=== PATIENT | male | born 1940 | race Caucasian/White ===

== ENCOUNTER 2024-05-11 10:24 | Inpatient (IN) | payer MEDICARE, OTHER ==
[2024-05-11] VITALS (8 sets, daily range): BP systolic 94–139; BP diastolic 46–72; PULSE 57–80; RESP 18–20; TEMP 98.4; O2SAT 94–100
[~2024-05-11] VITALS: Ht 175.3 cm; Wt 74.2 kg
[2024-05-11 11:28] LABS: Basophils # (auto) 0 10 ^3/uL (0-0.2); Basophils % (auto) 0.4 % (0.0-2.0); Eosinophils # (auto) 0 10 ^3/uL (0-0.8); Hemoglobin 18.4 g/dL (13.5-17.5); Lymphocytes # (auto) 2.5 10 ^3/uL (0.4-5.4); Lymphocytes % (auto) 19.1 % (10.0-50.0); Mean Corpuscular Hemoglobin 34.1 pg (28.0-32.0); Mean Corpuscular Hgb Conc. 33.5 g/dL (32.0-36.0); Mean Corpuscular Volume 101.8 fL (80.0-100.0); Monocytes # (auto) 1.5 10 ^3/uL (0-1.3); Monocytes % (auto) 11.5 % (0.0-12.0); Neutrophils # (auto) 8.9 10 ^3/uL (1.6-8.6); Nucleated Red Blood Cells % 0.2 %; Platelet Count (auto) 227 10^3/uL (140-450); Red Blood Cells 5.41 10^6/uL (4.5-5.90); Red Cell Distribution Width 16.1 % (11.8-14.3); White Blood Cell 12.9 10^3/uL (4.4-10.8)
[2024-05-11] MEDS: ETOMIDATE (2MG/ML) 20ML VIAL IV ONE ×2 (11:29→19:03)
[2024-05-11] MEDS: SUCCINYLCHOLINE CHLORIDE 20 MG/ML 10ML VIAL IV ONE ×2 (11:30→19:03)
[2024-05-11] MEDS: NALOXONE HCL 1MG/ML 2ML SYRINGE IV ONE (11:30)
[2024-05-11 11:41] LABS: Chloride 112 mmol/L (98-107); Potassium 4.6 mmol/L (3.5-5.1); Sodium 146 mmol/L (136-145)
[2024-05-11 11:42] LABS: Anion Gap 6 (5-15); Calcium 9.1 mg/dL (8.7-10.4); Carbon Dioxide 28 mmol/L (20-31)
[2024-05-11 11:47] LABS: Blood Urea Nitrogen 20 mg/dL (9-23); Glucose 158 mg/dL (74-106)
[2024-05-11] MEDS: MIDAZOLAM DRIP 50 mg/50mL 50 ML IV SCH (11:53)
[2024-05-11] MEDS: NOREPINEPHRINE 8 MG/250ML KIT 250 ML IV SCH (12:09)
[2024-05-11 12:35] LABS: Urine Bacteria None Seen /hpf (None Seen)
[2024-05-11 13:05] LABS: Urine Blood Negative /uL (Negative); Urine Clarity Clear (Clear); Urine Color Dark-Yellow (Yellow); Urine Hyaline Cast MOD /lpf (0 - 2); Urine Mucus FEW (None Seen); Urine Protein, UAD 2+ (Negative); Urine Specific Gravity 1.043 (1.001-1.035); Urine Urobilinogen 6 mg/dL (Negative); Urine WBC 2 /hpf (0 - 3); Urine pH 5.5 (5.0-9.0)
[2024-05-11 13:11] LABS: Base Excess -4.9 mmol/L (-2.0-3.0)
[2024-05-11 14:19] LABS: Amphetamine Screen, Urine Neg (NEGATIVE); Barbiturate Scree,Urine Neg (NEGATIVE); Benzodiazephine Screen, Urine Neg (NEGATIVE); Cocaine Screen, Urine Neg (NEGATIVE); Opiate Scree,Urine Neg (NEGATIVE)
[2024-05-11 14:20] LABS: Cannabinoid Screen, Urine Neg (NEGATIVE); Phencyclidine Screen, Urine Neg (NEGATIVE)
[2024-05-11 14:34] LABS: INR 1.09 (0.9-1.15); Partial Thromboplastin Time 25.2 SEC (24.5-34.5); Prothrombin Time 11.5 sec (9.3-11.8)
[2024-05-11] MEDS: HEPARIN DRIP/D5W 100UNITS/ML 250 ML IV SCH (14:43)
[2024-05-11] MEDS: HEPARIN SODIUM (PORCINE) 5000 UNITS/ML 1ML VIAL IV ONE (14:56)
[2024-05-11 15:14] LABS: Basophils # (auto) 0.1 10 ^3/uL (0-0.2); Basophils % (auto) 0.3 % (0.0-2.0); Eosinophils # (auto) 0 10 ^3/uL (0-0.8); Eosinophils % (auto) 0.1 % (0.0-7.0); Hematocrit 49.9 % (41.0-53.0); Hemoglobin 17.1 g/dL (13.5-17.5); Lymphocytes # (auto) 2.3 10 ^3/uL (0.4-5.4); Lymphocytes % (auto) 14.5 % (10.0-50.0); Mean Corpuscular Hemoglobin 33.8 pg (28.0-32.0); Mean Corpuscular Hgb Conc. 34.3 g/dL (32.0-36.0); Mean Corpuscular Volume 98.6 fL (80.0-100.0); Monocytes # (auto) 1.6 10 ^3/uL (0-1.3); Neutrophils % (auto) 75.1 % (37.0-80.0); Nucleated Red Blood Cells % 0.3 %; Platelet Count (auto) 265 10^3/uL (140-450); Red Blood Cells 5.07 10^6/uL (4.5-5.90)
[2024-05-11 15:28] LABS: Magnesium 2.3 mg/dL (1.6-2.6)
[2024-05-11] MEDS ORDERED: ASPirin 325 MG TAB PO ONE (17:15)
[2024-05-11] MEDS ORDERED: MORPHINE SULFATE INJ 2 MG/ml SYRG IV PRN ×2 (17:15→23:15)
[2024-05-11] MEDS ORDERED: NITROGLYCERIN 0.4 MG SL TAB SL PRN ×2 (17:15→23:15)
[2024-05-11] MEDS: ASPirin 81 mg TAB PO ONE (17:57)
[2024-05-11] MEDS: CLOPIDOGREL BISULFATE 75 MG TAB PO ONE (17:58)
[2024-05-11] MEDS: DOBUTamine 1000MCG/ML 250 ML IV SCH (17:59)
[2024-05-11] MEDS: FUROSEMIDE 20 MG/2 ML VIAL IV ONE (17:59)
[2024-05-11] MEDS: NALOXONE HCL 1MG/ML 2ML SYRINGE ONE (19:02)
[2024-05-11] MEDS: NOREPINEPHRINE 8 MG/250ML KIT 250 ML IV ONE (19:03)
[2024-05-11 20:45] LABS: INR 1.16 (0.9-1.15); Prothrombin Time 12.2 sec (9.3-11.8)
[2024-05-11] MEDS: ATORVASTATIN 20 MG TAB PO SCH (23:33)
[2024-05-12] VITALS (14 sets, daily range): BP systolic 105–144; BP diastolic 46–74; PULSE 69–88; RESP 18; O2SAT 93–96
[2024-05-12] MEDS: cefTRIAXone 1GM/50ML D5W 50 ML IV ONE (02:00)
[2024-05-12 03:46] LABS: Basophils # (auto) 0.1 10 ^3/uL (0-0.2); Basophils % (auto) 0.4 % (0.0-2.0); Eosinophils # (auto) 0.1 10 ^3/uL (0-0.8); Eosinophils % (auto) 0.6 % (0.0-7.0); Hematocrit 47.7 % (41.0-53.0); Hemoglobin 16.5 g/dL (13.5-17.5); Lymphocytes # (auto) 1.7 10 ^3/uL (0.4-5.4); Lymphocytes % (auto) 13.3 % (10.0-50.0); Mean Corpuscular Hemoglobin 33.9 pg (28.0-32.0); Mean Corpuscular Hgb Conc. 34.6 g/dL (32.0-36.0); Monocytes # (auto) 1.2 10 ^3/uL (0-1.3); Monocytes % (auto) 9.2 % (0.0-12.0); Neutrophils # (auto) 9.7 10 ^3/uL (1.6-8.6); Neutrophils % (auto) 76.5 % (37.0-80.0); Nucleated Red Blood Cells % 0.1 %; Platelet Count (auto) 172 10^3/uL (140-450); Red Blood Cells 4.87 10^6/uL (4.5-5.90); Red Cell Distribution Width 15.5 % (11.8-14.3); White Blood Cell 12.6 10^3/uL (4.4-10.8)
[2024-05-12 03:58] LABS: Alanine Aminotransferase 18 U/L (7-40); Albumin 3.6 g/dL (3.2-4.8); Alkaline Phosphatase 77 U/L (46-116); Anion Gap 7 (5-15); Aspartate Aminotransferase 27 U/L (13-40); BUN/Creatinine Ratio 13.9 (10.0-20.0); Blood Urea Nitrogen 25 mg/dL (9-23); Calcium 9.2 mg/dL (8.7-10.4); Carbon Dioxide 29 mmol/L (20-31); Chloride 110 mmol/L (98-107); Glucose 134 mg/dL (74-106); Potassium 3.4 mmol/L (3.5-5.1); Sodium 146 mmol/L (136-145); Total Protein 5.9 g/dL (5.7-8.2)
[2024-05-12 04:13] LABS: Bilirubin, Total 0.8 mg/dL (0.2-1.0)
[2024-05-12] MEDS: HEPARIN DRIP/D5W 100UNITS/ML 250 ML IV SCH ×2 (05:20→16:46)
[2024-05-12] MEDS: SODIUM CHLOR 0.9% PF (SALINE LOCK) 10ML VIAL/SYR IV SCH (06:01)
[2024-05-12 07:29] LABS: Base Excess 1.3 mmol/L (-2.0-3.0)
[2024-05-12 09:52] LABS: INR 1.15 (0.9-1.15); Partial Thromboplastin Time 64.7 SEC (24.5-34.5); Prothrombin Time 12.1 sec (9.3-11.8)
[2024-05-12] MEDS ORDERED: FUROSEMIDE 20 MG/2 ML VIAL IV SCH (10:00)
[2024-05-12] MEDS: FUROSEMIDE 20 MG/2 ML VIAL IV SCH (10:11)
[2024-05-12] MEDS: FAMOTIDINE (10MG/ML) 2ML VL IV SCH (10:11)
[2024-05-12] MEDS: POTASSIUM CHL 20MEQ/100ML 100 ML IV ONE (10:14)
[2024-05-12] MEDS: ASPirin 81 mg TAB PO SCH (10:30)
[2024-05-12] MEDS: CLOPIDOGREL BISULFATE 75 MG TAB PO SCH (10:30)
[2024-05-12 14:09] LABS: Urine Bacteria MANY /hpf (None Seen); Urine Blood 3+ /uL (Negative); Urine Clarity Turbid (Clear); Urine Color Yellow (Yellow); Urine Hyaline Cast FEW /lpf (0 - 2); Urine Mucus MODERATE (None Seen); Urine Protein, UAD 1+ (Negative); Urine Specific Gravity 1.027 (1.001-1.035); Urine Urobilinogen Normal (Negative); Urine WBC 22 /hpf (0 - 3); Urine pH 5.5 (5.0-9.0)
[2024-05-12 14:12] LABS: Protein, Urine 41.9 mg/dL (1-14)
[2024-05-12 14:23] LABS: Creatinine, Urine 273.38 mg/dL (30.0-125.0)
[2024-05-12 15:56] LABS: INR 1.14 (0.9-1.15); Partial Thromboplastin Time 47.9 SEC (24.5-34.5)
[2024-05-12] MEDS: cefTRIAXone 1GM/50ML D5W 50 ML IV SCH (21:19)
[2024-05-12 22:42] LABS: INR 1.26 (0.9-1.15); Partial Thromboplastin Time 50.6 SEC (24.5-34.5); Prothrombin Time 13.1 sec (9.3-11.8)
[2024-05-13] VITALS (14 sets, daily range): BP systolic 92–118; BP diastolic 45–82; PULSE 74–84; RESP 18–19; O2SAT 92–100
[2024-05-13] MEDS ORDERED: IBUPROFEN 100MG/5ML ORAL SUSP 100 MG/5 ML UD GT PRN (03:45)
[2024-05-13 06:00] LABS: Basophils # (auto) 0 10 ^3/uL (0-0.2); Basophils % (auto) 0.2 % (0.0-2.0); Eosinophils # (auto) 0.1 10 ^3/uL (0-0.8); Eosinophils % (auto) 0.8 % (0.0-7.0); Hematocrit 50.6 % (41.0-53.0); Hemoglobin 17.1 g/dL (13.5-17.5); Lymphocytes # (auto) 1.2 10 ^3/uL (0.4-5.4); Lymphocytes % (auto) 7.1 % (10.0-50.0); Mean Corpuscular Hemoglobin 33.8 pg (28.0-32.0); Mean Corpuscular Hgb Conc. 33.7 g/dL (32.0-36.0); Mean Corpuscular Volume 100.4 fL (80.0-100.0); Monocytes # (auto) 1.4 10 ^3/uL (0-1.3); Monocytes % (auto) 8.4 % (0.0-12.0); Neutrophils # (auto) 14.2 10 ^3/uL (1.6-8.6); Neutrophils % (auto) 83.5 % (37.0-80.0); Nucleated Red Blood Cells % 0.2 %; Platelet Count (auto) 184 10^3/uL (140-450); Red Blood Cells 5.04 10^6/uL (4.5-5.90); Red Cell Distribution Width 16.3 % (11.8-14.3)
[2024-05-13 06:16] LABS: Alanine Aminotransferase 15 U/L (7-40); Albumin 3.7 g/dL (3.2-4.8); Alkaline Phosphatase 88 U/L (46-116); Anion Gap 9 (5-15); Aspartate Aminotransferase 28 U/L (13-40); Bilirubin, Total 1.4 mg/dL (0.2-1.0); Blood Urea Nitrogen 31 mg/dL (9-23); Calcium 9.2 mg/dL (8.7-10.4); Carbon Dioxide 27 mmol/L (20-31); Chloride 109 mmol/L (98-107); Glucose 98 mg/dL (74-106); Potassium 3.6 mmol/L (3.5-5.1); Sodium 145 mmol/L (136-145); Uric Acid 5.8 mg/dL (3.7-9.2)
[2024-05-13 06:39] LABS: INR 1.16 (0.9-1.15); Partial Thromboplastin Time 60.9 SEC (24.5-34.5); Prothrombin Time 12.2 sec (9.3-11.8)
[2024-05-13 07:30] LABS: Base Excess 3.4 mmol/L (-2.0-3.0)
[2024-05-13 12:29] LABS: Prothrombin Time 13.5 sec (9.3-11.8)
[2024-05-13 12:32] LABS: Partial Thromboplastin Time > 139.0 SEC (24.5-34.5)
[2024-05-13] MEDS: HEPARIN DRIP/D5W 100UNITS/ML 250 ML IV SCH (13:32)
[2024-05-13] MEDS: PIPERACILLIN-TAZOB 3.375GM 100 ML IV SCH (13:38)
[2024-05-13] MEDS: ACETAMINOPHEN 650 MG RECT SUPP PR PRN (19:02)
[2024-05-13 19:58] LABS: INR 1.19 (0.9-1.15); Partial Thromboplastin Time 32.1 SEC (24.5-34.5); Prothrombin Time 12.5 sec (9.3-11.8)
[2024-05-14] VITALS (105 sets, daily range): BP systolic 93–150; BP diastolic 43–106; PULSE 58–88; RESP 12–20; TEMP 84.4–99.5; O2SAT 92–100
[2024-05-14 04:30] LABS: Basophils # (auto) 0 10 ^3/uL (0-0.2); Basophils % (auto) 0.3 % (0.0-2.0); Eosinophils # (auto) 0.1 10 ^3/uL (0-0.8); Eosinophils % (auto) 0.7 % (0.0-7.0); Hematocrit 45.1 % (41.0-53.0); Hemoglobin 15.4 g/dL (13.5-17.5); Lymphocytes # (auto) 1.2 10 ^3/uL (0.4-5.4); Lymphocytes % (auto) 7.1 % (10.0-50.0); Mean Corpuscular Hemoglobin 33.5 pg (28.0-32.0); Mean Corpuscular Hgb Conc. 34.2 g/dL (32.0-36.0); Mean Corpuscular Volume 97.9 fL (80.0-100.0); Monocytes # (auto) 1.4 10 ^3/uL (0-1.3); Monocytes % (auto) 8.4 % (0.0-12.0); Neutrophils # (auto) 13.6 10 ^3/uL (1.6-8.6); Neutrophils % (auto) 83.5 % (37.0-80.0); Platelet Count (auto) 180 10^3/uL (140-450); Red Cell Distribution Width 15.9 % (11.8-14.3); White Blood Cell 16.3 10^3/uL (4.4-10.8)
[2024-05-14 04:43] LABS: Alanine Aminotransferase 14 U/L (7-40); Alkaline Phosphatase 88 U/L (46-116); Anion Gap 6 (5-15); BUN/Creatinine Ratio 18.2 (10.0-20.0); Blood Urea Nitrogen 29 mg/dL (9-23); Carbon Dioxide 29 mmol/L (20-31); Chloride 107 mmol/L (98-107); Glucose 139 mg/dL (74-106); Potassium 2.9 mmol/L (3.5-5.1); Sodium 142 mmol/L (136-145)
[2024-05-14 04:44] LABS: Albumin 3.5 g/dL (3.2-4.8); Aspartate Aminotransferase 30 U/L (13-40)
[2024-05-14 04:45] LABS: Bilirubin, Total 1.8 mg/dL (0.2-1.0)
[2024-05-14] MEDS: MEROPENEM 500MG IVPB 50 ML IV ONE (05:58)
[2024-05-14 08:29] LABS: Base Excess 1.9 mmol/L (-2.0-3.0)
[2024-05-14] MEDS: POTASSIUM CHL 20MEQ/100ML 100 ML IV SCH (08:33)
[2024-05-14] MEDS: SPIRONOLACTONE 25 MG TAB PO ONE (09:51)
[2024-05-14] MEDS: ALBUMIN 25% 100 ML IV ONE (11:28)
[2024-05-14] MEDS: BUMETANIDE 2.5mg/10ml (0.25 mg/ml) INJ IV ONE (11:55)
[2024-05-14] MEDS ORDERED: Nepro With Carb Steady 1 Liter Bottle GT SCH (22:30)
[2024-05-14] MEDS: ERTAPENEM SOD INJ 1 GM in SODIUM CHL 0.9% 50 ML IV ONE (22:49)
[2024-05-15] VITALS (106 sets, daily range): BP systolic 99–164; BP diastolic 50–81; PULSE 51–102; RESP 13–29; TEMP 96.4–99.9; O2SAT 93–100
[2024-05-15 03:50] LABS: Basophils # (auto) 0 10 ^3/uL (0-0.2); Basophils % (auto) 0.3 % (0.0-2.0); Eosinophils # (auto) 0.3 10 ^3/uL (0-0.8); Eosinophils % (auto) 2.7 % (0.0-7.0); Hematocrit 45.9 % (41.0-53.0); Hemoglobin 15.8 g/dL (13.5-17.5); Lymphocytes # (auto) 1.2 10 ^3/uL (0.4-5.4); Lymphocytes % (auto) 10.6 % (10.0-50.0); Mean Corpuscular Hemoglobin 33.6 pg (28.0-32.0); Mean Corpuscular Hgb Conc. 34.4 g/dL (32.0-36.0); Mean Corpuscular Volume 97.9 fL (80.0-100.0); Monocytes # (auto) 1.1 10 ^3/uL (0-1.3); Monocytes % (auto) 9.5 % (0.0-12.0); Neutrophils # (auto) 8.9 10 ^3/uL (1.6-8.6); Neutrophils % (auto) 76.9 % (37.0-80.0); Nucleated Red Blood Cells % 0.1 %; Platelet Count (auto) 178 10^3/uL (140-450); Red Blood Cells 4.69 10^6/uL (4.5-5.90); Red Cell Distribution Width 15.8 % (11.8-14.3); White Blood Cell 11.5 10^3/uL (4.4-10.8)
[2024-05-15 03:55] LABS: Anion Gap 8 (5-15); Carbon Dioxide 32 mmol/L (20-31); Chloride 104 mmol/L (98-107); Sodium 144 mmol/L (136-145)
[2024-05-15 03:56] LABS: Calcium 9.7 mg/dL (8.7-10.4)
[2024-05-15 04:01] LABS: Blood Urea Nitrogen 26 mg/dL (9-23); Glucose 105 mg/dL (74-106)
[2024-05-15] MEDS: POTASSIUM CHL 20MEQ/100ML 100 ML IV SCH (05:21)
[2024-05-15 06:17] LABS: Base Excess 5.7 mmol/L (-2.0-3.0)
[2024-05-15 06:18] LABS: Base Excess 5.7 mmol/L (-2.0-3.0)
[2024-05-15] MEDS ORDERED: VANCOMYCIN PER PHARMACY 0 MG IV SCH (13:45)
[2024-05-15] MEDS: MUPIROCIN 2% OINT 15gm or 22gm FOR MRSA NARES EACHNOSTRI SCH (14:37)
[2024-05-15] MEDS: BUMETANIDE 2.5mg/10ml (0.25 mg/ml) INJ IV ONE (14:37)
[2024-05-15] MEDS: SPIRONOLACTONE 25 MG TAB PO ONE (14:37)
[2024-05-15] MEDS: ERYTHROMY OPTH OINT 5mg/gm 1gm or 3.5gm tube OP SCH (18:00)
[2024-05-15] MEDS: ERTAPENEM SOD INJ 0.5 GM in SODIUM CHL 0.9% 50 ML IV SCH (22:29)
[2024-05-15] MEDS: VANCOMYCIN 1.5GM/300ML 300 ML IV ONE (22:29)
[2024-05-16] VITALS (108 sets, daily range): BP systolic 97–167; BP diastolic 42–78; PULSE 54–114; RESP 8–43; TEMP 62.8–99.9; O2SAT 89–100
[2024-05-16 04:28] LABS: Basophils # (auto) 0 10 ^3/uL (0-0.2); Basophils % (auto) 0.4 % (0.0-2.0); Eosinophils # (auto) 0.4 10 ^3/uL (0-0.8); Eosinophils % (auto) 4.1 % (0.0-7.0); Hematocrit 44.7 % (41.0-53.0); Hemoglobin 15.4 g/dL (13.5-17.5); Lymphocytes # (auto) 1.2 10 ^3/uL (0.4-5.4); Lymphocytes % (auto) 13.6 % (10.0-50.0); Mean Corpuscular Hemoglobin 33.9 pg (28.0-32.0); Mean Corpuscular Hgb Conc. 34.5 g/dL (32.0-36.0); Monocytes # (auto) 0.9 10 ^3/uL (0-1.3); Monocytes % (auto) 10.1 % (0.0-12.0); Neutrophils # (auto) 6.3 10 ^3/uL (1.6-8.6); Neutrophils % (auto) 71.8 % (37.0-80.0); Nucleated Red Blood Cells % 0.1 %; Platelet Count (auto) 196 10^3/uL (140-450); Red Blood Cells 4.56 10^6/uL (4.5-5.90); Red Cell Distribution Width 15.9 % (11.8-14.3); White Blood Cell 8.8 10^3/uL (4.4-10.8)
[2024-05-16 04:46] LABS: Alanine Aminotransferase 18 U/L (7-40); Albumin 3.9 g/dL (3.2-4.8); Alkaline Phosphatase 85 U/L (46-116); Anion Gap 10 (5-15); Aspartate Aminotransferase 31 U/L (13-40); BUN/Creatinine Ratio 20.4 (10.0-20.0); Blood Urea Nitrogen 29 mg/dL (9-23); Calcium 9.7 mg/dL (8.7-10.4); Carbon Dioxide 31 mmol/L (20-31); Chloride 104 mmol/L (98-107); Glucose 100 mg/dL (74-106); Magnesium 1.9 mg/dL (1.6-2.6); Potassium 3.2 mmol/L (3.5-5.1); Sodium 145 mmol/L (136-145)
[2024-05-16 04:47] LABS: Bilirubin, Total 1.2 mg/dL (0.2-1.0); Total Protein 6.4 g/dL (5.7-8.2)
[2024-05-16 06:37] LABS: Base Excess 5.1 mmol/L (-2.0-3.0)
[2024-05-16] MEDS: POTASSIUM CHL 20MEQ/100ML 100 ML IV SCH (06:39)
[2024-05-16] MEDS: MAGNESIUM SULFATE 1GM/100ML 100 ML IV ONE (06:55)
[2024-05-16] MEDS: fentaNYL Drip 2500mCg/250mlNS 250 ML IV ONE (09:43)
[2024-05-16] MEDS: fentaNYL Drip 2500mCg/250mlNS 250 ML IV SCH (09:45)
[2024-05-16] MEDS: BUMETANIDE 2.5mg/10ml (0.25 mg/ml) INJ IV ONE (10:46)
[2024-05-16] MEDS: SPIRONOLACTONE 25 MG TAB PO ONE (10:46)
[2024-05-16 11:12] LABS: Base Excess 0.5 mmol/L (-2.0-3.0)
[2024-05-16] MEDS: NITROGLYCERIN 2% OINT 1GM PKG TD ONE (16:15)
[2024-05-16] MEDS: DOBUTamine 1000MCG/ML 250 ML IV SCH ×2 (17:19→20:10)
[2024-05-16 17:56] LABS: Base Excess 3.3 mmol/L (-2.0-3.0)
[2024-05-16 20:45] LABS: Base Excess 4.1 mmol/L (-2.0-3.0)
[2024-05-16] MEDS: ERTAPENEM SOD INJ 1 GM in SODIUM CHL 0.9% 50 ML IV SCH (22:26)
[2024-05-16] MEDS: ONDANSETRON HCL 4 MG/2 ML VIAL IV PRN (22:30)
[2024-05-16] MEDS: VANCOMYCIN 1.25GM/250ML 250 ML IV SCH (23:04)
[2024-05-16 23:08] LABS: Base Excess 4.9 mmol/L (-2.0-3.0)
[2024-05-17] VITALS (95 sets, daily range): BP systolic 95–137; BP diastolic 36–77; PULSE 66–101; RESP 12–29; TEMP 95.9–99.5; O2SAT 90–100
[2024-05-17 04:34] LABS: Basophils # (auto) 0 10 ^3/uL (0-0.2); Basophils % (auto) 0.5 % (0.0-2.0); Eosinophils # (auto) 0.4 10 ^3/uL (0-0.8); Hemoglobin 14.7 g/dL (13.5-17.5); Mean Corpuscular Hemoglobin 34.2 pg (28.0-32.0)
[2024-05-17 04:39] LABS: Eosinophils % (auto) 4.1 % (0.0-7.0); Hematocrit 42.6 % (41.0-53.0); Lymphocytes % (auto) 10.9 % (10.0-50.0); Mean Corpuscular Hgb Conc. 34.6 g/dL (32.0-36.0); Monocytes # (auto) 1.2 10 ^3/uL (0-1.3); Monocytes % (auto) 13.1 % (0.0-12.0); Neutrophils # (auto) 6.4 10 ^3/uL (1.6-8.6); Neutrophils % (auto) 71.4 % (37.0-80.0); Platelet Count (auto) 177 10^3/uL (140-450); Red Blood Cells 4.31 10^6/uL (4.5-5.90); Red Cell Distribution Width 15.5 % (11.8-14.3)
[2024-05-17 04:45] LABS: INR 1.13 (0.9-1.15); Prothrombin Time 11.9 sec (9.3-11.8)
[2024-05-17 04:53] LABS: Alanine Aminotransferase 21 U/L (7-40); Albumin 3.9 g/dL (3.2-4.8); Alkaline Phosphatase 88 U/L (46-116); Anion Gap 10 (5-15); Aspartate Aminotransferase 38 U/L (13-40); BUN/Creatinine Ratio 23.4 (10.0-20.0); Blood Urea Nitrogen 34 mg/dL (9-23); Calcium 9.4 mg/dL (8.7-10.4); Carbon Dioxide 30 mmol/L (20-31); Chloride 105 mmol/L (98-107); Glucose 106 mg/dL (74-106); Magnesium 2.1 mg/dL (1.6-2.6); Potassium 3.8 mmol/L (3.5-5.1); Sodium 145 mmol/L (136-145); Total Protein 6.4 g/dL (5.7-8.2)
[2024-05-17 07:10] LABS: Base Excess 4.6 mmol/L (-2.0-3.0)
[2024-05-17] MEDS: FUROSEMIDE 20 MG/2 ML VIAL IV SCH (09:52)
[2024-05-17] MEDS: ENOXAPARIN SOD 40 MG/0.4 ML SYRINGE SC SCH (09:53)
[2024-05-17] MEDS: POTASSIUM CHL 20MEQ/100ML 100 ML IV ONE (15:02)
[2024-05-18] VITALS (55 sets, daily range): BP systolic 96–144; BP diastolic 29–70; PULSE 74–97; RESP 12–28; TEMP 98.3–99.7; O2SAT 90–100
[2024-05-18 03:39] LABS: Calcium 9.8 mg/dL (8.7-10.4); Carbon Dioxide 29 mmol/L (20-31)
[2024-05-18 03:44] LABS: BUN/Creatinine Ratio 22.4 (10.0-20.0); Blood Urea Nitrogen 28 mg/dL (9-23); Glucose 82 mg/dL (74-106); Magnesium 2.3 mg/dL (1.6-2.6)
[2024-05-18 03:56] LABS: Anion Gap 8 (5-15); Chloride 108 mmol/L (98-107); Potassium 4.5 mmol/L (3.5-5.1); Sodium 145 mmol/L (136-145)
[2024-05-18 04:08] LABS: Basophils # (auto) 0.1 10 ^3/uL (0-0.2); Lymphocytes # (auto) 1.2 10 ^3/uL (0.4-5.4); Mean Corpuscular Hemoglobin 34.1 pg (28.0-32.0); Monocytes # (auto) 1.2 10 ^3/uL (0-1.3); Nucleated Red Blood Cells % 0.1 %
[2024-05-18 04:11] LABS: Basophils % (auto) 0.9 % (0.0-2.0); Eosinophils # (auto) 0.5 10 ^3/uL (0-0.8); Eosinophils % (auto) 5.5 % (0.0-7.0); Lymphocytes % (auto) 11.9 % (10.0-50.0); Mean Corpuscular Volume 100.3 fL (80.0-100.0); Monocytes % (auto) 12.6 % (0.0-12.0); Neutrophils # (auto) 6.7 10 ^3/uL (1.6-8.6); Neutrophils % (auto) 69.1 % (37.0-80.0); Platelet Count (auto) 193 10^3/uL (140-450); Red Blood Cells 4.38 10^6/uL (4.5-5.90); Red Cell Distribution Width 15.7 % (11.8-14.3); White Blood Cell 9.7 10^3/uL (4.4-10.8)
[2024-05-18] MEDS: DOBUTamine 1000MCG/ML 250 ML IV SCH (12:41)
[2024-05-18] MEDS: MUPIROCIN 2% OINT 15gm or 22gm TOP SCH (21:11)
[2024-05-19] VITALS (9 sets, daily range): BP systolic 115–136; BP diastolic 52–79; PULSE 76–105; RESP 16–20; TEMP 98–98.4; O2SAT 90–97
[2024-05-19] MEDS ORDERED: LORazepam 2MG/ML-1ML VIAL IV PRN (09:30)
[2024-05-19] MEDS: LORazepam 2MG/ML-1ML VIAL IV ONE (09:47)
[2024-05-19] MEDS ORDERED: HALOPERIDOL 5 MG TAB PO PRN (13:15)
[2024-05-19] MEDS ORDERED: CLINIMIX PER PHARMACY 0 ML IV SCH (17:00)
[2024-05-19] MEDS ORDERED: DEXTROSE (50%) 50ML SYRG IV SCH (17:15)
[2024-05-19] MEDS: ACCU-CHEK COMFORT CURVE STRIP VI SCH (17:27)
[2024-05-19] MEDS: InsuLIN REG 1unit/0.01ml Soln (100units/ml) SC SCH (17:28)
[2024-05-19] MEDS: AMINO ACID INFUSION IN D10W 1,000 ML IV SCH (20:10)
[2024-05-19] MEDS: HALOPERIDOL LACTATE 5 MG/ML INJ VIAL IM PRN (23:28)
[2024-05-20] VITALS (7 sets, daily range): BP systolic 123–136; BP diastolic 63–69; PULSE 74–83; RESP 18–20; TEMP 97.6–98.6; O2SAT 93–97
[2024-05-20 06:04] LABS: Alanine Aminotransferase 25 U/L (7-40); Albumin 4.5 g/dL (3.2-4.8); Alkaline Phosphatase 95 U/L (46-116); Anion Gap 10 (5-15); Aspartate Aminotransferase 31 U/L (13-40); BUN/Creatinine Ratio 30.6 (10.0-20.0); Blood Urea Nitrogen 41 mg/dL (9-23); Calcium 10.3 mg/dL (8.7-10.4); Carbon Dioxide 31 mmol/L (20-31); Chloride 105 mmol/L (98-107); Glucose 130 mg/dL (74-106); Magnesium 2.6 mg/dL (1.6-2.6); Phosphorus 3.7 mg/dL (2.4-5.1); Sodium 146 mmol/L (136-145); Total Protein 7.5 g/dL (5.7-8.2)
[2024-05-20 07:14] LABS: Triglycerides 183 mg/dL (< 150)
[2024-05-20] MEDS ORDERED: FUROSEMIDE 100 MG/10ML VIAL IV SCH (10:00)
[2024-05-20] MEDS: FUROSEMIDE 40 MG/4 ML VIAL IV ONE (11:11)
[2024-05-21] VITALS (8 sets, daily range): BP systolic 126–138; BP diastolic 65–76; PULSE 70–85; RESP 16–20; TEMP 97.6–98.8; O2SAT 95–97
[2024-05-21 07:37] LABS: Basophils # (auto) 0.1 10 ^3/uL (0-0.2); Basophils % (auto) 1.1 % (0.0-2.0); Eosinophils # (auto) 0.4 10 ^3/uL (0-0.8); Eosinophils % (auto) 3.8 % (0.0-7.0); Hematocrit 52.1 % (41.0-53.0); Hemoglobin 17.5 g/dL (13.5-17.5); Lymphocytes # (auto) 1.7 10 ^3/uL (0.4-5.4); Lymphocytes % (auto) 14.4 % (10.0-50.0); Mean Corpuscular Hemoglobin 33.6 pg (28.0-32.0); Mean Corpuscular Hgb Conc. 33.5 g/dL (32.0-36.0); Monocytes % (auto) 8.2 % (0.0-12.0); Neutrophils # (auto) 8.4 10 ^3/uL (1.6-8.6); Neutrophils % (auto) 72.5 % (37.0-80.0); Nucleated Red Blood Cells % 0.2 %; Platelet Count (auto) 283 10^3/uL (140-450); Red Blood Cells 5.21 10^6/uL (4.5-5.90); Red Cell Distribution Width 15.5 % (11.8-14.3); White Blood Cell 11.6 10^3/uL (4.4-10.8)
[2024-05-21 07:58] LABS: Albumin 4.3 g/dL (3.2-4.8); Alkaline Phosphatase 90 U/L (46-116); Anion Gap 9 (5-15); Aspartate Aminotransferase 49 U/L (13-40); Calcium 10.3 mg/dL (8.7-10.4); Carbon Dioxide 29 mmol/L (20-31); Chloride 107 mmol/L (98-107); Glucose 106 mg/dL (74-106); Magnesium 2.8 mg/dL (1.6-2.6); Sodium 145 mmol/L (136-145)
[2024-05-21 07:59] LABS: Bilirubin, Total 1.1 mg/dL (0.2-1.0); Phosphorus 3.1 mg/dL (2.4-5.1); Total Protein 7.5 g/dL (5.7-8.2)
[2024-05-21 08:01] LABS: Alanine Aminotransferase 27 U/L (7-40); Potassium 4.6 mmol/L (3.5-5.1)
[2024-05-21 08:29] LABS: BUN/Creatinine Ratio 37.2 (10.0-20.0); Blood Urea Nitrogen 45 mg/dL (9-23)
[2024-05-21 09:26] LABS: Base Excess 2.6 mmol/L (-2.0-3.0)
[2024-05-21] MEDS: FUROSEMIDE 40 MG/4 ML VIAL IV SCH (10:43)
[2024-05-22] VITALS (8 sets, daily range): BP systolic 112–122; BP diastolic 51–72; PULSE 61–74; RESP 16–18; TEMP 97.3–97.7; O2SAT 90–98
[2024-05-22] MEDS: VANCOMYCIN 1.25GM/250ML 250 ML IV SCH (01:49)
[2024-05-22 06:22] LABS: Basophils # (auto) 0.1 10 ^3/uL (0-0.2); Basophils % (auto) 0.8 % (0.0-2.0); Eosinophils # (auto) 0.3 10 ^3/uL (0-0.8); Eosinophils % (auto) 2.2 % (0.0-7.0); Hematocrit 55.7 % (41.0-53.0); Hemoglobin 18.1 g/dL (13.5-17.5); Lymphocytes # (auto) 1.2 10 ^3/uL (0.4-5.4); Lymphocytes % (auto) 9.7 % (10.0-50.0); Mean Corpuscular Hemoglobin 33.9 pg (28.0-32.0); Mean Corpuscular Hgb Conc. 32.5 g/dL (32.0-36.0); Mean Corpuscular Volume 104.3 fL (80.0-100.0); Monocytes # (auto) 0.9 10 ^3/uL (0-1.3); Monocytes % (auto) 6.8 % (0.0-12.0); Neutrophils # (auto) 10.2 10 ^3/uL (1.6-8.6); Neutrophils % (auto) 80.5 % (37.0-80.0); Nucleated Red Blood Cells % 0.2 %; Platelet Count (auto) 270 10^3/uL (140-450); Red Blood Cells 5.34 10^6/uL (4.5-5.90); Red Cell Distribution Width 16.4 % (11.8-14.3); White Blood Cell 12.7 10^3/uL (4.4-10.8)
[2024-05-22 17:47] LABS: Alanine Aminotransferase 28 U/L (7-40); Albumin 4.3 g/dL (3.2-4.8); Alkaline Phosphatase 93 U/L (46-116); Anion Gap 8 (5-15); Aspartate Aminotransferase 29 U/L (13-40); Calcium 10.4 mg/dL (8.7-10.4); Carbon Dioxide 30 mmol/L (20-31); Chloride 107 mmol/L (98-107); Glucose 115 mg/dL (74-106); Magnesium 2.4 mg/dL (1.6-2.6); Phosphorus 2.8 mg/dL (2.4-5.1); Potassium 4.2 mmol/L (3.5-5.1); Sodium 145 mmol/L (136-145)
[2024-05-22 17:48] LABS: Bilirubin, Total 1.3 mg/dL (0.2-1.0); Total Protein 7.5 g/dL (5.7-8.2)
[2024-05-22 18:38] LABS: Blood Urea Nitrogen 55 mg/dL (9-23)
[2024-05-23] MEDS ORDERED: LISINOPRIL 5 MG TAB PO SCH (10:00)
[2024-05-23] MEDS ORDERED: SPIRONOLACTONE 25 MG TAB PO SCH (10:00)
== END 2024-05-22 20:36 | DRG 870 ==
LOC: EDBD 10:24 → ER 10:24 → TELE 23:10 → ICU WEST 05-14 00:12 → TELE-EAST 05-18 14:51
PROVIDERS: ADMIT Internal Medicine; ATTEND Internal Medicine
PROC: 5A1955Z Respiratory Ventilation, Greater than 96 Consecutive Hours (ICD-10-PCS; principal; 2024-05-11)
PROC: 0BH18EZ Insertion of Endotracheal Airway into Trachea, Via Natural or Artificial Opening Endoscopic (ICD-10-PCS; 2024-05-11)
PROC: 06HY33Z Insertion of Infusion Device into Lower Vein, Percutaneous Approach (ICD-10-PCS; 2024-05-11)
PROC: 5A09357 Assistance with Respiratory Ventilation, Less than 24 Consecutive Hours, Continuous Positive Airway Pressure (ICD-10-PCS; 2024-05-16)
PROC: 05HC33Z Insertion of Infusion Device into Left Basilic Vein, Percutaneous Approach (ICD-10-PCS; 2024-05-17)
PROC: B54NZZA Ultrasonography of Left Upper Extremity Veins, Guidance (ICD-10-PCS; 2024-05-17)
DX: A41.9 Sepsis, unspecified organism (principal); G93.41 Metabolic encephalopathy; I50.23 Acute on chronic systolic (congestive) heart failure; J96.01 Acute respiratory failure with hypoxia; R57.0 Cardiogenic shock; R65.21 Severe sepsis with septic shock; N17.0 Acute kidney failure with tubular necrosis; I21.A1 Myocardial infarction type 2; J96.02 Acute respiratory failure with hypercapnia; J15.212 Pneumonia due to Methicillin resistant Staphylococcus aureus; E87.0 Hyperosmolality and hypernatremia; J98.11 Atelectasis; N39.0 Urinary tract infection, site not specified; I13.0 Hypertensive heart and chronic kidney disease with heart failure and stage 1 through stage 4 chronic kidney disease, or unspecified chronic kidney disease; E78.5 Hyperlipidemia, unspecified; I44.0 Atrioventricular block, first degree; B96.20 Unspecified Escherichia coli [E. coli] as the cause of diseases classified elsewhere; E87.6 Hypokalemia; N18.9 Chronic kidney disease, unspecified; R73.9 Hyperglycemia, unspecified
CPT/HCPCS: 36415; 36600; 70450; 71045; 76775; 80048; 80053; 80061; 80202; 80307; 81001; 82140; 82306; 82570; 82805; 82962; 83036; 83605; 83735; 83880; 84100; 84156; 84300; 84443; 84478; 84484; 84550; 85025; 85379; 85610; 85730; 87040; 87070; 87077; 87081; 87086; 87088; 87186; 87205; 92610; 93005; 93306; 93886; 94002; 94003; 94640; 94660; 96365; 96375; 97110; 97116; 97163; 97530; 99291; G0378; J0330; J1335; J1815; J2185; J2405; J2543; J3480; J3490; J7060; P9047

== ENCOUNTER 2024-05-29 18:50 | Inpatient (IN) | payer MEDICARE, OTHER ==
[~2024-05-29] VITALS: Ht 175.3 cm; Wt 76.0 kg
[2024-05-29] MEDS: SODIUM CHLORIDE 0.9% 1,000 ML IVB ONE (18:55)
[2024-05-29] MEDS ORDERED: VANCOMYCIN HCL 1000 MG VL IV ONE (19:00)
--- NOTE | 2024-05-29 19:01 | ED.PDOC ---
Altered Mental Status HPI Comments 83 year old male came to ER via EMS due to ALOC. Per EMS, patient was picked up at [facility] for treatment of MRSA with antibiotics. Was noted by caregivers that patient has been acting more altered than usual today, last seen normal or baseline was 2 days ago. Blood sugar was 130 on scene, hypotensive at SBP 68. Patient was given 1 L of NSS en route and BP improved to 74/35 mmHg upon arrival. He does have history of Dementia, CVA, IA, CHF, CKF, Cardiogenic Shock, hypertension and UTI's. Chief Complaint: ALOC Time Seen by MD: 19:00 Reviewed Notes: Nurses Notes, Medications, Allergies Allergies: Coded Allergies: NO KNOWN ALLERGIES (Unverified , 05/11/24) Home Meds No Active Prescriptions or Reported Meds Information Source: Emergency Med Personnel Mode of Arrival: EMS Severity: Unable to Care for Self Timing: Hours Duration: Since onset Prehospital treatment: IVF Quality: Decreased Alertness, Change in Behavior, Confusion History of: CVA, Dementia, Diabetes Past Medical History PAST MEDICAL HISTORY: CHF, CKF, CVA, Dementia, HTN, IA, UTI'S Past Medical History (Other): Cardiogenic shock Surgical History: Pt Confused Family History Family History: Pt Confused Social History Smoker: Pt Confused Alcohol: Pt Confused Drugs: Pt Confused Lives In: [facility] Unable to Obtain due to: Altered Mental Status, Dementia Physical Exam General Appearance: Moderate Distress HEENT: Pale Conjuntivae (L), Pale Conjuntivae (R), Pharynx Normal, TMs Normal Neck: Full Range of Motion, Non-Tender, Normal, Normal Inspection Respiratory: Chest Non-Tender, Decreased Breath Sounds, Normal Breath Sounds, Respiratory Distress Cardiovascular: No Edema, No JVD, No Murmur, No Gallop, Normal Peripheral P ulses, Regular Rate/Rhythm Breast Exam: Deferred Gastrointestinal: No Organomegaly, Non Tender, No Pulsatile Mass, Normal Bowel Sounds, Soft Genitalia: Deferred Pelvic: Deferred Rectal: Deferred Extremities: No calf tenderness, Normal capillary refill, No pedal edema Musculoskeletal : Apperance: Normal 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 Indication: Hypotension, Inability to obtain IV, Suspected infection Room prepared for procedure: Yes Typecasting Machine Operator performed hand hygien: Yes Maximal sterile barrier precau: Mask/Eye shield, Sterile gown, Cap, Sterlie gloves, Large sterlie drape Skin Preparation: Providine iodine Skin preparation completely dr: Yes Insertion site: Right, Infraclavicular Central line catheter type: Tunneled- not dialysis Number of lumens: 3 Central line exchanged over a: Yes Antiseptic ointment applied to: Yes Post Assessment: Chest X-Ray Informed consent obtained: Yes Risks/benefits/alt described: Yes Intubation Indication: Respiratory Insufficiency, Altered Mental Status, Airway Protection Pretreated with: Sedation Medicated with: Succinylcholine (80), Other (Etomidate 20) Intubation Approach: Orotracheal Intubation size: cm (8.0) Informed consent obtained: Yes Risks/benefits/alt described: Yes Differential Diagnosis (ALOC) Differential Diagnosis: Encephalopathy, Sepsis, Hypoxemia, Heart Failure, Renal Failure, Other (hypotension) X-Ray, Labs, Meds, VS Vital Signs Date Time Temp Pulse Resp B/P (MAP) Pulse Ox O2 Delivery O2 Flow Rate FiO2 05/29/24 21:30 99.8 75 18 86/ 98 100 99.8 05/29/24 21:14 72 (46) 98 100 05/29/24 21:14 75 05/29/24 20:57 95/21 05/29/24 20:00 74 05/29/24 19:20 77 29 92 Nasal Cannula* 4 36 05/29/24 19:18 99.8 77 23 91/34 (53) 91 99.8 05/29/24 19:04 Nasal Cannula* 4 36 05/29/24 19:01 78 28 95/32 (53) 90 05/29/24 18:53 99.5 78 20 81/38 (52) 96 05/29/24 18:52 76 Lab Test 05/29/24 22:07 05/29/24 20:57 05/29/24 20:03 05/29/24 20:01 Range/Units Blood Gas Specimen Type Arterial Blood Gas Sample Site Right radial Blood Gas Patient Temperature 37.0 Arterial Blood Date Drawn [id number] Arterial Blood pH 7.224 *L 7.350-7.450 Arterial Blood Partial Pressure CO2 53.4 H 35.0-48.0 mmHg Arterial Blood Partial Pressure O2 80.4 L 83.0-108.0 mmHg Arterial Blood HCO3 21.6 21.0-28.0 mmol/L Arterial Blood Oxygen Saturation 95.4 94.0-98.0 % Arterial Blood Base Excess -6.7 L -2.0-3.0 mmol/L Arterial Blood Oxyhemoglobin 93.6 L 94.0-98.0 % Arterial Blood Carboxyhemoglobin 1.1 0.5-1.5 % Arterial Blood Methemoglobin 0.8 0.0-1.5 % Bacilio Test Modified Blood Gas Total Hemoglobin 15.50 13.5-17.5 g/dL Blood Gas Set Respiration Rate 18.0 Blood Gas Modality Vent - ac FiO2 % 100.0 Blood Gas Tidal Volume 500.0 Blood Gas PEEP or CPAP 5.0 Blood Gas Critical Value Read Back Yes Blood Gas Notified Whom Patricio ontiveros md Blood Gas Notified Time [id number] Blood Gas Notified By Nanda gregorio rrt Troponin I High Sensitivity 124 *H </=54 ng/L SARS-CoV-2 Antigen (Rapid) Negative NEGATIVE POC Glucose 96 70-106 mg/dl Test 05/29/24 19:38 Range/Units White Blood Count 19.0 H 4.4-10.8 10^3/uL Red Blood Count 4.53 4.5-5.90 10^6/uL Hemoglobin 15.1 13.5-17.5 g/dL Hematocrit 46.3 41.0-53.0 % Mean Corpuscular Volume 102.4 H 80.0-100.0 fL Mean Corpuscular Hemoglobin 33.3 H 28.0-32.0 pg Mean Corpuscular Hemoglobin Concent 32.6 32.0-36.0 g/dL Red Cell Distribution Width 16.3 H 11.8-14.3 % Platelet Count 336 140-450 10^3/uL Mean Platelet Volume 9.7 6.9-10.8 fL Neutrophils (%) (Auto) 85.1 H 37.0-80.0 % Lymphocytes (%) (Auto) 5.3 L 10.0-50.0 % Monocytes (%) (Auto) 9.0 0.0-12.0 % Eosinophils (%) (Auto) 0.4 0.0-7.0 % Basophils (%) (Auto) 0.2 0.0-2.0 % Neutrophils # (Auto) 16.2 H 1.6-8.6 10 ^3/uL Lymphocytes # (Auto) 1.0 0.4-5.4 10 ^3/uL Monocytes # (Auto) 1.7 H 0-1.3 10 ^3/uL Eosinophils # (Auto) 0.1 0-0.8 10 ^3/uL Basophils # (Auto) 0 0-0.2 10 ^3/uL Nucleated Red Blood Cells 0.1 % Sodium Level 150 H 136-145 mmol/L Potassium Level 5.3 H 3.5-5.1 mmol/L Chloride Level 112 H 98-107 mmol/L Carbon Dioxide Level 26 20-31 mmol/L Anion Gap 12 5-15 Blood Urea Nitrogen 89 *H 9-23 mg/dL Creatinine 6.42 H 0.700-1.30 mg/dL Glomerular Filtration Rate Calc 8 >90 mL/min BUN/Creatinine Ratio 13.9 10.0-20.0 Serum Glucose 106 74-106 mg/dL Lactic Acid Level 0.9 0.4-2.0 mmol/L Calcium Level 8.7 8.7-10.4 mg/dL Total Bilirubin 0.9 0.2-1.0 mg/dL Aspartate Amino Transferase (AST) 127 H 13-40 U/L Alanine Aminotransferase (ALT) 90 H 7-40 U/L Alkaline Phosphatase 208 H 46-116 U/L Troponin I High Sensitivity 113 *H </=54 ng/L Total Protein 6.5 5.7-8.2 g/dL Albumin 3.4 3.2-4.8 g/dL Current Medications Medications (Trade) Dose Ordered Sig/Elpidio Route Start Time Stop Time Status Last Admin Sodium Chloride 1,000 ml @ 1,000 mls/hr Q1H ONCE IVB 05/29/24 19:00 05/29/24 19:59 DC 05/29/24 18:55 Vancomycin HCl 250 ml @ 250 mls/hr ONCE ONCE IV 05/29/24 20:15 05/29/24 21:14 DC 05/29/24 20:55 Norepinephrine Bitartrate 250 ml @ 3.75 mls/hr Q24H IV 05/29/24 20:15 05/29/24 20:57 IV Hep-Lock was established initially. The patient remained somewhat altered. The patient was somewhat hypotensive so we started norepinephrine. The patient was given another 1 L bolus of normal saline. The patient was then started on vancomycin because the lactic acid level was also elevated. The 1st troponin level came back at 113. The rest of the chemistry panel shows hyperkalemia at 5.3 as well as a BUN of 89 the creatinine of 6.42 This is indicating some aspects of renal failure. An ABG shows a pH of 7.22/pCO2 of 53 and a PO2 of 80.4 The patient will be admitted to the ICU. Because of the patient's altered mental status, we are concerned that the patient is unable to protect his airway The patient was then intubated without any complications. The patient will be admitted to the ICU. A Larson catheter was placed. An NG-tube was placed. The post intubation and central line chest x-ray shows: IMPRESSION: Bronchovascular crowding due to low lung volume with right mid to lower lung zone atelectasis/pneumonia . The peripheral opacities noted on prior imaging appear less conspicuous on current study Obscuration of the left hemidiaphragm which may be from overlying cardiac silhouette with underlying trace effusion /atelectasis not excluded. Endotracheal tube terminates about 1.3 cm above the craig. Enteric tube is in satisfactory position. Right subclavian approach central venous catheter terminating within the right atrium. At this time, the patient will be admitted by the hospitalist. The patient will remain on a Versed drip for sedation after intubation The patient will also remain on norepinephrine for the hypotension Images Reviewed?: Images reviewed and evaluated by me (Dr. Ontiveros) Time of 1ST Reevaluation: 18:52 Reevaluation 1ST: Unchanged Patient Education/Counseling: Other (patient has dementia) Family Education/Counseling: No Family Present Departure 1 Departure Time of Disposition: 22:38 Impression: Primary Impression: Acute metabolic encephalopathy Additional Impressions: DKA (diabetic ketoacidosis) Qualified Codes: E13.11 - Other specified diabetes mellitus with ketoacidosis with coma Hyperkalemia Elevated troponin Disposition: ADMITTED INPATIENT Admit to: ICU Condition: Guarded e-Prescriptions No Active Prescriptions or Reported Meds Critical Care Note Critical Care Time?: Yes (45 min-critical care time only) Critical care comment: hypotensive Stability Stability form required: Yes Unstable for transfer: ICU, CCU, PCU, WILIAN (Intensive VS monitoring), May requi re CPR (possible rapid decline), ED Physician Assesment (Clinical assesment) Heart Score Heart Score: Heart Score Response (Comments) Value History N/A 0 EKG N/A 0 Age N/A 0 Risk Factors N/A 0 Troponin N/A 0 Total 0 I personally scribed for GAEL ONTIVEROS MD ([email or web address]) on 05/29/24 at 19:01. Electronically submitted by Jong Kuo ([email or web address]). I personally scribed for GAEL ONTIVEROS MD ([email or web address]) on 05/29/24 at 19:02. Electronically submitted by Jong Kuo ([email or web address]). I personally scribed for GAEL ONTIVEROS MD ([email or web address]) on 05/29/24 at 20:48. Electronically submitted by Jong Kuo ([email or web address]). I personally scribed for GAEL ONTIVEROS MD ([email or web address]) on 05/29/24 at 21:23. Electronically submitted by Jong Kuo ([email or web address]). GAEL ONTIVEROS MD May 29, 2024 19:01
[2024-05-29 19:20] VITALS: PULSE 77; RESP 29; O2SAT 92
[2024-05-29 20:14] LABS: Basophils # (auto) 0 10 ^3/uL (0-0.2); Basophils % (auto) 0.2 % (0.0-2.0); Eosinophils # (auto) 0.1 10 ^3/uL (0-0.8); Eosinophils % (auto) 0.4 % (0.0-7.0); Hematocrit 46.3 % (41.0-53.0); Hemoglobin 15.1 g/dL (13.5-17.5); Lymphocytes % (auto) 5.3 % (10.0-50.0); Mean Corpuscular Hemoglobin 33.3 pg (28.0-32.0); Mean Corpuscular Hgb Conc. 32.6 g/dL (32.0-36.0); Mean Corpuscular Volume 102.4 fL (80.0-100.0); Monocytes # (auto) 1.7 10 ^3/uL (0-1.3); Neutrophils # (auto) 16.2 10 ^3/uL (1.6-8.6); Neutrophils % (auto) 85.1 % (37.0-80.0); Nucleated Red Blood Cells % 0.1 %; Platelet Count (auto) 336 10^3/uL (140-450); Red Blood Cells 4.53 10^6/uL (4.5-5.90); Red Cell Distribution Width 16.3 % (11.8-14.3)
[2024-05-29 20:41] LABS: Alanine Aminotransferase 90 U/L (7-40); Albumin 3.4 g/dL (3.2-4.8); Alkaline Phosphatase 208 U/L (46-116); Anion Gap 12 (5-15); Aspartate Aminotransferase 127 U/L (13-40); BUN/Creatinine Ratio 13.9 (10.0-20.0); Bilirubin, Total 0.9 mg/dL (0.2-1.0); Calcium 8.7 mg/dL (8.7-10.4); Carbon Dioxide 26 mmol/L (20-31); Chloride 112 mmol/L (98-107); Glucose 106 mg/dL (74-106); Potassium 5.3 mmol/L (3.5-5.1); Sodium 150 mmol/L (136-145); Total Protein 6.5 g/dL (5.7-8.2)
[2024-05-29] MEDS: VANCOMYCIN 1GM/200ML PREMIX 250 ML IV ONE (20:55)
[2024-05-29] MEDS: NOREPINEPHRINE 8 MG/250ML KIT 250 ML IV SCH (20:57)
[2024-05-29] MEDS: ETOMIDATE (2MG/ML) 20ML VIAL IV ONE (21:03)
[2024-05-29] MEDS: SUCCINYLCHOLINE CHLORIDE 20 MG/ML 10ML VIAL IV ONE (21:03)
[2024-05-29] MEDS: MIDAZOLAM DRIP 50 mg/50mL 50 ML IV SCH (21:05)
[2024-05-29] MEDS: MIDAZOLAM DRIP 50 mg/50mL 50 ML IV ONE (21:07)
[2024-05-29 21:15] VITALS: PULSE 76; RESP 19; O2SAT 100
--- NOTE | 2024-05-29 21:21 | ECG ---
[facility] Test Date: 2024-05-29 Test Time: 21:14:46 Pat Name: KEYONA SZYMANSKI Department: ED Room: [address] [place] [address] Gender: M Cobbler Upper: NADIR : 1940 Requested By: GAEL STACY Order Number: [id number] Reading MD: Raymond Gates Measurements Intervals Atkinson Rate: 75 P: -53 RI: 188 QRS: -37 QRSD: 94 T: 44 QT: 369 QTc: 413 Interpretive Statements Sinus or ectopic atrial rhythm Inferior infarct, old Abnormal lateral Q waves Anterior infarct, old Electronically Signed On 05-31-2024 11:50:45 PDT by Raymond Gates Please click the below link to view image of tracing.
[2024-05-29 21:30] VITALS: BP 86/27; PULSE 75; RESP 18; TEMP 99.8; O2SAT 98
[2024-05-29 21:39] LABS: COVID19 ANTIGEN SOFIA FIA NEGATIVE (NEGATIVE)
[2024-05-29 21:40] LABS: Blood Urea Nitrogen 89 mg/dL (9-23)
--- NOTE | 2024-05-29 21:53 | DVH ---
CHEST RADIOGRAPH Indication:sob Technique: Single frontal view of the chest was obtained Comparison: XY CHEST XRAY 1 VIEW on DOS: 05/20/24, XY CHEST XRAY 1 VIEW on DOS: 05/18/24, XY CHEST XRAY 1 VIEW on DOS: 05/17/24, XY CHEST XRAY 1 VIEW on DOS: 05/16/24, XY CHEST XRAY 1 VIEW on DOS: 05/15/24 FINDINGS: Lines and Tubes: Endotracheal tube terminates about 1.3 cm above the craig. Enteric tube is in satis factory position. Right subclavian approach central venous catheter terminating within the right atri um. Lungs: Bronchovascular crowding due to low lung volumes. Right mid to lower lung zone opacities . In distinctness of the left hemidiaphragm. Bronchovascular crowding due to low lung volumes. Unchanged 0 .9 cm nodular densities over the left mid to lower lung zones. No pneumothorax. Cardiomediastinal contours: Unremarkable Bones: No acute osseous abnormality. IMPRESSION: Bronchovascular crowding due to low lung volume with right mid to lower lung zone atelectasis/pneumon ia . The peripheral opacities noted on prior imaging appear less conspicuous on current study Obscuration of the left hemidiaphragm which may be from overlying cardiac silhouette with underlying trace effusion /atelectasis not excluded. Endotracheal tube terminates about 1.3 cm above the craig. Enteric tube is in satisfactory position. Right subclavian approach central venous catheter terminating within the right atrium.
[2024-05-29 22:16] LABS: Base Excess -6.7 mmol/L (-2.0-3.0)
[2024-05-29] MEDS ORDERED: NITROGLYCERIN 0.4 MG SL TAB SL PRN (22:30)
[2024-05-29] MEDS: SODIUM ZIRCONIUM CYCL 10 GM PAK PO ONE (22:30)
[2024-05-29] MEDS ORDERED: ALBUTEROL SULF 2.5 MG/0.5ML(0.5%) NEB SOLN NEB PRN (22:30)
[2024-05-29] MEDS ORDERED: VANCOMYCIN PER PHARMACY 0 MG IV SCH (22:30)
[2024-05-29] MEDS: SOD CHL 0.45% 1,000 ML IV ONE (22:30)
[2024-05-29 22:59] LABS: Urine Bacteria FEW /hpf (None Seen); Urine Blood 1+ /uL (Negative); Urine Clarity Ex.Turbid (Clear); Urine Color Orange (Yellow); Urine Hyaline Cast MANY /lpf (0 - 2); Urine Protein, UAD 1+ (Negative); Urine Specific Gravity 1.025 (1.001-1.035); Urine Urobilinogen 2 mg/dL (Negative); Urine WBC <1 /hpf (0 - 3)
[2024-05-29] MEDS: PIPERACILLIN-TAZOB 3.375GM 100 ML IV SCH (23:00)
[2024-05-29 23:18] LABS: Magnesium 2.6 mg/dL (1.6-2.6)
--- NOTE | 2024-05-29 23:24 | DVH ---
EXAM: CT HEAD WITHOUT CONTRAST HISTORY: aloc COMPARISON: CT HEAD WITHOUT CONTRAST on DOS: 05/11/24 TECHNIQUE: Axial images were obtained and reformatted in coronal and sagittal planes. All CT scans at this medical facility are performed using dose modulation techniques as appropriate t o a performed exam including the following: Automated exposure control was utilized; adjustment of th e MA and/or KV according to patient size; and use of iterative reconstruction technique. CT Dose: CTDI volume is 65.87 mGy. Dose-length product is 1165.98 mGy*cm FINDINGS: Supratentorial Region: No evidence for large acute territorial ischemia. No intracranial hemorrhage is noted. Encephalomalacia/gliosis involving the posterior left frontal lobe. Posterior Fossa: No acute abnormality. Brainstem: Unremarkable. Sellar/Suprasellar Region: Unremarkable. Ventricles, Cisterns, Sulci: Age-appropriate. Orbits: Unremarkable. Paranasal Sinuses: Unremarkable. Mastoid Air Cells: Unremarkable. Vasculature: Unremarkable. Bones/Soft Tissues: No acute abnormality. Other: None. IMPRESSION: No acute intracranial abnormalities. Encephalomalacia/ gliosis involving the posterior left frontal lobe which may be from old infarct. If symptoms persist consider further evaluation with MRI.
[2024-05-30] VITALS (100 sets, daily range): BP systolic 79–168; BP diastolic 34–78; PULSE 46–88; RESP 18–22; TEMP 97.7–99.3; O2SAT 90–100
[2024-05-30] MEDS: SUCCINYLCHOLINE CHLORIDE 20 MG/ML 10ML VIAL IV ONE (00:39)
[2024-05-30] MEDS: ETOMIDATE (2MG/ML) 20ML VIAL IV ONE (00:39)
[2024-05-30 00:50] LABS: Base Excess -6.5 mmol/L (-2.0-3.0)
[2024-05-30] MEDS: ONDANSETRON HCL 4 MG/2 ML VIAL IV PRN (01:50)
[2024-05-30 02:16] LABS: INR 1.08 (0.9-1.15); Partial Thromboplastin Time 35.7 SEC (24.5-34.5); Prothrombin Time 11.4 sec (9.3-11.8)
[2024-05-30 05:44] LABS: Basophils # (auto) 0.1 10 ^3/uL (0-0.2); Basophils % (auto) 0.4 % (0.0-2.0); Eosinophils # (auto) 0.2 10 ^3/uL (0-0.8); Eosinophils % (auto) 1.1 % (0.0-7.0); Hematocrit 42.9 % (41.0-53.0); Hemoglobin 14.3 g/dL (13.5-17.5); Lymphocytes # (auto) 0.8 10 ^3/uL (0.4-5.4); Lymphocytes % (auto) 4.2 % (10.0-50.0); Mean Corpuscular Hemoglobin 33.1 pg (28.0-32.0); Mean Corpuscular Hgb Conc. 33.2 g/dL (32.0-36.0); Mean Corpuscular Volume 99.6 fL (80.0-100.0); Monocytes # (auto) 1.5 10 ^3/uL (0-1.3); Neutrophils # (auto) 16.2 10 ^3/uL (1.6-8.6); Neutrophils % (auto) 86.3 % (37.0-80.0); Nucleated Red Blood Cells % 0.1 %; Platelet Count (auto) 293 10^3/uL (140-450); Red Blood Cells 4.31 10^6/uL (4.5-5.90); Red Cell Distribution Width 15.9 % (11.8-14.3); White Blood Cell 18.8 10^3/uL (4.4-10.8)
[2024-05-30 06:05] LABS: Alanine Aminotransferase 78 U/L (7-40); Albumin 2.9 g/dL (3.2-4.8); Alkaline Phosphatase 193 U/L (46-116); Anion Gap 14 (5-15); Aspartate Aminotransferase 111 U/L (13-40); BUN/Creatinine Ratio 16.5 (10.0-20.0); Calcium 8.3 mg/dL (8.7-10.4); Carbon Dioxide 19 mmol/L (20-31); Chloride 113 mmol/L (98-107); Glucose 149 mg/dL (74-106); Potassium 3.7 mmol/L (3.5-5.1); Sodium 146 mmol/L (136-145)
[2024-05-30 06:06] LABS: Bilirubin, Total 1.2 mg/dL (0.2-1.0); Total Protein 5.6 g/dL (5.7-8.2)
--- NOTE | 2024-05-30 06:37 | DVHHP2 ---
History of Present Illness Reason for Visit: Altered mental status History of Present Illness 83-year-old male presents for evaluation of altered mental status. Patient is a resident [facility] he was tolerated by personnel to be progressively acting more confused from baseline for the past two days. Patient was brought in for evaluation. On arrival patient continued to be lethargic with a blood pressure in the 70s. Was decided by ER provider to intubate the patient for airway protection. Past Medical History Dementia, hypertension, mi, CVA, chronic kidney disease, CHF Past Surgical History Unknown Family History Unknown Smoke: No ALCOHOL: none Drugs: None Lives: with Family Review of Systems Review of Systems Review of systems are currently negative otherwise addressed in HPI. Allergies: Coded Allergies: NO KNOWN ALLERGIES (Unverified , 05/11/24) Medications Current Medications Medications Dose Ordered Sig/Elpidio Route Start Time Stop Time Status Last Admin Dose Admin Norepinephrine Bitartrate 250 ml @ 3.75 mls/hr Q24H IV 05/29/24 20:15 05/29/24 20:57 3.75 MLS/HR Aspirin 162 mg DAILY PO 05/30/24 10:00 Atorvastatin Calcium 10 mg HS PO 05/30/24 22:00 Vancomycin HCl 0 ml @ 0 mls/hr UD IV 05/29/24 22:30 UNV Piperacillin Sod/ Tazobactam Sod 100 ml @ 25 mls/hr Q12HR IV 05/29/24 23:00 05/29/24 23:00 25 MLS/HR Albuterol 2.5 mg Q6HPRN PRN NEB 05/29/24 22:30 Ondansetron HCl 4 mg Q4HP PRN IV 05/29/24 22:30 Acetaminophen 650 mg Q6HP PRN PO 05/29/24 22:30 Nitroglycerin 0.4 mg Q5MINP PRN SL 05/29/24 22:30 Morphine Sulfate 2 mg Q30M PRN IV 05/29/24 22:30 Midazolam HCl 50 ml @ 1 mls/hr Q24H IV 05/29/24 22:30 05/29/24 22:30 2 MLS/HR Exam Vital Signs Vital Signs Date Time Temp Pulse Resp B/P (MAP) Pulse Ox O2 Delivery O2 Flow Rate FiO2 05/30/24 06:30 99.1 55 22 107/41 (63) 98 210.4 05/30/24 06:06 90 05/30/24 05:56 Mechanical Ventilator+ 05/29/24 19:20 4 Exam Gen: 83-year-old in no apparent distress Skin: Warm, dry, normal color and texture, no rash. HEENT: Normocephalic atraumatic, mucous membranes moist and pink. Neck: Cervical and supraclavicular nodes normal without enlargement, trachea is midline, thyroid gland is normal without masses. Pulmonary: Intubated, diminished breath sounds bilaterally Cardiac: Regular rate and rhythm. No murmur Abdomen: Soft, nontender, nondistended, bowel sounds present all 4 quadrants, no guarding, no rigidity, no organomegaly. Extremities: No cyanosis, clubbing, no edema Neuro: Sedated Labs/Xrays ORDERING PHYSICIAN: GAEL STACY MD PROCEDURE(s): CXRP - CHEST PORTABLE REASON: sob ORDER NUMBER(s): [id number], ACCESSION NUMBER(s): [id number] CHEST RADIOGRAPH Indication:sob Technique: Single frontal view of the chest was obtained Comparison: XY CHEST XRAY 1 VIEW on DOS: 05/20/24, XY CHEST XRAY 1 VIEW on DOS: 05/18/24, XY CHEST XRAY 1 VIEW on DOS: 05/17/24, XY CHEST XRAY 1 VIEW on DOS: 05/16/24, XY CHEST XRAY 1 VIEW on DOS: 05/15/24 FINDINGS: Lines and Tubes: Endotracheal tube terminates about 1.3 cm above the craig. Enteric tube is in satisfactory position. Right subclavian approach central venous catheter terminating within the right atrium. Lungs: Bronchovascular crowding due to low lung volumes. Right mid to lower lung zone opacities . Indistinctness of the left hemidiaphragm. Bronchovascular crowding due to low lung volumes. Unchanged 0.9 cm nodular densities over the left mid to lower lung zones. No pneumothorax. Cardiomediastinal contours: Unremarkable Bones: No acute osseous abnormality. IMPRESSION: Bronchovascular crowding due to low lung volume with right mid to lower lung zone atelectasis/pneumonia . The peripheral opacities noted on prior imaging appear less conspicuous on current study Obscuration of the left hemidiaphragm which may be from overlying cardiac silhouette with underlying trace effusion /atelectasis not excluded. Endotracheal tube terminates about 1.3 cm above the craig. Enteric tube is in satisfactory position. Right subclavian approach central venous catheter terminating within the right atrium. RING PHYSICIAN: GAEL STACY MD PROCEDURE(s): HWOCT - HEAD WITHOUT CONTRAST REASON: aloc ORDER NUMBER(s): [id number], ACCESSION NUMBER(s): [id number] EXAM: CT HEAD WITHOUT CONTRAST HISTORY: aloc COMPARISON: CT HEAD WITHOUT CONTRAST on DOS: 05/11/24 TECHNIQUE: Axial images were obtained and reformatted in coronal and sagittal planes. All CT scans at this medical facility are performed using dose modulation techniques as appropriate to a performed exam including the following: Automated exposure control was utilized; adjustment of the MA and/or KV according to patient size; and use of iterative reconstruction technique. CT Dose: CTDI volume is 65.87 mGy. Dose-length product is 1165.98 mGy*cm FINDINGS: Supratentorial Region: No evidence for large acute territorial ischemia. No intracranial hemorrhage is noted. Encephalomalacia/gliosis involving the posterior left frontal lobe. Posterior Fossa: No acute abnormality. Brainstem: Unremarkable. Sellar/Suprasellar Region: Unremarkable. Ventricles, Cisterns, Sulci: Age-appropriate. Orbits: Unremarkable. Paranasal Sinuses: Unremarkable. Mastoid Air Cells: Unremarkable. Vasculature: Unremarkable. Bones/Soft Tissues: No acute abnormality. Other: None. IMPRESSION: No acute intracranial abnormalities. Encephalomalacia/ gliosis involving the posterior left frontal lobe which may be from old infarct. If symptoms persist consider further evaluation with MRI. Labs Test 05/30/24 05:00 05/30/24 00:30 05/29/24 22:40 05/29/24 22:31 Range/Units White Blood Count 18.8 H 4.4-10.8 10^3/uL Red Blood Count 4.31 L 4.5-5.90 10^6/uL Hemoglobin 14.3 13.5-17.5 g/dL Hematocrit 42.9 41.0-53.0 % Mean Corpuscular Volume 99.6 80.0-100.0 fL Mean Corpuscular Hemoglobin 33.1 H 28.0-32.0 pg Mean Corpuscular Hemoglobin Concent 33.2 32.0-36.0 g/dL Red Cell Distribution Width 15.9 H 11.8-14.3 % Platelet Count 293 140-450 10^3/uL Mean Platelet Volume 9.2 6.9-10.8 fL Neutrophils (%) (Auto) 86.3 H 37.0-80.0 % Lymphocytes (%) (Auto) 4.2 L 10.0-50.0 % Monocytes (%) (Auto) 8.0 0.0-12.0 % Eosinophils (%) (Auto) 1.1 0.0-7.0 % Basophils (%) (Auto) 0.4 0.0-2.0 % Neutrophils # (Auto) 16.2 H 1.6-8.6 10 ^3/uL Lymphocytes # (Auto) 0.8 0.4-5.4 10 ^3/uL Monocytes # (Auto) 1.5 H 0-1.3 10 ^3/uL Eosinophils # (Auto) 0.2 0-0.8 10 ^3/uL Basophils # (Auto) 0.1 0-0.2 10 ^3/uL Nucleated Red Blood Cells 0.1 % Blood Gas Specimen Type Arterial Blood Gas Sample Site Right radial Blood Gas Patient Temperature 37.0 Arterial Blood Date Drawn [id number] Arterial Blood pH 7.361 7.350-7.450 Arterial Blood Partial Pressure CO2 31.9 L 35.0-48.0 mmHg Arterial Blood Partial Pressure O2 96.3 83.0-108.0 mmHg Arterial Blood HCO3 17.7 L 21.0-28.0 mmol/L Arterial Blood Oxygen Saturation 97.6 94.0-98.0 % Arterial Blood Base Excess -6.5 L -2.0-3.0 mmol/L Arterial Blood Oxyhemoglobin 96.2 94.0-98.0 % Arterial Blood Carboxyhemoglobin 0.7 0.5-1.5 % Arterial Blood Methemoglobin 0.7 0.0-1.5 % Bacilio Test Modified Blood Gas Total Hemoglobin 15.80 13.5-17.5 g/dL Blood Gas Set Respiration Rate 22.0 Blood Gas Modality Vent - ac FiO2 % 100.0 Blood Gas Tidal Volume 500.0 Blood Gas PEEP or CPAP 5.0 Prothrombin Time 11.4 9.3-11.8 sec Prothrombin Time INR 1.08 0.9-1.15 Activated Partial Thromboplast Time 35.7 H 24.5-34.5 SEC Urine Color [place] H Yellow Urine Clarity Ex.turbid Clear Urine pH 5.0 5.0-9.0 Urine Specific [place] 1.025 1.001-1.035 Urine Protein 1+ H Negative Urine Ketones Negative Negative Urine Blood 1+ H Negative /uL Urine Nitrite Negative Negative Urine Bilirubin Negative Negative Urine Urobilinogen 2 H Negative mg/dL Urine Leukocyte Esterase Negative Negative /uL Urine RBC 11 0 - 3 /hpf Urine WBC <1 0 - 3 /hpf Urine Squamous Epithelial Cells Few <5 /hpf Urine Bacteria Few H None Seen /hpf Urine Hyaline Casts Many 0 - 2 /lpf Urine Glucose Trace Normal mg/dL Test 05/29/24 22:30 05/29/24 22:07 05/29/24 20:03 05/29/24 20:01 Range/Units Magnesium Level 2.6 1.6-2.6 mg/dL Creatine Kinase 118 46-171 U/L Troponin I High Sensitivity 134 *H </=54 ng/L Blood Gas Critical Value Read Back Yes Blood Gas Notified Whom Patricio stacy md Blood Gas Notified Time Blood Gas Notified By Nanda gregorio rrt SARS-CoV-2 Antigen (Rapid) Negative NEGATIVE POC Glucose 96 70-106 mg/dl Test 05/29/24 19:38 Range/Units Lactic Acid Level 0.9 0.4-2.0 mmol/L Assessment/Plan Assessment/Plan Assessment Septic shock Acute on chronic renal failure Questionable pneumonia Elevated troponin Admit the patient to ICU to the hospitalist Maintenance IV fluids Vancomycin/Zosyn Cardiology consultation Total critical care time excluding procedures performed is 50 minutes. Plan discussed with: Other My Orders Orders - SHARMIN MARCH Procedure Category Date Status Time Aspirin Tablet PHA 05/30/24 In Process 10:00 Atorvastatin (Lipitor) PHA 05/30/24 In Process 22:00 Sod Chl 0.45% (Sodium PHA 05/29/24 In Process Chloride 0.45% Via 22:30 Vancomycin Per PHA 05/29/24 Pending Pharmacy 22:30 * Cardiology Consult CONS 05/29/24 Transmitted 22:16 *Dr. [facility] CONS 05/29/24 Trans[place] 22:16 Albuterol Medneb PHA 05/29/24 In Process (Ventolin Medneb) 22:30 Chin Strap Maker GIRISH 05/29/24 In Process 22:16 Daily Weight GIRISH 05/29/24 In Process 22:16 Vs Q1hr And Prn GIRISH 05/29/24 In Process 22:16 Admit ADMIT 05/29/24 Transmitted 22:16 Ondansetron Hcl PHA 05/29/24 In Process (Zofran) 22:30 Comprehensive LAB 05/30/24 In Process Metabolic Panel 04:00 Echo 2d Mode Cardiac US 05/29/24 Logged DOP 22:16 Condition: Unstable GIRISH 05/29/24 In Process 22:16 Acetaminophen Tablet PHA 05/29/24 In Process (Tylenol Tablet) 22:30 Maintain Bed Rest GIRISH 05/29/24 In Process 22:16 Sequential GIRISH 05/29/24 In Process Compression Device Nitroglycerin PHA 05/29/24 In Process Sublingual (Ntrostat 22:30 Morphine Sulfate PHA 05/29/24 In Process Injection 22:30 Stat Ekg For Chest GIRISH 05/29/24 In Process Pain 22:16 Notify Md Of Changes GIRISH 05/29/24 In Process From Base 22:16 Vacuum Tester Cans For GIRISH 05/29/24 In Process 24 Hours 22:16 Emergency Dysrhythmia GIRISH 05/29/24 In Process Protocol 22:16 Rhythm Strips Once GIRISH 05/29/24 In Process Every Shift 22:16 Oxygen By Nasal RT 05/29/24 Transmitted Cannula 22:16 Piperacillin-Tazob PHA 05/29/24 In Process 3.375gm (Zosyn 3.375g 23:00 Ventilator Orders RT 05/29/24 Transmitted 22:28 Abg W/ Co-Ox RT 05/29/24 Logged 22:30 Mrsa Screen TY 05/30/24 In Process 03:15 * Pewter [employer]ator CONS 05/30/24 Transmitted Consult * Dietary Consult CONS 05/30/24 Transmitted 03:55 * Wound Consult CONS 05/30/24 Transmitted B-Type Natriuretic LAB 05/30/24 In Process Peptide 05:44 Date of Service: May 29, 2024 Billing Provider: SHARMIN MARCH Common Visit Codes: [id number] CARE 30-74 MIN SHARMIN MARCH May 30, 2024 06:37
[2024-05-30 06:50] LABS: Blood Urea Nitrogen 89 mg/dL (9-23)
[2024-05-30 06:59] LABS: Base Excess -3.9 mmol/L (-2.0-3.0)
[2024-05-30] MEDS: SOD CHL 0.45% 1,000 ML IV SCH (07:57)
[2024-05-30] MEDS: ASPirin 81 mg TAB PO SCH (07:58)
[2024-05-30] MEDS: NOREPINEPHRINE BITARTRATE 32 MG in SODIUM CHL 0.9% 218 ML IV SCH ×3 (09:11→19:45)
--- NOTE | 2024-05-30 09:28 | DVHINCON2 ---
Date Seen: May 30, 2024 Referring Physician Colten LINDQUIST History of Present Illness Reasons for consultation: Elevated troponin HPI: An 83-year-old male with past medical history significant for Dementia, hypertension, mi, CVA, chronic kidney disease, CHF from [facility] was brought by EMS in for evaluation due to increasing confusion over the past two days. Upon arrival, he was lethargic with a low blood pressure in the 70s. The ER provider decided to intubate him for airway protection. Patient was previously seen by cardiology team on May 11, 2024, where patient presented with syncopal event and was intubated as well, found to have cardiogenic shock, NSTEMI, acute on chronic HFrEF, bradycardia with a associated first-degree AV block, dyslipidemia. During this time. Patient was found to have type 2 NSTEMI, cardiogenic shock with heparin of 5%, status post dobutamine Syncopal episode most likely cardiac in the setting of cardiogenic shock Cardiogenic shock Acute on chronic systolic heart failure (HFrEF 5%) NSTEMI type II due to above AB likely due to vasomotor nephropathy in the setting of cardiogenic shock Hypokalemia UTI Acute hypoxic and hypercapnic respiratory failure due to CHF Hyperglycemia Dyslipidemia Discharge Disposition: Retirement Facility PMH Dementia, hypertension, CAD, stroke, chronic kidney disease stage III, CHF, CKF, CVA, Dementia, HTN, [place], UTI'S E coli ESBL, history of cardiogenic shock- HFrEF 5%,MRSA. In the ears -Dobutamine drip at 5mcg/kg/min, sacral wound with Graham score is 17. Heart failure with reduced ejection fraction 5-7%, RV dysfunction, [id number] aortic regurgitation calcified calcified ascending aorta, biatrial PSH Unknown Family history Unknown Social history Unknown Meds Review of Systems (ROS): CONSTITUTIONAL: Fever, night sweats, weight loss, Lymphadenopathy, ecchymoses, fatigue: Negative DERMATOLOGIC: Rash, New/growing/changing skin lesions: Negative HEENT: Vision change, eye pain, Rhinorrhea, sinus pain, epistaxis, dysphagia, odynophagia, globus sensation, Change in hearing, tinnitus, vertigo, otalgia, Dental problems, oral ulcers or lesions: : Negative ENDOCRINE: Weight change, heat or cold intolerance, tremor, insomnia, neck pain or swelling, Polyuria, polydipsia, polyphagia, Abnormal hair growth, change in nails: Negative CARDIOVASCULAR: Chest pain, palpitations, syncope, Edema, cyanosis, claudication, Orthopnea, paroxysmal nocturnal dyspnea: Negative PULMONARY: Shortness of breath, dyspnea with exertion, Cough, hemoptysis, wheezing, chest pain : Negative GI: Nausea, vomiting, diarrhea, melena, hematochezia, Change in appetite, abdominal pain, change in bowel habits or stools: Negative : Dysuria, frequency, urgency, Urinary incontinence, hematuria, foamy urine, nocturia, Change in libido, erectile dysfunction, Change in menses, dysmenorrh ea, dyspaerunia, pelvic pain: : Negative MUSCULOSKELETAL: Joint swelling or pain, muscle pain, back pain: : Negative NEUROLOGIC: Headache, scotoma, Change in smell or taste, change in facial muscles, Muscle weakness, paresthesias, anesthesia, Ataxia, change in speech: Negative PSYCHIATRIC: Depression, anxiety, hallucinations, rafael, suicidal/homicidal thoughts, Binging, purging: Negative Physical exam GENERAL APPEARANCE: Well developed, well nourished, alert and cooperative, and appears to be in no acute distress. HEENT: Normocephalic NECK: Neck supple, non-tender without lymphadenopathy, masses or thyromegaly. CARDIAC: Normal S1 and S2. No S3, S4 or murmurs. Rhythm is regular. There is no peripheral edema, cyanosis or pallor. Extremities are warm and well perfused. Capillary refill is less than 2 seconds. No carotid bruits. LUNGS: Clear to auscultation and percussion without rales, rhonchi, wheezing or diminished breath sounds. ABDOMEN: Positive bowel sounds. Soft, mildly distended, nontender. No guarding or rebound. No masses. MUSCULOSKELETAL: Adequately aligned spine. ROM intact spine and extremities. No joint erythema or tenderness. Normal muscular development. Normal gait. EXTREMITIES: No significant deformity or joint abnormality. No edema. Peripheral pulses intact. No varicosities. NEUROLOGICAL: CN II-XII intact. Strength and sensation symmetric and intact throughout. Reflexes 2+ throughout. Cerebellar testing normal. SKIN: Skin normal color, texture and turgor with no lesions or eruptions. Diagnostic data Labs: Leukocytosis 45594, predominant neutrophilia, mild hyponatremia, BUN 89, creatinine 5.41 with known baseline of 1.2 GFR 10, AST 111, ALT 78, 193 alkaline phosphatase, ammonia 45, BNP 42.87, troponin 134, 124, 113, COVID negative, lactate 0.9 Other imaging: CT noncontrast head 05/29 No acute intracranial abnormalities. Encephalomalacia/ gliosis involving the posterior left frontal lobe which may be from old infarct. If symptoms persist consider further evaluation with MRI. Carotid Doppler ultrasound came back showing no hemodynamic significant stenosis CXR: 05/29/2024 Bronchovascular crowding due to low lung volume with right mid to lower lung zone atelectasis/pneumonia . The peripheral opacities noted on prior imaging appear less conspicuous on current study Obscuration of the left hemidiaphragm which may be from overlying cardiac silhouette with underlying trace effusion /atelectasis not excluded. Endotracheal tube terminates about 1.3 cm above the craig. Enteric tube is in satisfactory position. Right subclavian approach central venous catheter terminating within the right atrium. Echo: 05/12/2024 lvef 5-7% by vsual estimate rv dysfunctio noted mild to modeate aortic regurg ascending aorta calcified biattial enlargement EK05/29/2024 Sinus or ectopic atrial rhythm Inferior infarct, old Abnormal lateral Q waves Anterior infarct, old Telemetry data: Normal sinus rhythm in 70s to 90s at rest. Stress test: Never done before/not available. Coronary catheterization: Never done before/not available. Assessment Sinus bradycardia in 50s Septic shock Intubated and sedated patient Respiratory failure, hypercapnic hypoxic respiratory failure Acute renal failure Known CKD stage 3 History of recurrent UTI with ESBL E coli Stage D heart failure NSTEMI Acute kidney injury due to VM in Known history of hypertension plan Goals of care discussion Allergies: Coded Allergies: NO KNOWN ALLERGIES (Unverified , 05/11/24) Home Meds No Active Prescriptions or Reported Meds Current Medications Current Medications Medications (Trade) Dose Ordered Sig/Elpidio Route PRN Reason Start Time Stop Time Status Last Admin Norepinephrine Bitartrate 250 ml @ 3.75 mls/hr Q24H IV 05/29/24 20:15 05/30/24 07:46 DC 05/29/24 20:57 Aspirin 162 mg DAILY PO 05/30/24 10:00 05/30/24 07:47 DC Atorvastatin Calcium (Lipitor) 10 mg HS PO 05/30/24 22:00 Vancomycin HCl 0 ml @ 0 mls/hr UD IV 05/29/24 22:30 Piperacillin Sod/ Tazobactam Sod 100 ml @ 25 mls/hr Q12HR IV 05/29/24 23:00 05/30/24 07:45 DC 05/29/24 23:00 Albuterol (Ventolin Medneb) 2.5 mg Q6HPRN PRN NEB SHORTNESS OF BREATH 05/29/24 22:30 Ondansetron HCl (Zofran) 4 mg Q4HP PRN IV NAUSEA / VOMITING 05/29/24 22:30 Acetaminophen (Tylenol Tablet) 650 mg Q6HP PRN PO PAIN SCALE 1-3 OR TEMP>100.4 05/29/24 22:30 Nitroglycerin (Ntrostat Sublingual) 0.4 mg Q5MINP PRN SL FOR CHEST PAIN 05/29/24 22:30 Morphine Sulfate 2 mg Q30M PRN IV FOR CHEST PAIN 05/29/24 22:30 Midazolam HCl 50 ml @ 1 mls/hr Q24H IV 05/29/24 22:30 05/30/24 06:57 Ertapenem 0.5 gm/ Sodium Chloride 50 ml @ 100 mls/hr DAILY IV 05/30/24 10:00 Norepinephrine Bitartrate 32 mg/ Sodium Chloride 250 ml @ 0.938 mls/ hr Q24H IV 05/30/24 07:45 05/30/24 09:11 Sodium Chloride 1,000 ml @ 60 mls/hr [id number] IV 05/30/24 07:45 05/30/24 07:57 Aspirin 81 mg DAILY PO 05/30/24 10:00 05/30/24 07:58 Vital Signs Vital Signs Date Time Temp Pulse Resp B/P (MAP) Pulse Ox O2 Delivery O2 Flow Rate FiO2 05/30/24 08:14 56 22 124/43 (70) 97 75 05/30/24 06:45 99.1 99.1 05/30/24 05:56 Mechanical Ventilator+ 05/29/24 19:20 4 Labs/Diagnostic Data Labs Test 05/30/24 06:51 05/30/24 05:00 05/29/24 22:40 05/29/24 22:31 Range/Units Blood Gas Specimen Type Arterial Blood Gas Sample Site Left radial Blood Gas Patient Temperature 37.0 Arterial Blood Date Drawn [id number] Arterial Blood pH 7.448 7.350-7.450 Arterial Blood Partial Pressure CO2 27.2 L 35.0-48.0 mmHg Arterial Blood Partial Pressure O2 94.4 83.0-108.0 mmHg Arterial Blood HCO3 18.4 L 21.0-28.0 mmol/L Arterial Blood Oxygen Saturation 97.2 94.0-98.0 % Arterial Blood Base Excess -3.9 L -2.0-3.0 mmol/L Arterial Blood Oxyhemoglobin 96.5 94.0-98.0 % Arterial Blood Carboxyhemoglobin 0.3 L 0.5-1.5 % Arterial Blood Methemoglobin 0.4 0.0-1.5 % Bacilio Test Modified Blood Gas Total Hemoglobin 15.10 13.5-17.5 g/dL Blood Gas Set Respiration Rate 22.0 Blood Gas Modality Vent - ac FiO2 % 90.0 Blood Gas Tidal Volume 500.0 Blood Gas PEEP or CPAP 5.0 White Blood Count 18.8 H 4.4-10.8 10^3/uL Red Blood Count 4.31 L 4.5-5.90 10^6/uL Hemoglobin 14.3 13.5-17.5 g/dL Hematocrit 42.9 41.0-53.0 % Mean Corpuscular Volume 99.6 80.0-100.0 fL Mean Corpuscular Hemoglobin 33.1 H 28.0-32.0 pg Mean Corpuscular Hemoglobin Concent 33.2 32.0-36.0 g/dL Red Cell Distribution Width 15.9 H 11.8-14.3 % Platelet Count 293 140-450 10^3/uL Mean Platelet Volume 9.2 6.9-10.8 fL Neutrophils (%) (Auto) 86.3 H 37.0-80.0 % Lymphocytes (%) (Auto) 4.2 L 10.0-50.0 % Monocytes (%) (Auto) 8.0 0.0-12.0 % Eosinophils (%) (Auto) 1.1 0.0-7.0 % Basophils (%) (Auto) 0.4 0.0-2.0 % Neutrophils # (Auto) 16.2 H 1.6-8.6 10 ^3/uL Lymphocytes # (Auto) 0.8 0.4-5.4 10 ^3/uL Monocytes # (Auto) 1.5 H 0-1.3 10 ^3/uL Eosinophils # (Auto) 0.2 0-0.8 10 ^3/uL Basophils # (Auto) 0.1 0-0.2 10 ^3/uL Nucleated Red Blood Cells 0.1 % Sodium Level 146 H 136-145 mmol/L Potassium Level 3.7 3.5-5.1 mmol/L Chloride Level 113 H 98-107 mmol/L Carbon Dioxide Level 19 L 20-31 mmol/L Anion Gap 14 5-15 Blood Urea Nitrogen 89 *H 9-23 mg/dL Creatinine 5.41 H 0.700-1.30 mg/dL Glomerular Filtration Rate Calc 10 >90 mL/min BUN/Creatinine Ratio 16.5 10.0-20.0 Serum Glucose 149 H 74-106 mg/dL Calcium Level 8.3 L 8.7-10.4 mg/dL Total Bilirubin 1.2 H 0.2-1.0 mg/dL Aspartate Amino Transferase (AST) 111 H 13-40 U/L Alanine Aminotransferase (ALT) 78 H 7-40 U/L Alkaline Phosphatase 193 H 46-116 U/L B-Type Natriuretic Peptide 42.87 0-100 pg/mL Total Protein 5.6 L 5.7-8.2 g/dL Albumin 2.9 L 3.2-4.8 g/dL Random Vancomycin Level 47.7 *H 5-10 ug/mL Prothrombin Time 11.4 9.3-11.8 sec Prothrombin Time INR 1.08 0.9-1.15 Activated Partial Thromboplast Time 35.7 H 24.5-34.5 SEC Urine Color [place] H Yellow Urine Clarity Ex.turbid Clear Urine pH 5.0 5.0-9.0 Urine Specific [place] 1.025 1.001-1.035 Urine Protein 1+ H Negative Urine Ketones Negative Negative Urine Blood 1+ H Negative /uL Urine Nitrite Negative Negative Urine Bilirubin Negative Negative Urine Urobilinogen 2 H Negative mg/dL Urine Leukocyte Esterase Negative Negative /uL Urine RBC 11 0 - 3 /hpf Urine WBC <1 0 - 3 /hpf Urine Squamous Epithelial Cells Few <5 /hpf Urine Bacteria Few H None Seen /hpf Urine Hyaline Casts Many 0 - 2 /lpf Urine Glucose Trace Normal mg/dL Test 05/29/24 22:30 05/29/24 22:07 05/29/24 20:03 05/29/24 20:01 Range/Units Magnesium Level 2.6 1.6-2.6 mg/dL Creatine Kinase 118 46-171 U/L Troponin I High Sensitivity 134 *H </=54 ng/L Blood Gas Critical Value Read Back Yes Blood Gas Notified Whom Patricio kinsey md Blood Gas Notified Time [id number] Blood Gas Notified By Nanda gregorio rrt SARS-CoV-2 Antigen (Rapid) Negative NEGATIVE POC Glucose 96 70-106 mg/dl Test 05/29/24 19:38 Range/Units Lactic Acid Level 0.9 0.4-2.0 mmol/L RMAANA FINLEY RESIDENT May 30, 2024 09:28
[2024-05-30] MEDS ORDERED: ASPirin 81 mg TAB PO SCH (10:00)
[2024-05-30] MEDS ORDERED: SODIUM BICARB 50mEq/50ml Vial 50 ML in SOD CHL 0.45% 1,000 ML IV SCH (10:30)
--- NOTE | 2024-05-30 10:38 | DVHINCON2 ---
Date of service: May 30, 2024 Referring Physician Sukh Abel, nurse practitioner Reason for Consultation Acute kidney injury History of Present Illness Patient is a 83-year-old male with past medical history o CHF, CKD, CVA, Dementia, HTN, KS, and UTI'S is admitted for halfway facility for altered mental status. The patient intubated in the emergency room on the ventilator nephrology is consulted for elevated BUN and creatinine Past Medical History PAST MEDICAL HISTORY: CHF, CKF, CVA, Dementia, HTN, KS, UTI'S, Cardiogenic shock Past Surgical History Unknown Allergies: Coded Allergies: NO KNOWN ALLERGIES (Unverified , 05/11/24) Home Meds No Active Prescriptions or Reported Meds Current Medications Current Medications Medications (Trade) Dose Ordered Sig/Elpidio Route PRN Reason Start Time Stop Time Status Last Admin Norepinephrine Bitartrate 250 ml @ 3.75 mls/hr Q24H IV 05/29/24 20:15 05/30/24 07:46 DC 05/29/24 20:57 Aspirin 162 mg DAILY PO 05/30/24 10:00 05/30/24 07:47 DC Atorvastatin Calcium (Lipitor) 10 mg HS PO 05/30/24 22:00 Vancomycin HCl 0 ml @ 0 mls/hr UD IV 05/29/24 22:30 Piperacillin Sod/ Tazobactam Sod 100 ml @ 25 mls/hr Q12HR IV 05/29/24 23:00 05/30/24 07:45 DC 05/29/24 23:00 Albuterol (Ventolin Medneb) 2.5 mg Q6HPRN PRN NEB SHORTNESS OF BREATH 05/29/24 22:30 Ondansetron HCl (Zofran) 4 mg Q4HP PRN IV NAUSEA / VOMITING 05/29/24 22:30 Acetaminophen (Tylenol Tablet) 650 mg Q6HP PRN PO PAIN SCALE 1-3 OR TEMP>100.4 05/29/24 22:30 Nitroglycerin (Ntrostat Sublingual) 0.4 mg Q5MINP PRN SL FOR CHEST PAIN 05/29/24 22:30 Morphine Sulfate 2 mg Q30M PRN IV FOR CHEST PAIN 05/29/24 22:30 Midazolam HCl 50 ml @ 1 mls/hr Q24H IV 05/29/24 22:30 05/30/24 06:57 Ertapenem 0.5 gm/ Sodium Chloride 50 ml @ 100 mls/hr DAILY IV 05/30/24 10:00 05/30/24 11:00 Norepinephrine Bitartrate 32 mg/ Sodium Chloride 250 ml @ 0.938 mls/ hr Q24H IV 05/30/24 07:45 05/30/24 09:11 Sodium Chloride 1,000 ml @ 60 mls/hr [id number] IV 05/30/24 07:45 05/30/24 10:06 DC 05/30/24 07:57 Aspirin 81 mg DAILY PO 05/30/24 10:00 05/30/24 07:58 Sodium Bicarbonate 50 ml/ Sodium Chloride 1,050 ml @ 100 mls/hr [id number] IV 05/30/24 10:30 05/30/24 11:21 DC Dobutamine HCl/ Dextrose 250 ml @ 22.56 mls/ hr Q11H5M IV 05/30/24 10:30 05/30/24 11:22 Sodium Bicarbonate 50 ml/ Sodium Chloride 1,050 ml @ 60 mls/hr [id number] IV 05/30/24 11:15 UNV Meropenem 50 ml @ 17 mls/hr Q12HR IV 05/30/24 22:00 UNV Fentanyl Citrate 250 ml @ 2.5 mls/hr Q24H IV 05/30/24 11:30 UNV Review of Systems Can not be obtained H&P Exam Vital Signs/I&O Vital Sign Date Time Temp Pulse Resp B/P (MAP) Pulse Ox O2 Delivery O2 Flow Rate FiO2 05/30/24 11:27 80 20 95/47 (63) 94 60 05/30/24 06:45 99.1 99.1 05/30/24 05:56 Mechanical Ventilator+ 05/29/24 19:20 4 Intake and Output 05/29/24 05/30/24 19:00 07:00 Intake Total 1004.25 ml Output Total 400 ml Balance 604.25 ml Intake Oral 0 ml IV Total 1004.25 ml Output Urine Total 400 ml Physical Exam Patient intubated on ventilator Lungs clear to auscultation bilaterally Cardiac exam regular rate and rhythm GI soft nontender Larson catheter Extremities no clubbing cyanosis or edema Neuro patient is a sedated Labs/Diagnostic Data Labs/Diagnostic Data Laboratory Tests Test 05/30/24 11:14 05/30/24 11:10 05/30/24 06:51 05/30/24 05:00 Range/Units Urine Color Yellow Yellow Urine Clarity Turbid H Clear Urine pH 5.0 5.0-9.0 Urine Specific [place] 1.012 1.001-1.035 Urine Protein 1+ H Negative Urine Ketones Negative Negative Urine Blood 2+ H Negative /uL Urine Nitrite Negative Negative Urine Bilirubin Negative Negative Urine Urobilinogen Normal Negative mg/dL Urine Leukocyte Esterase 1+ Negative /uL Urine RBC 5 0 - 3 /hpf Urine WBC 17 0 - 3 /hpf Urine Squamous Epithelial Cells None seen <5 /hpf Urine Bacteria Few H None Seen /hpf Urine Hyaline Casts Few 0 - 2 /lpf Urine Mucus Few None Seen Urine Glucose Normal Normal mg/dL Blood Gas Specimen Type Arterial Blood Gas Sample Site Left radial Blood Gas Patient Temperature 37.0 Arterial Blood Date Drawn [id number] Arterial Blood pH 7.448 7.350-7.450 Arterial Blood Partial Pressure CO2 27.2 L 35.0-48.0 mmHg Arterial Blood Partial Pressure O2 94.4 83.0-108.0 mmHg Arterial Blood HCO3 18.4 L 21.0-28.0 mmol/L Arterial Blood Oxygen Saturation 97.2 94.0-98.0 % Arterial Blood Base Excess -3.9 L -2.0-3.0 mmol/L Arterial Blood Oxyhemoglobin 96.5 94.0-98.0 % Arterial Blood Carboxyhemoglobin 0.3 L 0.5-1.5 % Arterial Blood Methemoglobin 0.4 0.0-1.5 % Bacilio Test Modified Blood Gas Total Hemoglobin 15.10 13.5-17.5 g/dL Blood Gas Set Respiration Rate 22.0 Blood Gas Modality Vent - ac FiO2 % 90.0 Blood Gas Tidal Volume 500.0 Blood Gas PEEP or CPAP 5.0 White Blood Count 18.8 H 4.4-10.8 10^3/uL Red Blood Count 4.31 L 4.5-5.90 10^6/uL Hemoglobin 14.3 13.5-17.5 g/dL Hematocrit 42.9 41.0-53.0 % Mean Corpuscular Volume 99.6 80.0-100.0 fL Mean Corpuscular Hemoglobin 33.1 H 28.0-32.0 pg Mean Corpuscular Hemoglobin Concent 33.2 32.0-36.0 g/dL Red Cell Distribution Width 15.9 H 11.8-14.3 % Platelet Count 293 140-450 10^3/uL Mean Platelet Volume 9.2 6.9-10.8 fL Neutrophils (%) (Auto) 86.3 H 37.0-80.0 % Lymphocytes (%) (Auto) 4.2 L 10.0-50.0 % Monocytes (%) (Auto) 8.0 0.0-12.0 % Eosinophils (%) (Auto) 1.1 0.0-7.0 % Basophils (%) (Auto) 0.4 0.0-2.0 % Neutrophils # (Auto) 16.2 H 1.6-8.6 10 ^3/uL Lymphocytes # (Auto) 0.8 0.4-5.4 10 ^3/uL Monocytes # (Auto) 1.5 H 0-1.3 10 ^3/uL Eosinophils # (Auto) 0.2 0-0.8 10 ^3/uL Basophils # (Auto) 0.1 0-0.2 10 ^3/uL Nucleated Red Blood Cells 0.1 % Sodium Level 146 H 136-145 mmol/L Potassium Level 3.7 3.5-5.1 mmol/L Chloride Level 113 H 98-107 mmol/L Carbon Dioxide Level 19 L 20-31 mmol/L Anion Gap 14 5-15 Blood Urea Nitrogen 89 *H 9-23 mg/dL Creatinine 5.41 H 0.700-1.30 mg/dL Glomerular Filtration Rate Calc 10 >90 mL/min BUN/Creatinine Ratio 16.5 10.0-20.0 Serum Glucose 149 H 74-106 mg/dL Calcium Level 8.3 L 8.7-10.4 mg/dL Total Bilirubin 1.2 H 0.2-1.0 mg/dL Aspartate Amino Transferase (AST) 111 H 13-40 U/L Alanine Aminotransferase (ALT) 78 H 7-40 U/L Alkaline Phosphatase 193 H 46-116 U/L B-Type Natriuretic Peptide 42.87 0-100 pg/mL Total Protein 5.6 L 5.7-8.2 g/dL Albumin 2.9 L 3.2-4.8 g/dL Random Vancomycin Level 47.7 *H 5-10 ug/mL Test 05/30/24 00:30 05/29/24 22:40 05/29/24 22:31 05/29/24 22:30 Range/Units Blood Gas Specimen Type Arterial Blood Gas Sample Site Right radial Blood Gas Patient Temperature 37.0 Arterial Blood Date Drawn [id number] Arterial Blood pH 7.361 7.350-7.450 Arterial Blood Partial Pressure CO2 31.9 L 35.0-48.0 mmHg Arterial Blood Partial Pressure O2 96.3 83.0-108.0 mmHg Arterial Blood HCO3 17.7 L 21.0-28.0 mmol/L Arterial Blood Oxygen Saturation 97.6 94.0-98.0 % Arterial Blood Base Excess -6.5 L -2.0-3.0 mmol/L Arterial Blood Oxyhemoglobin 96.2 94.0-98.0 % Arterial Blood Carboxyhemoglobin 0.7 0.5-1.5 % Arterial Blood Methemoglobin 0.7 0.0-1.5 % Bacilio Test Modified Blood Gas Total Hemoglobin 15.80 13.5-17.5 g/dL Blood Gas Set Respiration Rate 22.0 Blood Gas Modality Vent - ac FiO2 % 100.0 Blood Gas Tidal Volume 500.0 Blood Gas PEEP or CPAP 5.0 Prothrombin Time 11.4 9.3-11.8 sec Prothrombin Time INR 1.08 0.9-1.15 Activated Partial Thromboplast Time 35.7 H 24.5-34.5 SEC Urine Color [place] H Yellow Urine Clarity Ex.turbid Clear Urine pH 5.0 5.0-9.0 Urine Specific [place] 1.025 1.001-1.035 Urine Protein 1+ H Negative Urine Ketones Negative Negative Urine Blood 1+ H Negative /uL Urine Nitrite Negative Negative Urine Bilirubin Negative Negative Urine Urobilinogen 2 H Negative mg/dL Urine Leukocyte Esterase Negative Negative /uL Urine RBC 11 0 - 3 /hpf Urine WBC <1 0 - 3 /hpf Urine Squamous Epithelial Cells Few <5 /hpf Urine Bacteria Few H None Seen /hpf Urine Hyaline Casts Many 0 - 2 /lpf Urine Glucose Trace Normal mg/dL Magnesium Level 2.6 1.6-2.6 mg/dL Creatine Kinase 118 46-171 U/L Troponin I High Sensitivity 134 *H </=54 ng/L Test 05/29/24 22:07 05/29/24 20:57 05/29/24 20:03 05/29/24 20:01 Range/Units Blood Gas Specimen Type Arterial Blood Gas Sample Site Right radial Blood Gas Patient Temperature 37.0 Arterial Blood Date Drawn [id number] Arterial Blood pH 7.224 *L 7.350-7.450 Arterial Blood Partial Pressure CO2 53.4 H 35.0-48.0 mmHg Arterial Blood Partial Pressure O2 80.4 L 83.0-108.0 mmHg Arterial Blood HCO3 21.6 21.0-28.0 mmol/L Arterial Blood Oxygen Saturation 95.4 94.0-98.0 % Arterial Blood Base Excess -6.7 L -2.0-3.0 mmol/L Arterial Blood Oxyhemoglobin 93.6 L 94.0-98.0 % Arterial Blood Carboxyhemoglobin 1.1 0.5-1.5 % Arterial Blood Methemoglobin 0.8 0.0-1.5 % Bacilio Test Modified Blood Gas Total Hemoglobin 15.50 13.5-17.5 g/dL Blood Gas Set Respiration Rate 18.0 Blood Gas Modality Vent - ac FiO2 % 100.0 Blood Gas Tidal Volume 500.0 Blood Gas PEEP or CPAP 5.0 Blood Gas Critical Value Read Back Yes Blood Gas Notified Whom Patricio kinsey md Blood Gas Notified Time [id number] Blood Gas Notified By Nanda gregorio rrt Troponin I High Sensitivity 124 *H </=54 ng/L SARS-CoV-2 Antigen (Rapid) Negative NEGATIVE POC Glucose 96 70-106 mg/dl Test 05/29/24 19:38 Range/Units White Blood Count 19.0 H 4.4-10.8 10^3/uL Red Blood Count 4.53 4.5-5.90 10^6/uL Hemoglobin 15.1 13.5-17.5 g/dL Hematocrit 46.3 41.0-53.0 % Mean Corpuscular Volume 102.4 H 80.0-100.0 fL Mean Corpuscular Hemoglobin 33.3 H 28.0-32.0 pg Mean Corpuscular Hemoglobin Concent 32.6 32.0-36.0 g/dL Red Cell Distribution Width 16.3 H 11.8-14.3 % Platelet Count 336 140-450 10^3/uL Mean Platelet Volume 9.7 6.9-10.8 fL Neutrophils (%) (Auto) 85.1 H 37.0-80.0 % Lymphocytes (%) (Auto) 5.3 L 10.0-50.0 % Monocytes (%) (Auto) 9.0 0.0-12.0 % Eosinophils (%) (Auto) 0.4 0.0-7.0 % Basophils (%) (Auto) 0.2 0.0-2.0 % Neutrophils # (Auto) 16.2 H 1.6-8.6 10 ^3/uL Lymphocytes # (Auto) 1.0 0.4-5.4 10 ^3/uL Monocytes # (Auto) 1.7 H 0-1.3 10 ^3/uL Eosinophils # (Auto) 0.1 0-0.8 10 ^3/uL Basophils # (Auto) 0 0-0.2 10 ^3/uL Nucleated Red Blood Cells 0.1 % Sodium Level 150 H 136-145 mmol/L Potassium Level 5.3 H 3.5-5.1 mmol/L Chloride Level 112 H 98-107 mmol/L Carbon Dioxide Level 26 20-31 mmol/L Anion Gap 12 5-15 Blood Urea Nitrogen 89 *H 9-23 mg/dL Creatinine 6.42 H 0.700-1.30 mg/dL Glomerular Filtration Rate Calc 8 >90 mL/min BUN/Creatinine Ratio 13.9 10.0-20.0 Serum Glucose 106 74-106 mg/dL Lactic Acid Level 0.9 0.4-2.0 mmol/L Calcium Level 8.7 8.7-10.4 mg/dL Total Bilirubin 0.9 0.2-1.0 mg/dL Aspartate Amino Transferase (AST) 127 H 13-40 U/L Alanine Aminotransferase (ALT) 90 H 7-40 U/L Alkaline Phosphatase 208 H 46-116 U/L Troponin I High Sensitivity 113 *H </=54 ng/L Total Protein 6.5 5.7-8.2 g/dL Albumin 3.4 3.2-4.8 g/dL Assessment Acute kidney injury superimposed Chronic Kidney Disease secondary hemodynamic mediated, creatinine was 1.2 on 05/21/2024 Vancomycin nephrotoxicity Acute respiratory failure, intubated on ventilator Hypernatremia due to dehydration Metabolic acidosis Dilated cardiomyopathy Diabetes mellitus type 2 NSTEMI Dementia Hypoalbuminemia Leukocytosis Recommendations Closely monitor fluid and electrolytes Avoid nephrotoxic medications Larson catheter Strict I&Os IVF half NS with 50 mEq sodium bicarb at 100 cc/hour Discontinue vancomycin Check urine electrolytes and urine protein excretion Check kidney ultrasound IV dobutamine Insulin SS Cardiology consult We will continue to follow Patient seen and examined by myself ICU bed 6. Critical care time 35 minutes. I discussed my plan of care with the primary nurse at the bedside I would like to thank Sukh for the consult, will follow up Plan discussed with: Other (Nurse) INDERJIT WESTBROOK MD May 30, 2024 10:38
[2024-05-30] MEDS: DOBUTamine 1000MCG/ML 250 ML IV ONE (10:39)
[2024-05-30] MEDS: ERTAPENEM SOD INJ 0.5 GM in SODIUM CHL 0.9% 50 ML IV SCH (11:00)
--- NOTE | 2024-05-30 11:07 | DVH ---
RENAL ULTRASOUND CLINICAL HISTORY: lb TECHNIQUE: Multiple ultrasound images of the retroperitoneum were obtained. COMPARISON: US KIDNEY on DOS: 05/12/24 FINDINGS: The right kidney measures 10.4 cm in length. The left kidney measures 11.5 cm. The kidneys demonstrat e appropriate echotexture. There is no hydronephrosis. There is a 6 mm right lower pole renal calcul us. There is a 2.1 cm simple cyst in the lower pole of the left kidney. IMPRESSION: 1. 6 mm nonobstructive right lower pole renal calculus. 2. 2.1 cm simple appearing left lower pole renal cyst. HS:Y
[2024-05-30] MEDS: SODIUM BICARB 50mEq/50ml Vial 50 ML in SOD CHL 0.45% 1,000 ML IV SCH (11:15)
[2024-05-30] MEDS: MEROPENEM 1GM IVPB 50 ML IV ONE (11:15)
[2024-05-30] MEDS: DOBUTamine 1000MCG/ML 250 ML IV SCH (11:22)
[2024-05-30 11:37] LABS: Urine Bacteria FEW /hpf (None Seen); Urine Blood 2+ /uL (Negative); Urine Clarity Turbid (Clear); Urine Color Yellow (Yellow); Urine Hyaline Cast FEW /lpf (0 - 2); Urine Mucus FEW (None Seen); Urine Protein, UAD 1+ (Negative); Urine Specific Gravity 1.012 (1.001-1.035); Urine Urobilinogen Normal (Negative); Urine WBC 17 /hpf (0 - 3)
[2024-05-30 11:45] LABS: Protein, Urine 80.9 mg/dL (1-14)
[2024-05-30 11:47] LABS: Magnesium 2.4 mg/dL (1.6-2.6)
[2024-05-30 11:47] LABS: Creatinine, Urine 77.37 mg/dL (30.0-125.0); Urine Protein/Creatinine Ratio 1.05
[2024-05-30 11:49] LABS: Phosphorus 4.2 mg/dL (2.4-5.1)
--- NOTE | 2024-05-30 12:47 | DVHINCON2 ---
Date of service: May 30, 2024 History of Present Illness 83 yo M sick patient, recent CA, nstemi severe c hf intubated last month readmitted for AMS and in shock. bp is low on levophed. HR was low per RN and started on dobutamine per residents. Past Medical History reviewed Allergies: Coded Allergies: NO KNOWN ALLERGIES (Unverified , 05/11/24) Home Meds No Active Prescriptions or Reported Meds Current Medications Current Medications Medications (Trade) Dose Ordered Sig/Elpidio Route PRN Reason Start Time Stop Time Status Last Admin Norepinephrine Bitartrate 250 ml @ 3.75 mls/hr Q24H IV 05/29/24 20:15 05/30/24 07:46 DC 05/29/24 20:57 Aspirin 162 mg DAILY PO 05/30/24 10:00 05/30/24 07:47 DC Atorvastatin Calcium (Lipitor) 10 mg HS PO 05/30/24 22:00 Vancomycin HCl 0 ml @ 0 mls/hr UD IV 05/29/24 22:30 Piperacillin Sod/ Tazobactam Sod 100 ml @ 25 mls/hr Q12HR IV 05/29/24 23:00 05/30/24 07:45 DC 05/29/24 23:00 Albuterol (Ventolin Medneb) 2.5 mg Q6HPRN PRN NEB SHORTNESS OF BREATH 05/29/24 22:30 Ondansetron HCl (Zofran) 4 mg Q4HP PRN IV NAUSEA / VOMITING 05/29/24 22:30 Acetaminophen (Tylenol Tablet) 650 mg Q6HP PRN PO PAIN SCALE 1-3 OR TEMP>100.4 05/29/24 22:30 Nitroglycerin (Ntrostat Sublingual) 0.4 mg Q5MINP PRN SL FOR CHEST PAIN 05/29/24 22:30 Morphine Sulfate 2 mg Q30M PRN IV FOR CHEST PAIN 05/29/24 22:30 Midazolam HCl 50 ml @ 1 mls/hr Q24H IV 05/29/24 22:30 05/30/24 06:57 Ertapenem 0.5 gm/ Sodium Chloride 50 ml @ 100 mls/hr DAILY IV 05/30/24 10:00 05/30/24 12:02 DC 05/30/24 11:00 Norepinephrine Bitartrate 32 mg/ Sodium Chloride 250 ml @ 0.938 mls/ hr Q24H IV 05/30/24 07:45 05/30/24 09:11 Sodium Chloride 1,000 ml @ 60 mls/hr [id number] IV 05/30/24 07:45 05/30/24 10:06 DC 05/30/24 07:57 Aspirin 81 mg DAILY PO 05/30/24 10:00 05/30/24 07:58 Sodium Bicarbonate 50 ml/ Sodium Chloride 1,050 ml @ 100 mls/hr [id number] IV 05/30/24 10:30 05/30/24 11:21 DC Dobutamine HCl/ Dextrose 250 ml @ 22.56 mls/ hr Q11H5M IV 05/30/24 10:30 05/30/24 11:22 Sodium Bicarbonate 50 ml/ Sodium Chloride 1,050 ml @ 60 mls/hr [id number] IV 05/30/24 11:15 05/30/24 11:15 Meropenem 50 ml @ 17 mls/hr Q12HR IV 05/30/24 22:00 Fentanyl Citrate 250 ml @ 2.5 mls/hr Q24H IV 05/30/24 11:30 Review of Systems not obtained Vital Signs Vital Signs Date Time Temp Pulse Resp B/P (MAP) Pulse Ox O2 Delivery O2 Flow Rate FiO2 05/30/24 11:27 80 20 95/47 (63) 94 60 05/30/24 06:45 99.1 99.1 05/30/24 05:56 Mechanical Ventilator+ 05/29/24 19:20 4 Physical Exam nad s1 s2 rrr diffuse rhonchi abd soft nt/nd Labs/Diagnostic Data Labs Test 05/30/24 11:14 05/30/24 11:10 05/30/24 06:51 05/30/24 05:00 Range/Units Urine Color Yellow Yellow Urine Clarity Turbid H Clear Urine pH 5.0 5.0-9.0 Urine Specific [place] 1.012 1.001-1.035 Urine Protein 1+ H Negative Urine Ketones Negative Negative Urine Blood 2+ H Negative /uL Urine Nitrite Negative Negative Urine Bilirubin Negative Negative Urine Urobilinogen Normal Negative mg/dL Urine Leukocyte Esterase 1+ Negative /uL Urine RBC 5 0 - 3 /hpf Urine WBC 17 0 - 3 /hpf Urine Squamous Epithelial Cells None seen <5 /hpf Urine Bacteria Few H None Seen /hpf Urine Hyaline Casts Few 0 - 2 /lpf Urine Mucus Few None Seen Urine Creatinine 77.37 30.0-125.0 mg/dL Urine Protein/Creatinine Ratio 1.05 Urine Sodium 64 40-220 mmol/L Urine Glucose Normal Normal mg/dL Urine Total Protein 80.9 H 1-14 mg/dL Phosphorus Level 4.2 2.4-5.1 mg/dL Magnesium Level 2.4 1.6-2.6 mg/dL Vitamin D 25-Hydroxy 30.1 30.0-100 ng/mL Parathyroid Hormone (Intact) 403.8 H 18.4-80.1 pg/mL Blood Gas Specimen Type Arterial Blood Gas Sample Site Left radial Blood Gas Patient Temperature 37.0 Arterial Blood Date Drawn [id number] Arterial Blood pH 7.448 7.350-7.450 Arterial Blood Partial Pressure CO2 27.2 L 35.0-48.0 mmHg Arterial Blood Partial Pressure O2 94.4 83.0-108.0 mmHg Arterial Blood HCO3 18.4 L 21.0-28.0 mmol/L Arterial Blood Oxygen Saturation 97.2 94.0-98.0 % Arterial Blood Base Excess -3.9 L -2.0-3.0 mmol/L Arterial Blood Oxyhemoglobin 96.5 94.0-98.0 % Arterial Blood Carboxyhemoglobin 0.3 L 0.5-1.5 % Arterial Blood Methemoglobin 0.4 0.0-1.5 % Bacilio Test Modified Blood Gas Total Hemoglobin 15.10 13.5-17.5 g/dL Blood Gas Set Respiration Rate 22.0 Blood Gas Modality Vent - ac FiO2 % 90.0 Blood Gas Tidal Volume 500.0 Blood Gas PEEP or CPAP 5.0 White Blood Count 18.8 H 4.4-10.8 10^3/uL Red Blood Count 4.31 L 4.5-5.90 10^6/uL Hemoglobin 14.3 13.5-17.5 g/dL Hematocrit 42.9 41.0-53.0 % Mean Corpuscular Volume 99.6 80.0-100.0 fL Mean Corpuscular Hemoglobin 33.1 H 28.0-32.0 pg Mean Corpuscular Hemoglobin Concent 33.2 32.0-36.0 g/dL Red Cell Distribution Width 15.9 H 11.8-14.3 % Platelet Count 293 140-450 10^3/uL Mean Platelet Volume 9.2 6.9-10.8 fL Neutrophils (%) (Auto) 86.3 H 37.0-80.0 % Lymphocytes (%) (Auto) 4.2 L 10.0-50.0 % Monocytes (%) (Auto) 8.0 0.0-12.0 % Eosinophils (%) (Auto) 1.1 0.0-7.0 % Basophils (%) (Auto) 0.4 0.0-2.0 % Neutrophils # (Auto) 16.2 H 1.6-8.6 10 ^3/uL Lymphocytes # (Auto) 0.8 0.4-5.4 10 ^3/uL Monocytes # (Auto) 1.5 H 0-1.3 10 ^3/uL Eosinophils # (Auto) 0.2 0-0.8 10 ^3/uL Basophils # (Auto) 0.1 0-0.2 10 ^3/uL Nucleated Red Blood Cells 0.1 % Sodium Level 146 H 136-145 mmol/L Potassium Level 3.7 3.5-5.1 mmol/L Chloride Level 113 H 98-107 mmol/L Carbon Dioxide Level 19 L 20-31 mmol/L Anion Gap 14 5-15 Blood Urea Nitrogen 89 *H 9-23 mg/dL Creatinine 5.41 H 0.700-1.30 mg/dL Glomerular Filtration Rate Calc 10 >90 mL/min BUN/Creatinine Ratio 16.5 10.0-20.0 Serum Glucose 149 H 74-106 mg/dL Calcium Level 8.3 L 8.7-10.4 mg/dL Total Bilirubin 1.2 H 0.2-1.0 mg/dL Aspartate Amino Transferase (AST) 111 H 13-40 U/L Alanine Aminotransferase (ALT) 78 H 7-40 U/L Alkaline Phosphatase 193 H 46-116 U/L B-Type Natriuretic Peptide 42.87 0-100 pg/mL Total Protein 5.6 L 5.7-8.2 g/dL Albumin 2.9 L 3.2-4.8 g/dL Random Vancomycin Level 47.7 *H 5-10 ug/mL Test 05/29/24 22:40 05/29/24 22:30 05/29/24 22:07 05/29/24 20:03 Range/Units Prothrombin Time 11.4 9.3-11.8 sec Prothrombin Time INR 1.08 0.9-1.15 Activated Partial Thromboplast Time 35.7 H 24.5-34.5 SEC Creatine Kinase 118 46-171 U/L Troponin I High Sensitivity 134 *H </=54 ng/L Blood Gas Critical Value Read Back Yes Blood Gas Notified Whom Patricio kinsey md Blood Gas Notified Time [id number] Blood Gas Notified By Nanda gregorio busboy SARS-CoV-2 Antigen (Rapid) Negative NEGATIVE Test 05/29/24 20:01 05/29/24 19:38 Range/Units POC Glucose 96 70-106 mg/dl Lactic Acid Level 0.9 0.4-2.0 mmol/L Assessment cardiogenic shock hypotension AMS recent nstemi renal failure multiorgan failure Plan/Recommendation agree with low dose dobutamine diuretics as needed good UOP cont levophed for low bp asa, statin supportive care very poor prognosis at this time short/ half-way 40 mins critical care time spent Plan discussed with: Patient, Other (rn) ASHLEIGH MANZO MD May 30, 2024 12:47
--- NOTE | 2024-05-30 13:32 | DVHPNRES ---
Progress Note Date Seen: May 30, 2024 Resident Creating Document: CLAIRE GALEANO RESIDENT Has the PT tested + for MRSA If YES, has PT been informed?: No Medical Necessity Reason Pt with a Central, PICC or Fol: Yes Subjective Review of Systems This is an 83-year-old male with past medical history of dementia, CHF (HFrEF 5%), dyslipidemia who presented to the ED for evaluation of altered level of consciousness. Patient was recently discharged from our facility due to cardiogenic shock and UTI secondary to E coli ESBL which was discharged on IV ertapenem. The patient was discharged to [facility] for rehab. It seems that staff on the sniff stated that the patient was getting more confused and altered in the past two days before coming to the ED. on arrival to the ED patient was lethargic with a blood pressure in the 70s, the patient was emergently intubated to secure airway and was admitted for further assessment and management to the ICU. Patient seen and examined at bedside. Patient is currently sedated on midazolam, currently on mechanical ventilator on the following parameters: VT 500, RR 22, FiO2 75%, peep five, saturating 97%. We will start the patient on fentanyl as well and try to come down on the midazolam based also on kidney function. We will also start the patient on dobutamine drip at 2.5 since the patient has an LVEF of 5% with a heart rate in the 47s. We will decrease FiO2 to 60% and respiratory rate to 20, we also readjusted tidal volume to 450. All these changed based on morning ABG which was showing a pH of 7.44, pCO2 of 27.2, HC03 of 18.4 and PaO2 of 94.4. Ordered pancultures but while results come back we will change ertapenem to meropenem for more broad-spectrum coverage. So we will keep the patient at this time on vancomycin and meropenem ROS unable to obtain due to patient's current status. Intubation Objective vital signs Vital Sign Date Time Temp Pulse Resp B/P (MAP) Pulse Ox O2 Delivery O2 Flow Rate FiO2 05/30/24 11:27 80 20 95/47 (63) 94 60 05/30/24 06:45 99.1 99.1 05/30/24 05:56 Mechanical Ventilator+ 05/29/24 19:20 4 Total Intake and Output 05/29/24 05/29/24 05/30/24 15:00 23:00 07:00 Intake Total 1004.25 ml Output Total 400 ml Balance 604.25 ml medications Current Medications Medications Dose Ordered Sig/Elpidio Route Start Time Stop Time Status Last Admin Dose Admin Atorvastatin Calcium 10 mg HS PO 05/30/24 22:00 Vancomycin HCl 0 ml @ 0 mls/hr UD IV 05/29/24 22:30 Albuterol 2.5 mg Q6HPRN PRN NEB 05/29/24 22:30 Ondansetron HCl 4 mg Q4HP PRN IV 05/29/24 22:30 Acetaminophen 650 mg Q6HP PRN PO 05/29/24 22:30 Nitroglycerin 0.4 mg Q5MINP PRN SL 05/29/24 22:30 Morphine Sulfate 2 mg Q30M PRN IV 05/29/24 22:30 Midazolam HCl 50 ml @ 1 mls/hr Q24H IV 05/29/24 22:30 05/30/24 06:57 7 MLS/HR Norepinephrine Bitartrate 32 mg/ Sodium Chloride 250 ml @ 0.938 mls/ hr Q24H IV 05/30/24 07:45 05/30/24 09:11 4.688 MLS/HR Aspirin 81 mg DAILY PO 05/30/24 10:00 05/30/24 07:58 81 MG Dobutamine HCl/ Dextrose 250 ml @ 22.56 mls/ hr Q11H5M IV 05/30/24 10:30 05/30/24 11:22 11.28 MLS/HR Sodium Bicarbonate 50 ml/ Sodium Chloride 1,050 ml @ 60 mls/hr [id number] IV 05/30/24 11:15 05/30/24 11:15 60 MLS/HR Meropenem 50 ml @ 17 mls/hr Q12HR IV 05/30/24 22:00 Fentanyl Citrate 250 ml @ 2.5 mls/hr Q24H IV 05/30/24 11:30 Examination Physical Examination General: Patient sedated on [facility] vent: VT: 450, RR 20, FIO2 60%, sat 97%. HEENT: Normocephalic, atraumatic, moist mucous membranes Respiratory/pulmonary: Very mild crackles in bilateral lung bases otherwise grossly clear. No wheezes at this time. Cardiovascular: Bradycardic regular heart sounds S1 and S2 with no associated murmurs Abdomen: Abdomen nondistended, there is no pain to palpation in any of the abdominal quadrants, no palpable masses. Extremities: There is no peripheral edema present at the lower extremities. Peripheral Pulses: 3+ Radial (R). 3+ Radial (L). 3+ Dorsalis pedis (R). 3+ Dorsalis pedis(L) Skin: No rashes or pruritus, there is no sacral edema present at this time. Neurological: Sedated, RASS -3 laboratory and microbiology Laboratory Tests 05/30/24 05:00 Test 05/30/24 05:00 Range/Units Serum Glucose 149 H 74-106 mg/dL Problem List/Assessment/Plan Problem List/Assessment/Plan Assessment/Plan Neurology Acute toxic/metabolic encephalopathy likely uremic/sepsis -patient presented with altered level of consciousness and confusion -ordered ammonia levels Hx of Dementia Sedation -On midazolam -Start fentanyl Cardiology Acute systolic heart failure (HFrEF 5%) -last echocardiogram showed an LVEF of 5-7% -start dobutamine drip at 2.5 -currently on Levophed at 8 Cardiogenic shock -currently on dobutamine drip - requiring vasopressor(Levophed) NSTEMI likely type II -due to above -trend troponins Bradyarrhythmia -HR occasional on 45-47 -on dobutamin drip Respiratory Acute hypoxic respiratory failure likely due to ARDS/CHF exacerbation -initial x-ray was grossly clear, very mild congestion -currently on mechanical ventilator: VT 450, RR20, FIO2 60%, PEEP 5.0 -switch ertapenem to meropenem -continue IV vancomycin -ordered sputum cultures and blood cultures Gastroenterology/urology Acute transaminitis likely due to sepsis -AST 111, ALT 78 Sepsis due to UTI -last time patient had UTI growing E coli ESBL and was discharged on ertapenem IV -we will switch from ertapenem to meropenem until pancultures are back Nephrology AB on CKD likely due to septic shock -creatinine was 5.41 and BUN 89 -on bicarbonate drip -nephrology on board -monitor kidney function Endocrinology Hyperglycemia -last hemoglobin A1c was normal range -Monitor glucose levels Lines -right subclavian triple-lumen placed on -Larson catheter placed on Goals of care discussed with medical team for >23min Critical time spent >81min Plan discussed with Dr. Tracey Plan discussed with: Other My Orders My Orders Orders - CLAIER GALEANO Procedure Category Date Status Time Dobutamine 1000mcg/Ml PHA 05/30/24 In Process (Dobutrex) 10:30 Ventilator Orders RT 05/30/24 Transmitted 10:20 Communication Order ORDERS 05/30/24 Transmitted 13:15 Date of Service: May 30, 2024 Billing Provider: SHARMIN PETERS MD Common Visit Codes: [id number] CARE 30-74 MIN, [id number] CARE-EACH +30MIN CLAIRE GALEANO RESIDENT May 30, 2024 13:32 SHARMIN PETERS MD May 31, 2024 12:13
[2024-05-30] MEDS: fentaNYL Drip 2500mCg/250mlNS 250 ML IV SCH (18:41)
[2024-05-30] MEDS: MEROPENEM 500MG IVPB 50 ML IV SCH (21:53)
[2024-05-30] MEDS: ATORVASTATIN 20 MG TAB PO SCH (21:59)
[2024-05-31] VITALS (117 sets, daily range): BP systolic 61–150; BP diastolic 30–66; PULSE 52–84; RESP 20–21; TEMP 97.3–99; O2SAT 88–98
[2024-05-31 03:44] LABS: Base Excess -2.5 mmol/L (-2.0-3.0)
--- NOTE | 2024-05-31 04:49 | DVH ---
CHEST RADIOGRAPH Indication:reevaluate Technique: Single frontal view of the chest was obtained COMPARISON: XY CHEST PORTABLE on DOS: 05/29/24, XY CHEST XRAY 1 VIEW on DOS: 05/20/24, XY CHEST XRAY 1 VIEW on DOS: 05/18/24 FINDINGS: Lines and Tubes: Endotracheal tube is low in position projecting towards the right mainstem bronchus. Enteric catheter and right central venous catheter in satisfactory position. Lungs: Multifocal airspace disease. Pleura: No effusion. No pneumothorax. Cardiomediastinal contours: Unremarkable Bones: Unremarkable IMPRESSION: Endotracheal tube is low in position projecting towards the right mainstem bronchus. Recommend retrac tion by 2 cm.
--- NOTE | 2024-05-31 06:53 | DVHPNRES ---
Progress Note Date Seen: May 31, 2024 Resident Creating Document: CLAIRE GALEANO RESIDENT Has the PT tested + for MRSA If YES, has PT been informed?: No Medical Necessity Reason Pt with a Central, PICC or Fol: Yes Subjective Review of Systems This is an 83-year-old male with past medical history of dementia, CHF (HFrEF 5%), dyslipidemia who presented to the ED for evaluation of altered level of consciousness. Patient was recently discharged from our facility due to cardiogenic shock and UTI secondary to E coli ESBL which was discharged on IV ertapenem. The patient was discharged to [facility] for rehab. It seems that staff on the sniff stated that the patient was getting more confused and altered in the past two days before coming to the ED. on arrival to the ED patient was lethargic with a blood pressure in the 70s, the patient was emergently intubated to secure airway and was admitted for further assessment and management to the ICU. Patient seen and examined at bedside. Overnight patient has loose stools x3 which was sent for C diff. dosage of Levophed also had to be increased currently at 23 micrograms/minute. This morning WBC came back elevated at 23.4. BUN and creatinine are slightly improving at 88 and 2.91 respectively. The patient is currently sedated on fentanyl 25 microgram/hr. Currently on mechanical ventilator on the following parameters: VT 450, RR 20, FiO2 60%, peep five, saturating 95%. We ordered pancultures from which blood culture is not growing any microorganism at this time, urine culture neither and sputum culture is possibly growing Gram-positive cocci in clusters and chains. We will keep the patient on IV meropenem until official reports are back. We will start the patient on Jevity at 30 cc/hour. We will discontinue dobutamine drip at this time and started the patient on linezolid. We will start Nepro for enteral nutrition at 30 cc/hour. ROS unable to obtain due to patient's current status, intubation. Objective vital signs Vital Sign Date Time Temp Pulse Resp B/P (MAP) Pulse Ox O2 Delivery O2 Flow Rate FiO2 05/31/24 06:45 98.8 70 20 111/49 (69) 97 209.8 05/31/24 06:00 60 05/31/24 05:35 Mechanical Ventilator+ 05/29/24 19:20 4 Total Intake and Output 05/30/24 05/30/24 05/31/24 15:00 23:00 07:00 Intake Total 603.558 ml 647.736 ml 619.335 ml Output Total 1100 ml 650 ml Balance 603.558 ml -452.264 ml -30.665 ml medications Current Medications Medications Dose Ordered Sig/Elpidio Route Start Time Stop Time Status Last Admin Dose Admin Atorvastatin Calcium 10 mg HS PO 05/30/24 22:00 05/30/24 21:59 10 MG Albuterol 2.5 mg Q6HPRN PRN NEB 05/29/24 22:30 Ondansetron HCl 4 mg Q4HP PRN IV 05/29/24 22:30 Acetaminophen 650 mg Q6HP PRN PO 05/29/24 22:30 Nitroglycerin 0.4 mg Q5MINP PRN SL 05/29/24 22:30 Morphine Sulfate 2 mg Q30M PRN IV 05/29/24 22:30 Midazolam HCl 50 ml @ 1 mls/hr Q24H IV 05/29/24 22:30 05/30/24 15:27 5 MLS/HR Aspirin 81 mg DAILY PO 05/30/24 10:00 05/30/24 07:58 81 MG Dobutamine HCl/ Dextrose 250 ml @ 22.56 mls/ hr Q11H5M IV 05/30/24 10:30 05/30/24 11:22 11.28 MLS/HR Sodium Bicarbonate 50 ml/ Sodium Chloride 1,050 ml @ 60 mls/hr [id number] IV 05/30/24 11:15 05/31/24 05:48 60 MLS/HR Meropenem 50 ml @ 17 mls/hr Q12HR IV 05/30/24 22:00 05/30/24 21:53 17 MLS/HR Fentanyl Citrate 250 ml @ 2.5 mls/hr Q24H IV 05/30/24 11:30 05/30/24 18:41 2.5 MLS/HR Norepinephrine Bitartrate 32 mg/ Sodium Chloride 250 ml @ 0.469 mls/ hr Q24H IV 05/30/24 19:45 05/31/24 05:14 10.781 MLS/HR Examination Physical Examination General: Patient sedated on mech vent: VT: 450, RR 20, FIO2 60%, sat 95%. HEENT: Normocephalic, atraumatic, moist mucous membranes Respiratory/pulmonary: Bilat lungs sounds grossly clear at this time. No wheezes. Cardiovascular: Regular heart sounds S1 and S2 with no associated murmurs Abdomen: Abdomen nondistended, there is no pain to palpation in any of the abdominal quadrants, no palpable masses. Extremities: There is no peripheral edema present at the lower extremities. Peripheral Pulses: 3+ Radial (R). 3+ Radial (L). 3+ Dorsalis pedis (R). 3+ Dorsalis pedis(L) Skin: No rashes or pruritus, there is no sacral edema present at this time. Neurological: Sedated, RASS -3 laboratory and microbiology Laboratory Tests 05/30/24 05:00 Test 05/30/24 05:00 Range/Units Serum Glucose 149 H 74-106 mg/dL Microbiology Date/Time Source Procedure Growth Status 05/30/24 03:15 Nose MRSA Screen - Final Complete 05/29/24 21:15 Sputum Gram Stain - Final Resulted 05/29/24 21:15 Sputum Respiratory Culture - Preliminary Resulted 05/29/24 19:38 Blood Blood Culture - Preliminary NO GROWTH AFTER 24 HOURS OF INCUBATION. Resulted Problem List/Assessment/Plan Problem List/Assessment/Plan Assessment/Plan Neurology Acute toxic/metabolic encephalopathy likely uremic/sepsis -patient presented with altered level of consciousness and confusion -ordered ammonia levels Hx of Dementia Sedation -On midazolam -Start fentanyl Cardiology Acute systolic heart failure (HFrEF 5%) -last echocardiogram showed an LVEF of 5-7% -Discontinue dobutamine drip -currently on Levophed at 20 Cardiogenic shock -Discontinue dobutamine drip -requiring vasopressor(Levophed) NSTEMI likely type II -due to above -trend troponins Bradyarrhythmia -HR occasional on 45-47 -Discontinue dobutamine drip Respiratory Acute hypoxic respiratory failure likely due to ARDS/CHF exacerbation -initial x-ray was grossly clear, very mild congestion -currently on mechanical ventilator: VT 450, RR20, FIO2 60%, PEEP 5.0 -switch ertapenem to meropenem -continue IV vancomycin -ordered sputum cultures and blood cultures Gastroenterology/urology Acute transaminitis likely due to sepsis -AST 111, ALT 78 Sepsis due to UTI -last time patient had UTI growing E coli ESBL and was discharged on ertapenem IV -we will switch from ertapenem to meropenem until pancultures are back Nephrology AB on CKD likely due to septic shock -creatinine was 2.91 and BUN 88 -on bicarbonate drip -nephrology on board -monitor kidney function Endocrinology Hyperglycemia -last hemoglobin A1c was normal range -Monitor glucose levels Lines -right subclavian triple-lumen placed on -Larson catheter placed on Goals of care discussed with steve jensen via phone for >23min Critical time spent >64min Plan discussed with Dr. Peters Plan discussed with: Daughter My Orders My Orders Orders - CLAIRE GALEANO Procedure Category Date Status Time Dobutamine 1000mcg/Ml PHA 05/30/24 In Process (Dobutrex) 10:30 Ventilator Orders RT 05/30/24 Transmitted 10:20 Communication Order ORDERS 05/30/24 Transmitted 13:15 Ammonia LAB 05/31/24 Logged 04:00 Clostridium Difficile TY 05/30/24 In Process Toxin 16:35 Complete Blood Count LAB 05/31/24 Logged 04:00 Comprehensive LAB 05/31/24 Logged Metabolic Panel 04:00 Magnesium LAB 05/31/24 Logged 04:00 Chest Xray 1 View XY 05/31/24 Resulted 04:00 Abg W/ Co-Ox RT 05/31/24 Logged 05:20 Dietary Evaluation Review Comments: 1) If GI is preferred route consider Jevity 1.2 @ 70 ml/hr goal rate as tolerated 2) If pt remains NPO >7days consider TPN to meet at least 75% of estimated needs 3) Advance pt diet to a Renal Specific K2,low phos,MILLER,2gmNa,50gPro diet 3) Continue current plan of care Expected Outcomes/Goals: 1) Pt to receive adequate nutrition support with 72 hrs of NPO status 2) Pt diet to advance 3) F/U in 2-3 days Date of Service: May 31, 2024 Billing Provider: SHARMIN PETERS MD Common Visit Codes: [id number] CARE 30-74 MIN CLAIRE GALEANO May 31, 2024 06:53 SHARMIN PETERS MD Jun 03, 2024 15:30
[2024-05-31 07:25] LABS: Base Excess -1.8 mmol/L (-2.0-3.0)
[2024-05-31 08:40] LABS: Hepatitis B Surface Antigen Negative (Negative)
[2024-05-31] MEDS ORDERED: Jevity 1.2 Cal/Fiber 1 Liter GT SCH (08:45)
[2024-05-31 09:00] LABS: Basophils # (auto) 0 10 ^3/uL (0-0.2); Basophils % (auto) 0.2 % (0.0-2.0); Eosinophils # (auto) 0.4 10 ^3/uL (0-0.8); Eosinophils % (auto) 1.9 % (0.0-7.0); Hematocrit 43.7 % (41.0-53.0); Hemoglobin 14.3 g/dL (13.5-17.5); Lymphocytes # (auto) 0.7 10 ^3/uL (0.4-5.4); Lymphocytes % (auto) 2.8 % (10.0-50.0); Mean Corpuscular Hemoglobin 32.4 pg (28.0-32.0); Mean Corpuscular Hgb Conc. 32.6 g/dL (32.0-36.0); Mean Corpuscular Volume 99.3 fL (80.0-100.0); Monocytes # (auto) 1.4 10 ^3/uL (0-1.3); Neutrophils # (auto) 20.9 10 ^3/uL (1.6-8.6); Neutrophils % (auto) 89.1 % (37.0-80.0); Platelet Count (auto) 258 10^3/uL (140-450); Red Cell Distribution Width 16.3 % (11.8-14.3); White Blood Cell 23.4 10^3/uL (4.4-10.8)
[2024-05-31 09:03] LABS: Hepatitis C Antibody Negative (Negative)
[2024-05-31 09:18] LABS: Alanine Aminotransferase 68 U/L (7-40); Albumin 2.6 g/dL (3.2-4.8); Alkaline Phosphatase 189 U/L (46-116); Anion Gap 10 (5-15); Aspartate Aminotransferase 81 U/L (13-40); BUN/Creatinine Ratio 30.2 (10.0-20.0); Calcium 8.2 mg/dL (8.7-10.4); Carbon Dioxide 26 mmol/L (20-31); Chloride 115 mmol/L (98-107); Glucose 146 mg/dL (74-106); Magnesium 2.2 mg/dL (1.6-2.6); Total Protein 4.9 g/dL (5.7-8.2)
[2024-05-31 09:26] LABS: Sodium 151 mmol/L (136-145)
[2024-05-31 09:28] LABS: Blood Urea Nitrogen 88 mg/dL (9-23)
[2024-05-31] MEDS ORDERED: VANCOMYCIN PER PHARMACY 0 MG IV SCH (12:15)
[2024-05-31] MEDS ORDERED: VANCOMYCIN 1GM/200ML PREMIX 200 ML IV ONE (13:15)
[2024-05-31] MEDS: SODIUM BICARB 50mEq/50ml Vial 50 ML in SOD CHL 0.45% 1,000 ML IV SCH (13:42)
--- NOTE | 2024-05-31 13:50 | DVHPN2 ---
Progress Note Date Seen: May 31, 2024 Has the PT tested + for MRSA If YES, has PT been informed?: No Medical Necessity Reason Pt with a Central, PICC or Fol: Yes Subjective Review of Systems: RESPIRATORY:Abnormal Other Systems: Patient seen and examined by myself today in follow-up Patient remained intubated on ventilator Objective vital signs Vital Sign Date Time Temp Pulse Resp B/P (MAP) Pulse Ox O2 Delivery O2 Flow Rate FiO2 05/31/24 13:15 98.4 56 20 121/52 (75) 209.1 05/31/24 13:00 95 05/31/24 12:23 60 05/31/24 11:32 Mechanical Ventilator+ 05/29/24 19:20 4 Total Intake and Output 05/30/24 05/30/24 05/31/24 15:00 23:00 07:00 Intake Total 603.558 ml 647.736 ml 703.896 ml Output Total 1100 ml 650 ml Balance 603.558 ml -452.264 ml 53.896 ml medications Current Medications Medications Dose Ordered Sig/Elpidio Route Start Time Stop Time Status Last Admin Dose Admin Atorvastatin Calcium 10 mg HS PO 05/30/24 22:00 05/30/24 21:59 10 MG Albuterol 2.5 mg Q6HPRN PRN NEB 05/29/24 22:30 Ondansetron HCl 4 mg Q4HP PRN IV 05/29/24 22:30 Acetaminophen 650 mg Q6HP PRN PO 05/29/24 22:30 Nitroglycerin 0.4 mg Q5MINP PRN SL 05/29/24 22:30 Morphine Sulfate 2 mg Q30M PRN IV 05/29/24 22:30 Midazolam HCl 50 ml @ 1 mls/hr Q24H IV 05/29/24 22:30 05/30/24 15:27 5 MLS/HR Aspirin 81 mg DAILY PO 05/30/24 10:00 05/31/24 07:42 81 MG Meropenem 50 ml @ 17 mls/hr Q12HR IV 05/30/24 22:00 05/31/24 07:39 17 MLS/HR Fentanyl Citrate 250 ml @ 2.5 mls/hr Q24H IV 05/30/24 11:30 05/30/24 18:41 2.5 MLS/HR Norepinephrine Bitartrate 32 mg/ Sodium Chloride 250 ml @ 0.469 mls/ hr Q24H IV 05/30/24 19:45 05/31/24 05:14 10.781 MLS/HR Enteral Nutritional Formula 1,000 ml 30ML/HR GT 05/31/24 08:45 Sodium Bicarbonate 50 ml/ Sodium Chloride 1,050 ml @ 75 mls/hr Q14H IV 05/31/24 12:15 05/31/24 13:42 75 MLS/HR Vancomycin HCl 0 ml @ 0 mls/hr UD IV 05/31/24 12:15 UNV Examination: LUNGS:Normal, CVS:Normal, MSK:Normal laboratory and microbiology Laboratory Tests 05/31/24 08:05 Test 05/31/24 08:05 Range/Units Serum Glucose 146 H 74-106 mg/dL Microbiology Date/Time Source Procedure Growth Status 05/30/24 16:37 Stool Clostridium difficile Toxin Assay - Final Complete 05/30/24 03:15 Nose MRSA Screen - Final Complete 05/29/24 22:31 Urine - [place] Urine Culture - Preliminary Resulted 05/29/24 21:15 Sputum Gram Stain - Final Resulted 05/29/24 21:15 Sputum Respiratory Culture - Preliminary Resulted 05/29/24 19:38 Blood Blood Culture - Preliminary NO GROWTH AFTER 24 HOURS OF INCUBATION. Resulted Problem List/Assessment/Plan Problem List/Assessment/Plan Acute kidney injury superimposed Chronic Kidney Disease secondary hemodynamic mediated, creatinine was 1.2 on 05/21/2024 Vancomycin nephrotoxicity Acute respiratory failure, intubated on ventilator Hypernatremia due to dehydration Metabolic acidosis, resolved Dilated cardiomyopathy Diabetes mellitus type 2 NSTEMI Dementia Hypoalbuminemia Kidney stones, nonobstructing Recommendations Kidney function is improving Increased urine output Larson catheter Strict I&Os Increase free water down the NG tube Discontinue vancomycin kidney ultrasound nonobstructing kidney stone IV dobutamine Insulin SS Cardiology consult Urology consult We will continue to follow Plan discussed with: Other (Nurse) My Orders My Orders Orders - INDERJIT WESTBROOK MD Procedure Category Date Status Time Sodium Chl 0.9% PHA 05/30/24 In Process (Ns... 19:45 Dietary Evaluation Review Comments: 1) If GI is preferred route consider Jevity 1.2 @ 70 ml/hr goal rate as tolerated 2) If pt remains NPO >7days consider TPN to meet at least 75% of estimated needs 3) Advance pt diet to a Renal Specific K2,low phos,MILLER,2gmNa,50gPro diet 3) Continue current plan of care Expected Outcomes/Goals: 1) Pt to receive adequate nutrition support with 72 hrs of NPO status 2) Pt diet to advance 3) F/U in 2-3 days INDERJIT WESTBROOK MD May 31, 2024 13:50
[2024-05-31] MEDS: LINEZOLID 600MG/300ML 300 ML IV ONE (15:17)
[2024-05-31] MEDS ORDERED: Nepro With Carb Steady 1 Liter Bottle GT SCH (17:15)
[2024-06-01] VITALS (109 sets, daily range): BP systolic 83–169; BP diastolic 33–133; PULSE 50–71; RESP 15–21; TEMP 97.8–99.5; O2SAT 88–98
[2024-06-01] MEDS: LINEZOLID 600MG/300ML 300 ML IV SCH (00:52)
[2024-06-01 04:43] LABS: Basophils # (auto) 0 10 ^3/uL (0-0.2); Basophils % (auto) 0.2 % (0.0-2.0); Eosinophils # (auto) 0.4 10 ^3/uL (0-0.8); Eosinophils % (auto) 1.9 % (0.0-7.0); Hematocrit 45.7 % (41.0-53.0); Lymphocytes # (auto) 0.6 10 ^3/uL (0.4-5.4); Lymphocytes % (auto) 3.1 % (10.0-50.0); Mean Corpuscular Hemoglobin 32.6 pg (28.0-32.0); Mean Corpuscular Hgb Conc. 32.8 g/dL (32.0-36.0); Mean Corpuscular Volume 99.3 fL (80.0-100.0); Monocytes % (auto) 5.2 % (0.0-12.0); Neutrophils # (auto) 17.2 10 ^3/uL (1.6-8.6); Neutrophils % (auto) 89.6 % (37.0-80.0); Platelet Count (auto) 243 10^3/uL (140-450); Red Blood Cells 4.61 10^6/uL (4.5-5.90); Red Cell Distribution Width 15.9 % (11.8-14.3); White Blood Cell 19.2 10^3/uL (4.4-10.8)
[2024-06-01 05:01] LABS: Alanine Aminotransferase 73 U/L (7-40); Albumin 2.9 g/dL (3.2-4.8); Alkaline Phosphatase 203 U/L (46-116); Anion Gap 8 (5-15); Aspartate Aminotransferase 119 U/L (13-40); Calcium 8.9 mg/dL (8.7-10.4); Carbon Dioxide 29 mmol/L (20-31); Chloride 114 mmol/L (98-107); GFR African American 45 mL/min; GFR Non-African American 37 mL/min; Glucose 136 mg/dL (74-106); Magnesium 2.4 mg/dL (1.6-2.6); Potassium 3.9 mmol/L (3.5-5.1); Sodium 151 mmol/L (136-145)
[2024-06-01 05:02] LABS: Phosphorus 3.6 mg/dL (2.4-5.1); Total Protein 5.6 g/dL (5.7-8.2)
[2024-06-01 05:11] LABS: Blood Urea Nitrogen 61 mg/dL (9-23)
--- NOTE | 2024-06-01 05:47 | DVH ---
CHEST RADIOGRAPH Indication:reevaluate Technique: Single frontal view of the chest was obtained COMPARISON: XY CHEST XRAY 1 VIEW on DOS: 05/31/24, XY CHEST PORTABLE on DOS: 05/29/24, XY CHEST XRAY 1 VIEW on DOS: 05/20/24 FINDINGS: Lines and Tubes: Endotracheal tube, enteric catheter and right PICC in satisfactory position Lungs: Mild congestion Pleura: No effusion. No pneumothorax. Cardiomediastinal contours: Unremarkable Bones: Unremarkable IMPRESSION: Lines and tubes in satisfactory position. No significant interval change.
[2024-06-01 06:46] LABS: Base Excess 3.3 mmol/L (-2.0-3.0)
--- NOTE | 2024-06-01 06:55 | DVHPNRES ---
Progress Note Date Seen: Jun 01, 2024 Resident Creating Document: CLAIRE GALEANO RESIDENT Has the PT tested + for MRSA If YES, has PT been informed?: No Medical Necessity Reason Pt with a Central, PICC or Fol: Yes Subjective Review of Systems This is an 83-year-old male with past medical history of dementia, CHF (HFrEF 5%), dyslipidemia who presented to the ED for evaluation of altered level of consciousness. Patient was recently discharged from our facility due to cardiogenic shock and UTI secondary to E coli ESBL which was discharged on IV ertapenem. The patient was discharged to [facility] for rehab. It seems that staff on the sniff stated that the patient was getting more confused and altered in the past two days before coming to the ED. on arrival to the ED patient was lethargic with a blood pressure in the 70s, the patient was emergently intubated to secure airway and was admitted for further assessment and management to the ICU. Patient seen and examined at bedside. Patient is still on low dose of sedation at this time on mechanical ventilator on the following parameters: VT 450, RR 20, FiO2 60%, peep five, saturating 97% we will review ABG this morning showing a pH of 7.41, pCO2 of 46.3, HC03 of 28 and a PaO2 of 78.1 we decided to decrease FiO2 to 45% which patient tolerated fine. Patient lungs sounds bilateral clean but there is decreased breath sounds on bilateral lung bases. C diff came back negative, urine culture was negative so far and sputum is still growing Gram- positive cocci in clusters and chains. We will continue on IV meropenem and linezolid. ROS unable to obtain due to patient's current status, intubated Objective vital signs Vital Sign Date Time Temp Pulse Resp B/P (MAP) Pulse Ox O2 Delivery O2 Flow Rate FiO2 06/01/24 06:45 98.2 60 17 114/49 (70) 95 208.8 06/01/24 06:00 50 06/01/24 05:32 Mechanical Ventilator+ Total Intake and Output 05/31/24 05/31/24 06/01/24 15:00 23:00 07:00 Intake Total 545.057 ml 447.440 ml 456.377 ml Output Total 800 ml 725 ml Balance 545.057 ml -352.560 ml -268.623 ml medications Current Medications Medications Dose Ordered Sig/Elpidio Route Start Time Stop Time Status Last Admin Dose Admin Atorvastatin Calcium 10 mg HS PO 05/30/24 22:00 05/31/24 21:47 10 MG Albuterol 2.5 mg Q6HPRN PRN NEB 05/29/24 22:30 Ondansetron HCl 4 mg Q4HP PRN IV 05/29/24 22:30 Acetaminophen 650 mg Q6HP PRN PO 05/29/24 22:30 Nitroglycerin 0.4 mg Q5MINP PRN SL 05/29/24 22:30 Morphine Sulfate 2 mg Q30M PRN IV 05/29/24 22:30 Midazolam HCl 50 ml @ 1 mls/hr Q24H IV 05/29/24 22:30 05/30/24 15:27 5 MLS/HR Aspirin 81 mg DAILY PO 05/30/24 10:00 05/31/24 07:42 81 MG Meropenem 50 ml @ 17 mls/hr Q12HR IV 05/30/24 22:00 05/31/24 21:47 17 MLS/HR Fentanyl Citrate 250 ml @ 2.5 mls/hr Q24H IV 05/30/24 11:30 05/30/24 18:41 2.5 MLS/HR Norepinephrine Bitartrate 32 mg/ Sodium Chloride 250 ml @ 0.469 mls/ hr Q24H IV 05/30/24 19:45 05/31/24 05:14 10.781 MLS/HR Linezolid 300 ml @ 150 mls/hr Q12H IV 06/01/24 01:00 06/01/24 00:52 150 MLS/HR Enteral Nutritional Formula 1,000 ml 30ML/HR GT 05/31/24 17:15 Examination Physical Examination General: Patient sedated on [facility] vent: VT: 450, RR 20, FIO2 45%, sat 94%. HEENT: Normocephalic, atraumatic, moist mucous membranes Respiratory/pulmonary: Bilat lungs sounds grossly clear at this time. No wheezes. Cardiovascular: Regular heart sounds S1 and S2 with no associated murmurs Abdomen: Abdomen nondistended, there is no pain to palpation in any of the abdominal quadrants, no palpable masses. Extremities: There is no peripheral edema present at the lower extremities. Peripheral Pulses: 3+ Radial (R). 3+ Radial (L). 3+ Dorsalis pedis (R). 3+ Dorsalis pedis(L) Skin: No rashes or pruritus, there is no sacral edema present at this time. Neurological: Sedated, RASS -3 laboratory and microbiology Laboratory Tests 06/01/24 03:26 Test 06/01/24 03:26 Range/Units Serum Glucose 136 H 74-106 mg/dL Microbiology Date/Time Source Procedure Growth Status 05/30/24 16:37 Stool Clostridium difficile Toxin Assay - Final Complete 05/30/24 03:15 Nose MRSA Screen - Final Complete 05/29/24 22:31 Urine - [place] Urine Culture - Preliminary Resulted 05/29/24 21:15 Sputum Gram Stain - Final Resulted 05/29/24 21:15 Sputum Respiratory Culture - Preliminary Resulted 05/29/24 19:38 Blood Blood Culture - Preliminary NO GROWTH AFTER 48 HOURS OF INCUBATION. Resulted Problem List/Assessment/Plan Problem List/Assessment/Plan Assessment/Plan Neurology Acute toxic/metabolic encephalopathy likely uremic/sepsis -patient presented with altered level of consciousness and confusion -ordered ammonia levels Hx of Dementia Sedation -On midazolam -on fentanyl Cardiology Acute systolic heart failure (HFrEF 5%) -last echocardiogram showed an LVEF of 5-7% -currently on Levophed at 8 Cardiogenic shock -requiring vasopressor(Levophed) NSTEMI likely type II -due to above -trend troponins Bradyarrhythmia -HR occasional on 45-47 -Discontinued dobutamine drip Respiratory Acute hypoxic respiratory failure likely due to ARDS/CHF exacerbation -initial x-ray was grossly clear, very mild congestion -Decreased FIO2 to 45% -currently on mechanical ventilator: VT 450, RR20, FIO2 45%, PEEP 5.0 -continue on IV meropenem -continue IV linezolid -ordered sputum cultures and blood cultures -CPAP trial tomorrow AM Gastroenterology/urology Acute transaminitis likely due to sepsis -AST 119, ALT 73 Sepsis due to UTI -last time patient had UTI growing E coli ESBL and was discharged on ertapenem IV -we will switch from ertapenem to meropenem until pancultures are back Nephrology AB on CKD likely due to septic shock -creatinine was 1.85 and BUN 61 -on bicarbonate drip -nephrology on board -monitor kidney function Endocrinology Hyperglycemia -last hemoglobin A1c was normal range -Monitor glucose levels Lines -right subclavian triple-lumen placed on -Larson catheter placed on Goals of care discussed with daughter Samantha at bedside explaining present and previous admission history and plan of care for >32min Critical time spent >78min Plan discussed with Dr. Smith Plan discussed with: Other (sonny candelaria at bedside) My Orders My Orders Orders - CLAIRE GALEANO RESIDENT Procedure Category Date Status Time Communication Order ORDERS 05/31/24 Transmitted 06:59 Communication Order ORDERS 05/31/24 Transmitted 08:40 Nutritional PHA 05/31/24 In Process Supplements (Nepro 17:15 Chest Xray 1 View XY 06/01/24 Resulted 04:00 Abg W/ Co-Ox RT 06/01/24 Logged 05:09 Dietary Evaluation Review Comments: 1) If GI is preferred route consider Jevity 1.2 @ 70 ml/hr goal rate as tolerated 2) If pt remains NPO >7days consider TPN to meet at least 75% of estimated needs 3) Advance pt diet to a Renal Specific K2,low phos,MILLER,2gmNa,50gPro diet 3) Continue current plan of care Expected Outcomes/Goals: 1) Pt to receive adequate nutrition support with 72 hrs of NPO status 2) Pt diet to advance 3) F/U in 2-3 days Date of Service: Jun 01, 2024 Billing Provider: KIA SMITH MD Common Visit Codes: [id number] INP/OBS CARE(HIGH) CLAIRE GALEANO RESIDENT Jun 01, 2024 06:55 KIA SMITH MD Jun 03, 2024 22:29
[2024-06-01 11:35] LABS: Base Excess 3.6 mmol/L (-2.0-3.0)
--- NOTE | 2024-06-01 17:26 | DVHPN2 ---
Progress Note Date Seen: Jun 01, 2024 Has the PT tested + for MRSA If YES, has PT been informed?: No Medical Necessity Reason Pt with a Central, PICC or Fol: Yes Subjective Patient reports: Other Review of Systems: Deferred Objective vital signs Vital Sign Date Time Temp Pulse Resp B/P (MAP) Pulse Ox O2 Delivery O2 Flow Rate FiO2 06/01/24 16:21 57 20 129/41 (70) 96 45 06/01/24 16:00 Mechanical Ventilator+ 06/01/24 13:30 98.4 209.1 Total Intake and Output 05/31/24 05/31/24 06/01/24 15:00 23:00 07:00 Intake Total 545.057 ml 447.440 ml 465.596 ml Output Total 800 ml 725 ml Balance 545.057 ml -352.560 ml -259.404 ml medications Current Medications Medications Dose Ordered Sig/Elpidio Route Start Time Stop Time Status Last Admin Dose Admin Atorvastatin Calcium 10 mg HS PO 05/30/24 22:00 05/31/24 21:47 10 MG Albuterol 2.5 mg Q6HPRN PRN NEB 05/29/24 22:30 Ondansetron HCl 4 mg Q4HP PRN IV 05/29/24 22:30 Acetaminophen 650 mg Q6HP PRN PO 05/29/24 22:30 Nitroglycerin 0.4 mg Q5MINP PRN SL 05/29/24 22:30 Morphine Sulfate 2 mg Q30M PRN IV 05/29/24 22:30 Midazolam HCl 50 ml @ 1 mls/hr Q24H IV 05/29/24 22:30 05/30/24 15:27 5 MLS/HR Aspirin 81 mg DAILY PO 05/30/24 10:00 06/01/24 11:47 81 MG Meropenem 50 ml @ 17 mls/hr Q12HR IV 05/30/24 22:00 06/01/24 11:47 17 MLS/HR Fentanyl Citrate 250 ml @ 2.5 mls/hr Q24H IV 05/30/24 11:30 05/30/24 18:41 2.5 MLS/HR Norepinephrine Bitartrate 32 mg/ Sodium Chloride 250 ml @ 0.469 mls/ hr Q24H IV 05/30/24 19:45 05/31/24 05:14 10.781 MLS/HR Linezolid 300 ml @ 150 mls/hr Q12H IV 06/01/24 01:00 06/01/24 00:52 150 MLS/HR Enteral Nutritional Formula 1,000 ml 30ML/HR GT 05/31/24 17:15 Examination: GENERAL:Abnormal, LUNGS:Abnormal, NEURO:Abnormal laboratory and microbiology Laboratory Tests 06/01/24 03:26 Test 06/01/24 03:26 Range/Units Serum Glucose 136 H 74-106 mg/dL Microbiology Date/Time Source Procedure Growth Status 05/30/24 16:37 Stool Clostridium difficile Toxin Assay - Final Complete 05/30/24 03:15 Nose MRSA Screen - Final Complete 05/29/24 22:31 Urine - [place] Urine Culture - Final Complete 05/29/24 21:15 Sputum Gram Stain - Final Resulted 05/29/24 21:15 Sputum Respiratory Culture - Preliminary Resulted 05/29/24 19:38 Blood Blood Culture - Preliminary NO GROWTH AFTER 48 HOURS OF INCUBATION. Resulted Problem List/Assessment/Plan Problem List/Assessment/Plan Acute kidney injury superimposed Chronic Kidney Disease secondary hemodynamic mediated, creatinine was 1.2 on 05/21/2024 Vancomycin nephrotoxicity Acute respiratory failure, intubated on ventilator Hypernatremia due to dehydration Metabolic acidosis, resolved Dilated cardiomyopathy Diabetes mellitus type 2 NSTEMI Dementia Hypoalbuminemia Kidney stones, nonobstructing Recommendations Kidney function is improving d5w iv for 1 L Discontinue vancomycin kidney ultrasound nonobstructing kidney stone IV dobutamine Insulin SS Cardiology consult Urology consult We will continue to follow Plan discussed with: Other My Orders My Orders Orders - CHERYL KNOWLES MD Procedure Category Date Status Time D5w 5% (Dextrose 5%) PHA 06/01/24 In Process 17:30 Dietary Evaluation Review Comments: 1) If GI is preferred route consider Jevity 1.2 @ 70 ml/hr goal rate as tolerated 2) If pt remains NPO >7days consider TPN to meet at least 75% of estimated needs 3) Advance pt diet to a Renal Specific K2,low phos,MILLER,2gmNa,50gPro diet 3) Continue current plan of care Expected Outcomes/Goals: 1) Pt to receive adequate nutrition support with 72 hrs of NPO status 2) Pt diet to advance 3) F/U in 2-3 days CHERYL KNOWLES MD Jun 01, 2024 17:26
[2024-06-01] MEDS ORDERED: D5W 5% 1,000 ML IV ONE (17:30)
[2024-06-02] VITALS (105 sets, daily range): BP systolic 73–160; BP diastolic 31–86; PULSE 47–103; RESP 12–24; TEMP 53.8–99.9; O2SAT 95–100
[2024-06-02 04:22] LABS: Basophils # (auto) 0 10 ^3/uL (0-0.2); Basophils % (auto) 0.1 % (0.0-2.0); Eosinophils # (auto) 0.4 10 ^3/uL (0-0.8); Eosinophils % (auto) 1.9 % (0.0-7.0); Hematocrit 46.6 % (41.0-53.0); Hemoglobin 15.6 g/dL (13.5-17.5); Lymphocytes % (auto) 5.1 % (10.0-50.0); Mean Corpuscular Hemoglobin 33.4 pg (28.0-32.0); Mean Corpuscular Hgb Conc. 33.4 g/dL (32.0-36.0); Monocytes # (auto) 1.5 10 ^3/uL (0-1.3); Monocytes % (auto) 7.6 % (0.0-12.0); Neutrophils # (auto) 17.1 10 ^3/uL (1.6-8.6); Neutrophils % (auto) 85.3 % (37.0-80.0); Platelet Count (auto) 224 10^3/uL (140-450); Red Blood Cells 4.66 10^6/uL (4.5-5.90); White Blood Cell 20.1 10^3/uL (4.4-10.8)
[2024-06-02 04:41] LABS: Alanine Aminotransferase 110 U/L (7-40); Alkaline Phosphatase 290 U/L (46-116); Anion Gap 8 (5-15); BUN/Creatinine Ratio 33.6 (10.0-20.0); Carbon Dioxide 28 mmol/L (20-31); Chloride 116 mmol/L (98-107); Glucose 158 mg/dL (74-106); Magnesium 2.4 mg/dL (1.6-2.6); Potassium 3.9 mmol/L (3.5-5.1); Sodium 152 mmol/L (136-145)
[2024-06-02 04:42] LABS: Albumin 3.1 g/dL (3.2-4.8); Aspartate Aminotransferase 216 U/L (13-40); Blood Urea Nitrogen 46 mg/dL (9-23); Phosphorus 3.4 mg/dL (2.4-5.1)
[2024-06-02 04:43] LABS: Bilirubin, Total 0.7 mg/dL (0.2-1.0); Total Protein 5.9 g/dL (5.7-8.2)
--- NOTE | 2024-06-02 04:53 | DVH ---
EXAM: XY CHEST XRAY 1 VIEW Indication:reevaluate vasc congestion Technique: Single frontal view of the chest was obtained Comparison: XY CHEST XRAY 1 VIEW on DOS: 06/01/24, XY CHEST XRAY 1 VIEW on DOS: 05/31/24, XY CHEST PO RTABLE on DOS: 05/29/24, XY CHEST XRAY 1 VIEW on DOS: 05/20/24, XY CHEST XRAY 1 VIEW on DOS: 05/18/24, XY CHEST XRAY 1 VIEW on DOS: 06/01/24 FINDINGS: Lines and Tubes: Endotracheal tube, enteric catheter and right PICC in satisfactory position Lungs: Mild congestion Pleura: No effusion. No pneumothorax. Cardiomediastinal contours: Unremarkable Bones: Unremarkable IMPRESSION: Lines and tubes in satisfactory position. No significant interval change.
[2024-06-02 08:29] LABS: Base Excess 1.8 mmol/L (-2.0-3.0)
[2024-06-02] MEDS: MEROPENEM 1GM IVPB 50 ML IV SCH (09:53)
--- NOTE | 2024-06-02 12:49 | DVHPN2 ---
Progress Note Date Seen: Jun 02, 2024 Has the PT tested + for MRSA If YES, has PT been informed?: No Medical Necessity Reason Pt with a Central, PICC or Fol: Yes Subjective Other Systems: creat improved on pressors cpap today Objective vital signs Vital Sign Date Time Temp Pulse Resp B/P (MAP) Pulse Ox O2 Delivery O2 Flow Rate FiO2 06/02/24 12:23 54 22 123/45 (71) 100 45 06/02/24 12:15 98.6 209.5 06/02/24 12:00 Mechanical Ventilator+ Total Intake and Output 06/01/24 06/01/24 06/02/24 15:00 23:00 07:00 Intake Total 406.721 ml 319.100 ml 586.894 ml Output Total 500 ml 700 ml Balance 406.721 ml -180.900 ml -113.106 ml medications Current Medications Medications Dose Ordered Sig/Elpidio Route Start Time Stop Time Status Last Admin Dose Admin Atorvastatin Calcium 10 mg HS PO 05/30/24 22:00 06/01/24 22:09 10 MG Albuterol 2.5 mg Q6HPRN PRN NEB 05/29/24 22:30 Ondansetron HCl 4 mg Q4HP PRN IV 05/29/24 22:30 Acetaminophen 650 mg Q6HP PRN PO 05/29/24 22:30 Nitroglycerin 0.4 mg Q5MINP PRN SL 05/29/24 22:30 Morphine Sulfate 2 mg Q30M PRN IV 05/29/24 22:30 Midazolam HCl 50 ml @ 1 mls/hr Q24H IV 05/29/24 22:30 05/30/24 15:27 5 MLS/HR Aspirin 81 mg DAILY PO 05/30/24 10:00 06/01/24 11:47 81 MG Fentanyl Citrate 250 ml @ 2.5 mls/hr Q24H IV 05/30/24 11:30 05/30/24 18:41 2.5 MLS/HR Norepinephrine Bitartrate 32 mg/ Sodium Chloride 250 ml @ 0.469 mls/ hr Q24H IV 05/30/24 19:45 06/01/24 20:28 6.563 MLS/HR Linezolid 300 ml @ 150 mls/hr Q12H IV 06/01/24 01:00 06/02/24 01:02 150 MLS/HR Enteral Nutritional Formula 1,000 ml 30ML/HR GT 05/31/24 17:15 Meropenem 50 ml @ 17 mls/hr Q12HR IV 06/02/24 10:00 06/02/24 09:53 17 MLS/HR Examination: GENERAL:Abnormal, HEENT:Abnormal, LUNGS:Abnormal, CVS:Abnormal, ABDOMEN:Abnormal laboratory and microbiology Laboratory Tests 06/02/24 03:40 Test 06/02/24 03:40 Range/Units Serum Glucose 158 H 74-106 mg/dL Microbiology Date/Time Source Procedure Growth Status 05/30/24 16:37 Stool Clostridium difficile Toxin Assay - Final Complete 05/30/24 03:15 Nose MRSA Screen - Final Complete 05/29/24 22:31 Urine - [place] Urine Culture - Final Complete 05/29/24 21:15 Sputum Gram Stain - Final Complete 05/29/24 21:15 Respiratory Culture - Final Acinetobacter baumannii Complete 05/29/24 19:38 Blood Blood Culture - Preliminary NO GROWTH AFTER 72 HOURS OF INCUBATION. Resulted Problem List/Assessment/Plan Problem List/Assessment/Plan end stage HF ckd HTN bradycardia recent nstemi cont pressors , can wean down as feasible low dose dopamine as needed cont diuretics cpap poor prognosis Plan discussed with: Other (rn) Dietary Evaluation Review Comments: 1) If GI is preferred route consider Jevity 1.2 @ 70 ml/hr goal rate as tolerated 2) If pt remains NPO >7days consider TPN to meet at least 75% of estimated needs 3) Advance pt diet to a Renal Specific K2,low phos,MILLER,2gmNa,50gPro diet 3) Continue current plan of care Expected Outcomes/Goals: 1) Pt to receive adequate nutrition support with 72 hrs of NPO status 2) Pt diet to advance 3) F/U in 2-3 days Date of Service: Jun 02, 2024 Billing Provider: ASHLEIGH MANZO MD Common Visit Codes: NOT BILLABLE ASHLEIGH MANZO MD Jun 02, 2024 12:49
--- NOTE | 2024-06-02 13:06 | DVHPN2 ---
Subjective Patient awake, not following commands. Reviewed: Care Plan, H&P, Labs, Medications, Previous Orders Changes from previous H/P or p: No Changes General: Per HPI Objective Vitals Vital Signs Date Time Temp Pulse Resp B/P (MAP) Pulse Ox O2 Delivery O2 Flow Rate FiO2 06/02/24 12:23 54 22 123/45 (71) 100 45 06/02/24 12:15 98.6 209.5 06/02/24 12:00 Mechanical Ventilator+ Intake/Output Intake and Output 06/02/24 07:00 Intake Total 1312.715 ml Output Total 1200 ml Balance 112.715 ml Intake Oral 120 ml IV Total 844.715 ml Tube Feeding 348 ml Output Urine Total 1200 ml Stool Total 0 ml General Appearance: Alert, moderate distress HEENT: Atraumatic, PERRLA Lungs: Clear to auscultation, Normal air movement, Other (Mechanical ventilation) Cardiovascular: Normal S1, Normal S2, Other (Sinus rhythm with periods of bradycardia) Abdomen: Normal bowel sounds Genitourinary: No Apparent Abnormalities ([place]arson catheter) Musculoskeletal: Weak motor strength RUE, Weak motor strength LUE, Weak motor strength RLE, Weak motor strength LLE Psych/Mental Status: Mental status NL, Mood NL Medications Current Medications Medications Dose Ordered Sig/Elpidio Route Start Time Stop Time Status Last Admin Dose Admin Atorvastatin Calcium 10 mg HS PO 05/30/24 22:00 06/01/24 22:09 10 MG Albuterol 2.5 mg Q6HPRN PRN NEB 05/29/24 22:30 Ondansetron HCl 4 mg Q4HP PRN IV 05/29/24 22:30 Acetaminophen 650 mg Q6HP PRN PO 05/29/24 22:30 Nitroglycerin 0.4 mg Q5MINP PRN SL 05/29/24 22:30 Morphine Sulfate 2 mg Q30M PRN IV 05/29/24 22:30 Midazolam HCl 50 ml @ 1 mls/hr Q24H IV 05/29/24 22:30 05/30/24 15:27 5 MLS/HR Aspirin 81 mg DAILY PO 05/30/24 10:00 06/01/24 11:47 81 MG Fentanyl Citrate 250 ml @ 2.5 mls/hr Q24H IV 05/30/24 11:30 05/30/24 18:41 2.5 MLS/HR Norepinephrine Bitartrate 32 mg/ Sodium Chloride 250 ml @ 0.469 mls/ hr Q24H IV 05/30/24 19:45 06/01/24 20:28 6.563 MLS/HR Linezolid 300 ml @ 150 mls/hr Q12H IV 06/01/24 01:00 06/02/24 12:56 150 MLS/HR Enteral Nutritional Formula 1,000 ml 30ML/HR GT 05/31/24 17:15 Meropenem 50 ml @ 17 mls/hr Q12HR IV 06/02/24 10:00 06/02/24 09:53 17 MLS/HR Dopamine HCl/ Dextrose 250 ml @ 7.022 mls/ hr Q24H IV 06/02/24 13:00 UNV Laboratory Results Laboratory Tests 06/02/24 03:40 Chemistry Test 06/02/24 03:40 Albumin 3.1 g/dL (3.2-4.8) L Calcium Level 9.0 mg/dL (8.7-10.4) Magnesium Level 2.4 mg/dL (1.6-2.6) Phosphorus Level 3.4 mg/dL (2.4-5.1) Total Protein 5.9 g/dL (5.7-8.2) LFT Test 06/02/24 03:40 Alanine Aminotransferase (ALT) 110 U/L (7-40) H Alkaline Phosphatase 290 U/L (46-116) H Aspartate Amino Transferase (AST) 216 U/L (13-40) H Total Bilirubin 0.7 mg/dL (0.2-1.0) Urinalysis Test 05/30/24 11:14 Urine Color Yellow (Yellow) Urine Clarity Turbid (Clear) H Urine pH 5.0 (5.0-9.0) Urine Specific [place] 1.012 (1.001-1.035) Urine Protein 1+ (Negative) H Urine Ketones Negative (Negative) Urine Blood 2+ /uL (Negative) H Urine Nitrite Negative (Negative) Urine Bilirubin Negative (Negative) Urine Urobilinogen Normal mg/dL (Negative) Urine Leukocyte Esterase 1+ /uL (Negative) Urine RBC 5 /hpf (0 - 3) Urine WBC 17 /hpf (0 - 3) Urine Squamous Epithelial Cells None seen /hpf (<5) Urine Bacteria Few /hpf (None Seen) H Urine Hyaline Casts Few /lpf (0 - 2) Urine Mucus Few (None Seen) Urine Creatinine 77.37 mg/dL (30.0-125.0) Urine Protein/Creatinine Ratio 1.05 Urine Sodium 64 mmol/L (40-220) Urine Glucose Normal mg/dL (Normal) Urine Total Protein 80.9 mg/dL (1-14) H Blood Gas Results Test 06/02/24 07:35 Arterial Blood pH 7.396 (7.350-7.450) FiO2 % 45.0 Microbiology Microbiology Date/Time Source Procedure Growth Status 05/30/24 16:37 Stool Clostridium difficile Toxin Assay - Final Complete 05/30/24 03:15 Nose MRSA Screen - Final Complete 05/29/24 22:31 Urine - [place] Urine Culture - Final Complete 05/29/24 21:15 Sputum Gram Stain - Final Complete 05/29/24 21:15 Respiratory Culture - Final Acinetobacter baumannii Complete 05/29/24 19:38 Blood Blood Culture - Preliminary NO GROWTH AFTER 72 HOURS OF INCUBATION. Resulted Labs and/or images reviewed: Labs reviewed by me, Image(s) reviewed by me Assessment/Plan Assessment/Plan Impression: -acute hypoxic respiratory failure -mechanical ventilation -community-acquired pneumonia with Acinetobacter baumannii -acute on chronic systolic heart failure with ejection fraction approximately 5% -sinus bradycardia -recent history of UTI with ESBL -acute kidney injury, vasomotor nephropathy -sepsis -hyponatremia -severe protein malnutrition Plan: -continue current ventilator settings, sedation weaned, CPAP trial once appropriate -start for dopamine drip at 2.5 micrograms/kilogram per minute -attempt to wean norepinephrine drip -tube feeding as tolerated -continue antibiotic therapy with Zyvox, -continue fluid restriction -repeat labs, chest, x-ray, ABG in a.m. Critical care time spent with patient discussing and formulating plan of care: 40 minutes. This does not include time spent performing procedures. This medical document was created using an electronic medical record system with [employer] dictation system. Although this document has been carefully reviewed, there may still be some phonetic and typographical errors. These areas are purely typographical due to imperfections of the software programs, and do not reflect any compromise in the patient's medical care. Plan discussed with: Patient, Other (RN) My Orders Orders - BRITANY BALDERAS [employer] Procedure Category Date Status Time Cpap Trial For Am ORDERS 06/02/24 Transmitted 12:29 Dopamine 1600mcg/Ml PHA 06/02/24 Logged D5W 13:00 Basic Metabolic Panel LAB 06/03/24 Verified 04:00 Complete Blood Count LAB 06/03/24 Verified 04:00 Cpap Trial For Am ORDERS 06/03/24 Transmitted 04:00 Date of Service: Jun 02, 2024 Billing Provider: BRITANY BALDERAS NP Common Visit Codes: [id number] CARE 30-74 MIN BRITANY BALDERAS NP Jun 02, 2024 13:05
[2024-06-02] MEDS: DOPamine 1600MCG/ML D5W 250 ML IV SCH (13:46)
--- NOTE | 2024-06-02 15:47 | DVHPN2 ---
Progress Note - Dictate Date Seen: Jun 02, 2024 Has the PT tested + for MRSA If YES, has PT been informed?: No Medical Necessity Reason Pt with a Central, PICC or Fol: Yes Subjective Patient seen and examined at bedside. On mechanical ventilation Overnight events reviewed vital signs Vital Sign Date Time Temp Pulse Resp B/P (MAP) Pulse Ox O2 Delivery O2 Flow Rate FiO2 06/02/24 15:15 98.1 101 19 126/60 (82) 100 208.6 06/02/24 14:52 40 06/02/24 14:00 Mechanical Ventilator+ Total Intake and Output 06/01/24 06/01/24 06/02/24 15:00 23:00 07:00 Intake Total 406.721 ml 319.100 ml 586.894 ml Output Total 500 ml 700 ml Balance 406.721 ml -180.900 ml -113.106 ml medications Current Medications Medications Dose Ordered Sig/Elpidio Route Start Time Stop Time Status Last Admin Dose Admin Atorvastatin Calcium 10 mg HS PO 05/30/24 22:00 06/01/24 22:09 10 MG Albuterol 2.5 mg Q6HPRN PRN NEB 05/29/24 22:30 Ondansetron HCl 4 mg Q4HP PRN IV 05/29/24 22:30 Acetaminophen 650 mg Q6HP PRN PO 05/29/24 22:30 Nitroglycerin 0.4 mg Q5MINP PRN SL 05/29/24 22:30 Morphine Sulfate 2 mg Q30M PRN IV 05/29/24 22:30 Midazolam HCl 50 ml @ 1 mls/hr Q24H IV 05/29/24 22:30 05/30/24 15:27 5 MLS/HR Aspirin 81 mg DAILY PO 05/30/24 10:00 06/01/24 11:47 81 MG Fentanyl Citrate 250 ml @ 2.5 mls/hr Q24H IV 05/30/24 11:30 05/30/24 18:41 2.5 MLS/HR Norepinephrine Bitartrate 32 mg/ Sodium Chloride 250 ml @ 0.469 mls/ hr Q24H IV 05/30/24 19:45 06/01/24 20:28 6.563 MLS/HR Linezolid 300 ml @ 150 mls/hr Q12H IV 06/01/24 01:00 06/02/24 12:56 150 MLS/HR Enteral Nutritional Formula 1,000 ml 30ML/HR GT 05/31/24 17:15 Meropenem 50 ml @ 17 mls/hr Q12HR IV 06/02/24 10:00 06/02/24 09:53 17 MLS/HR Dopamine HCl/ Dextrose 250 ml @ 7.022 mls/ hr Q24H IV 06/02/24 13:00 06/02/24 13:46 7.022 MLS/HR objective Gen.: Patient lying in bed in medical ICU. Sedated, intubated on mechanical ventilator. Head: Normocephalic, atraumatic. Eyes: PERRLA. Ears: Normal external anatomy. Throat: Endotracheal tube and orogastric tube in place. Neck: Supple, trachea midline. Chest: Transmitted breath sounds bilaterally. Decreased air entry bilaterally. No wheezing. Bibasilar crackles. Cardio vascular: Positive S1, positive S2. Regular rate and rhythm. Abdomen: Positive bowel sounds in all 4 quadrants. Soft, nontender, nondistended. : Larson in place. Normal external genitalia. Rectal: Deferred Skin: Warm, dry. Intact. Extremities: 2+ radial pulses bilaterally. No lower extremity edema. Neuro: Sedated. laboratory and microbiology Laboratory Tests 06/02/24 03:40 Test 06/02/24 03:40 Range/Units Serum Glucose 158 H 74-106 mg/dL Assessment/Plan Impression: Acute hypoxic respiratory failure On mechanical ventilator Pneumonia with Acinetobacter baumannii Acute on chronic systolic heart failure with ejection fraction of 5% UTI with ESBL Acute kidney injury Sepsis Hypernatremia Severe protein malnutrition Plan: s/p intubation on mechanical ventilator CXR image and report reviewed. Devices in place. Mild pulmonary vascular congestion. ABG reviewed. Compensated On AC mode with respiratory rate of 20, tidal volume 450, peep of five, FiO2 of 45%. Titrate FIO2 to keep O2 saturation above 92%. VAP bundle Daily ABG and CXR while intubated. Sedate for ventilatory synchrony Taper sedation CPAP trial with pressure support of eight, peep of five in the a.m. if remains on FiO2 45% or less and PEEP of 8 cm of water less. Okay to increase pressure support max of 20 cm of water to achieve tidal volumes of 400-450 Currently on CPAP with PS 10, Peep 5 Pulling in volumes of 400-450mL RR [address] back on full support overnight We can reattempt CPAP in AM On pressors for hemodynamic support. On Levophed 5 mcg / min Titrate to keep MAP above 65 mmHg/SBP above 90 mmHg. On Dopamine drip, renally dosed at 2.5 mcg Continue antibiotics. F/u cultures. Sputum notable For Acinetobacter baumanii Leukocytosis Monitor WBC count Monitor renal function due to Acute kidney injury. Monitor electrolytes. Supplement as necessary. Nutritional support. Accucheks, ISS. GI/DVT prophylaxis. Condition: Critical Prognosis: Poor given multiple comorbidities. Rest of plan per hospitalist and other consultants. A total of 35 minutes of critical care time was spent reviewing the patient record, examining the patient, making a diagnostic and therapeutic plan, discussing this plan with the medical personnel, following up on diagnostic studies and following the patient for clinical stability excluding any and all procedures. At least 50% of this time was spent in direct, [id number] contact. Thank you AMEENA Murphy for allowing me to participate in this patient's care. Further recommendations will depend on patient's clinical course. Please do not hesitate to contact me if you have any questions or concerns. This medical document was created using an electronic medical record system with [employer] computerized dictation system. Although this document has been carefully reviewed, there may still be some phonetic and typographical errors. These areas are purely typographical due to imperfections of the software programs, and do not reflect any compromise in the patient's medical care. Dietary Evaluation Review Comments: 1) If GI is preferred route consider Jevity 1.2 @ 70 ml/hr goal rate as tolerated 2) If pt remains NPO >7days consider TPN to meet at least 75% of estimated needs 3) Advance pt diet to a Renal Specific K2,low phos,MILLER,2gmNa,50gPro diet 3) Continue current plan of care Expected Outcomes/Goals: 1) Pt to receive adequate nutrition support with 72 hrs of NPO status 2) Pt diet to advance 3) F/U in 2-3 days Plan discussed with: Other (RN Joby, RT, MD) Critical Care Time(min): 35 MODE MACKEY MD Jun 02, 2024 15:47
--- NOTE | 2024-06-02 19:21 | DVHPN2 ---
Progress Note Date Seen: Jun 02, 2024 Has the PT tested + for MRSA If YES, has PT been informed?: No Medical Necessity Reason Pt with a Central, PICC or Fol: Yes Subjective Patient reports: Other (Remains intubated) Review of Systems: Deferred Objective vital signs Vital Sign Date Time Temp Pulse Resp B/P (MAP) Pulse Ox O2 Delivery O2 Flow Rate FiO2 06/02/24 18:45 92.7 77 20 97/45 (62) 99 198.9 06/02/24 18:00 40 06/02/24 18:00 Mechanical Ventilator+ Total Intake and Output 06/01/24 06/01/24 06/02/24 15:00 23:00 07:00 Intake Total 406.721 ml 319.100 ml 586.894 ml Output Total 500 ml 700 ml Balance 406.721 ml -180.900 ml -113.106 ml medications Current Medications Medications Dose Ordered Sig/Elpidio Route Start Time Stop Time Status Last Admin Dose Admin Atorvastatin Calcium 10 mg HS PO 05/30/24 22:00 06/01/24 22:09 10 MG Albuterol 2.5 mg Q6HPRN PRN NEB 05/29/24 22:30 Ondansetron HCl 4 mg Q4HP PRN IV 05/29/24 22:30 Acetaminophen 650 mg Q6HP PRN PO 05/29/24 22:30 Nitroglycerin 0.4 mg Q5MINP PRN SL 05/29/24 22:30 Morphine Sulfate 2 mg Q30M PRN IV 05/29/24 22:30 Midazolam HCl 50 ml @ 1 mls/hr Q24H IV 05/29/24 22:30 05/30/24 15:27 5 MLS/HR Aspirin 81 mg DAILY PO 05/30/24 10:00 06/02/24 16:38 81 MG Fentanyl Citrate 250 ml @ 2.5 mls/hr Q24H IV 05/30/24 11:30 05/30/24 18:41 2.5 MLS/HR Norepinephrine Bitartrate 32 mg/ Sodium Chloride 250 ml @ 0.469 mls/ hr Q24H IV 05/30/24 19:45 06/01/24 20:28 6.563 MLS/HR Linezolid 300 ml @ 150 mls/hr Q12H IV 06/01/24 01:00 06/02/24 12:56 150 MLS/HR Enteral Nutritional Formula 1,000 ml 30ML/HR GT 05/31/24 17:15 Meropenem 50 ml @ 17 mls/hr Q12HR IV 06/02/24 10:00 06/02/24 09:53 17 MLS/HR Dopamine HCl/ Dextrose 250 ml @ 7.022 mls/ hr Q24H IV 06/02/24 13:00 06/02/24 13:46 7.022 MLS/HR Examination: GENERAL:Abnormal, LUNGS:Abnormal, NEURO:Abnormal laboratory and microbiology Laboratory Tests 06/02/24 03:40 Test 06/02/24 03:40 Range/Units Serum Glucose 158 H 74-106 mg/dL Microbiology Date/Time Source Procedure Growth Status 05/30/24 16:37 Stool Clostridium difficile Toxin Assay - Final Complete 05/30/24 03:15 Nose MRSA Screen - Final Complete 05/29/24 22:31 Urine - [place] Urine Culture - Final Complete 05/29/24 21:15 Sputum Gram Stain - Final Complete 05/29/24 21:15 Respiratory Culture - Final Acinetobacter baumannii Complete 05/29/24 19:38 Blood Blood Culture - Preliminary NO GROWTH AFTER 72 HOURS OF INCUBATION. Resulted Problem List/Assessment/Plan Problem List/Assessment/Plan Acute kidney injury superimposed Chronic Kidney Disease secondary hemodynamic mediated, creatinine was 1.2 on 05/21/2024 Vancomycin nephrotoxicity Acute on chronic Congestive heart failure exacerbation EF 6 to 7 Acute respiratory failure, intubated on ventilator Hypernatremia due to dehydration Metabolic acidosis, resolved Dilated cardiomyopathy Diabetes mellitus type 2 NSTEMI Dementia Hypoalbuminemia Kidney stones, nonobstructing Recommendations Free water as ordered for sodium correction Severely low ejection fraction Plan discussed with: Other Dietary Evaluation Review Comments: 1) If GI is preferred route consider Jevity 1.2 @ 70 ml/hr goal rate as tolerated 2) If pt remains NPO >7days consider TPN to meet at least 75% of estimated needs 3) Advance pt diet to a Renal Specific K2,low phos,MILLER,2gmNa,50gPro diet 3) Continue current plan of care Expected Outcomes/Goals: 1) Pt to receive adequate nutrition support with 72 hrs of NPO status 2) Pt diet to advance 3) F/U in 2-3 days CHERYL KNOWLES MD Jun 02, 2024 19:21
[2024-06-03] VITALS (104 sets, daily range): BP systolic 76–138; BP diastolic 28–93; PULSE 59–110; RESP 12–31; TEMP 98.6–99.9; O2SAT 97–100
[2024-06-03 04:13] LABS: Basophils # (auto) 0 10 ^3/uL (0-0.2); Basophils % (auto) 0.1 % (0.0-2.0); Eosinophils # (auto) 0.3 10 ^3/uL (0-0.8); Hematocrit 47.7 % (41.0-53.0); Hemoglobin 15.4 g/dL (13.5-17.5); Lymphocytes # (auto) 0.7 10 ^3/uL (0.4-5.4); Lymphocytes % (auto) 5.3 % (10.0-50.0); Mean Corpuscular Hemoglobin 32.6 pg (28.0-32.0); Mean Corpuscular Hgb Conc. 32.3 g/dL (32.0-36.0); Mean Corpuscular Volume 100.9 fL (80.0-100.0); Monocytes % (auto) 6.9 % (0.0-12.0); Neutrophils # (auto) 12.1 10 ^3/uL (1.6-8.6); Neutrophils % (auto) 85.7 % (37.0-80.0); Nucleated Red Blood Cells % 0.1 %; Platelet Count (auto) 180 10^3/uL (140-450); Red Blood Cells 4.72 10^6/uL (4.5-5.90); Red Cell Distribution Width 16.4 % (11.8-14.3); White Blood Cell 14.1 10^3/uL (4.4-10.8)
[2024-06-03 04:38] LABS: Chloride 115 mmol/L (98-107); Potassium 4.3 mmol/L (3.5-5.1); Sodium 153 mmol/L (136-145)
[2024-06-03 04:39] LABS: Anion Gap 11 (5-15); Carbon Dioxide 27 mmol/L (20-31)
[2024-06-03 04:40] LABS: Calcium 9.2 mg/dL (8.7-10.4)
[2024-06-03 04:45] LABS: BUN/Creatinine Ratio 29.3 (10.0-20.0); Blood Urea Nitrogen 36 mg/dL (9-23); Glucose 135 mg/dL (74-106)
--- NOTE | 2024-06-03 07:24 | DVHPN2 ---
Subjective Patient awake, not following commands. Reviewed: Care Plan, H&P, Labs, Medications, Previous Orders Changes from previous H/P or p: No Changes General: Per HPI Objective Vitals Vital Signs Date Time Temp Pulse Resp B/P (MAP) Pulse Ox O2 Delivery O2 Flow Rate FiO2 06/03/24 06:45 98.6 72 20 103/47 (65) 99 209.5 06/03/24 06:01 30 06/03/24 06:00 Mechanical Ventilator+ Intake/Output Intake and Output 06/03/24 07:00 Intake Total 1177.846 ml Output Total 1050 ml Balance 127.846 ml Intake Oral 120 ml IV Total 907.846 ml Tube Feeding 150 ml Output Urine Total 1050 ml General Appearance: Alert, mild distress HEENT: Atraumatic, PERRLA Lungs: Clear to auscultation, Normal air movement, Other (Mechanical ventilation) Cardiovascular: Normal S1, Normal S2, Other (Sinus rhythm with periods of bradycardia) Abdomen: Normal bowel sounds Genitourinary: No Apparent Abnormalities (Larson catheter) Musculoskeletal: Weak motor strength RUE, Weak motor strength LUE, Weak motor strength RLE, Weak motor strength LLE Psych/Mental Status: Mental status NL, Mood NL Medications Current Medications Medications Dose Ordered Sig/Elpidio Route Start Time Stop Time Status Last Admin Dose Admin Atorvastatin Calcium 10 mg HS PO 05/30/24 22:00 06/02/24 21:54 10 MG Albuterol 2.5 mg Q6HPRN PRN NEB 05/29/24 22:30 Ondansetron HCl 4 mg Q4HP PRN IV 05/29/24 22:30 Acetaminophen 650 mg Q6HP PRN PO 05/29/24 22:30 Nitroglycerin 0.4 mg Q5MINP PRN SL 05/29/24 22:30 Morphine Sulfate 2 mg Q30M PRN IV 05/29/24 22:30 Midazolam HCl 50 ml @ 1 mls/hr Q24H IV 05/29/24 22:30 05/30/24 15:27 5 MLS/HR Aspirin 81 mg DAILY PO 05/30/24 10:00 06/02/24 16:38 81 MG Fentanyl Citrate 250 ml @ 2.5 mls/hr Q24H IV 05/30/24 11:30 05/30/24 18:41 2.5 MLS/HR Norepinephrine Bitartrate 32 mg/ Sodium Chloride 250 ml @ 0.469 mls/ hr Q24H IV 05/30/24 19:45 06/02/24 22:05 2.344 MLS/HR Linezolid 300 ml @ 150 mls/hr Q12H IV 06/01/24 01:00 06/03/24 01:53 150 MLS/HR Enteral Nutritional Formula 1,000 ml 30ML/HR GT 05/31/24 17:15 Meropenem 50 ml @ 17 mls/hr Q12HR IV 06/02/24 10:00 06/02/24 21:54 17 MLS/HR Dopamine HCl/ Dextrose 250 ml @ 7.022 mls/ hr Q24H IV 06/02/24 13:00 06/02/24 13:46 7.022 MLS/HR Laboratory Results Laboratory Tests 06/03/24 03:40 Chemistry Test 06/03/24 03:40 Calcium Level 9.2 mg/dL (8.7-10.4) Urinalysis Test 05/30/24 11:14 Urine Color Yellow (Yellow) Urine Clarity Turbid (Clear) H Urine pH 5.0 (5.0-9.0) Urine Specific [place] 1.012 (1.001-1.035) Urine Protein 1+ (Negative) H Urine Ketones Negative (Negative) Urine Blood 2+ /uL (Negative) H Urine Nitrite Negative (Negative) Urine Bilirubin Negative (Negative) Urine Urobilinogen Normal mg/dL (Negative) Urine Leukocyte Esterase 1+ /uL (Negative) Urine RBC 5 /hpf (0 - 3) Urine WBC 17 /hpf (0 - 3) Urine Squamous Epithelial Cells None seen /hpf (<5) Urine Bacteria Few /hpf (None Seen) H Urine Hyaline Casts Few /lpf (0 - 2) Urine Mucus Few (None Seen) Urine Creatinine 77.37 mg/dL (30.0-125.0) Urine Protein/Creatinine Ratio 1.05 Urine Sodium 64 mmol/L (40-220) Urine Glucose Normal mg/dL (Normal) Urine Total Protein 80.9 mg/dL (1-14) H Blood Gas Results Test 06/02/24 07:35 Arterial Blood pH 7.396 (7.350-7.450) FiO2 % 45.0 Microbiology Microbiology Date/Time Source Procedure Growth Status 05/30/24 16:37 Stool Clostridium difficile Toxin Assay - Final Complete 05/30/24 03:15 Nose MRSA Screen - Final Complete 05/29/24 22:31 Urine - [place] Urine Culture - Final Complete 05/29/24 21:15 Sputum Gram Stain - Final Complete 05/29/24 21:15 Respiratory Culture - Final Acinetobacter baumannii Complete 05/29/24 19:38 Blood Blood Culture - Preliminary NO GROWTH AFTER 72 HOURS OF INCUBATION. Resulted Labs and/or images reviewed: Labs reviewed by me, Image(s) reviewed by me Assessment/Plan Assessment/Plan Impression: -acute hypoxic respiratory failure -mechanical ventilation -community-acquired pneumonia with Acinetobacter baumannii -acute on chronic systolic heart failure with ejection fraction approximately 5% -sinus bradycardia -recent history of UTI with ESBL -acute kidney injury, vasomotor nephropathy -sepsis -hyponatremia -severe protein malnutrition Plan: Events: Patient with decreased norepinephrine requirements. FiO2 at 30%. -continue current ventilator settings, sedation weaned, CPAP trial once appropriate. Continue per pulmonology -continue dopamine at 2.5 micrograms/kilogram per minute -attempt to wean norepinephrine drip -tube feeding as tolerated -continue antibiotic therapy with Zyvox, -continue fluid restriction -repeat labs, chest, x-ray, ABG in a.m. Critical care time spent with patient discussing and formulating plan of care: 40 minutes. This does not include time spent performing procedures. This medical document was created using an electronic medical record system with [employer] dictation system. Although this document has been carefully reviewed, there may still be some phonetic and typographical errors. These areas are purely typographical due to imperfections of the software programs, and do not reflect any compromise in the patient's medical care. Plan discussed with: Patient, Other (RN) My Orders Orders - BRITANY BALDERAS GUIDE CHANGER Procedure Category Date Status Time Cpap Trial For Am ORDERS 06/02/24 Transmitted 12:29 Dopamine 1600mcg/Ml PHA 06/02/24 In Process D5W 13:00 Cpap Trial For Am ORDERS 06/03/24 Transmitted 04:00 Basic Metabolic Panel LAB 06/04/24 Verified 04:00 Magnesium LAB 06/04/24 Verified 04:00 Chest Portable XY 06/04/24 Logged 04:00 Abg W/ Co-Ox RT 06/04/24 Logged 04:00 Date of Service: Jun 03, 2024 Billing Provider: BRITANY BALDERAS NP Common Visit Codes: [id number] CARE 30-74 MIN BRITANY BALDERAS NP Jun 03, 2024 07:24
--- NOTE | 2024-06-03 08:55 | DVHPN2 ---
Progress Note Date Seen: Jun 03, 2024 Has the PT tested + for MRSA If YES, has PT been informed?: No Medical Necessity Reason Pt with a Central, PICC or Fol: Yes Subjective Other Systems: on low dose dopamine HR 70s levophed needs are down Objective vital signs Vital Sign Date Time Temp Pulse Resp B/P (MAP) Pulse Ox O2 Delivery O2 Flow Rate FiO2 06/03/24 06:45 98.6 72 20 103/47 (65) 99 209.5 06/03/24 06:01 30 06/03/24 06:00 Mechanical Ventilator+ Total Intake and Output 06/02/24 06/02/24 06/03/24 15:00 23:00 07:00 Intake Total 409.983 ml 182.301 ml 585.562 ml Output Total 550 ml 500 ml Balance 409.983 ml -367.699 ml 85.562 ml medications Current Medications Medications Dose Ordered Sig/Elpidio Route Start Time Stop Time Status Last Admin Dose Admin Atorvastatin Calcium 10 mg HS PO 05/30/24 22:00 06/02/24 21:54 10 MG Albuterol 2.5 mg Q6HPRN PRN NEB 05/29/24 22:30 Ondansetron HCl 4 mg Q4HP PRN IV 05/29/24 22:30 Acetaminophen 650 mg Q6HP PRN PO 05/29/24 22:30 Nitroglycerin 0.4 mg Q5MINP PRN SL 05/29/24 22:30 Morphine Sulfate 2 mg Q30M PRN IV 05/29/24 22:30 Midazolam HCl 50 ml @ 1 mls/hr Q24H IV 05/29/24 22:30 05/30/24 15:27 5 MLS/HR Aspirin 81 mg DAILY PO 05/30/24 10:00 06/02/24 16:38 81 MG Fentanyl Citrate 250 ml @ 2.5 mls/hr Q24H IV 05/30/24 11:30 05/30/24 18:41 2.5 MLS/HR Norepinephrine Bitartrate 32 mg/ Sodium Chloride 250 ml @ 0.469 mls/ hr Q24H IV 05/30/24 19:45 06/02/24 22:05 2.344 MLS/HR Linezolid 300 ml @ 150 mls/hr Q12H IV 06/01/24 01:00 06/03/24 01:53 150 MLS/HR Enteral Nutritional Formula 1,000 ml 30ML/HR GT 05/31/24 17:15 Meropenem 50 ml @ 17 mls/hr Q12HR IV 06/02/24 10:00 06/02/24 21:54 17 MLS/HR Dopamine HCl/ Dextrose 250 ml @ 7.022 mls/ hr Q24H IV 06/02/24 13:00 06/02/24 13:46 7.022 MLS/HR Examination: GENERAL:Abnormal, HEENT:Abnormal, LUNGS:Abnormal, CVS:Abnormal, ABDOMEN:Abnormal laboratory and microbiology Laboratory Tests 06/03/24 03:40 Test 06/03/24 03:40 Range/Units Serum Glucose 135 H 74-106 mg/dL Microbiology Date/Time Source Procedure Growth Status 05/30/24 16:37 Stool Clostridium difficile Toxin Assay - Final Complete 05/30/24 03:15 Nose MRSA Screen - Final Complete 05/29/24 22:31 Urine - [place] Urine Culture - Final Complete 05/29/24 21:15 Sputum Gram Stain - Final Complete 05/29/24 21:15 Respiratory Culture - Final Acinetobacter baumannii Complete 05/29/24 19:38 Blood Blood Culture - Preliminary NO GROWTH AFTER 72 HOURS OF INCUBATION. Resulted Problem List/Assessment/Plan Problem List/Assessment/Plan end stage HF ckd HTN bradycardia recent nstemi cont pressors , can wean down as feasible low dose dopamine as needed--started and has helped hemodynamics wean off levophed cont diuretics cpap daily for exercise poor prognosis--consider goals of care if pt gets extubated/ Plan discussed with: Other (n) Dietary Evaluation Review Comments: 1) If GI is preferred route consider Jevity 1.2 @ 70 ml/hr goal rate as tolerated 2) If pt remains NPO >7days consider TPN to meet at least 75% of estimated needs 3) Advance pt diet to a Renal Specific K2,low phos,MILLER,2gmNa,50gPro diet 3) Continue current plan of care Expected Outcomes/Goals: 1) Pt to receive adequate nutrition support with 72 hrs of NPO status 2) Pt diet to advance 3) F/U in 2-3 days Date of Service: Jun 03, 2024 Billing Provider: ASHLEIGH MANZO MD Common Visit Codes: NOT BILLABLE ASHLEIGH MANZO MD Jun 03, 2024 08:55
[2024-06-03 11:25] LABS: Base Excess 5.9 mmol/L (-2.0-3.0)
--- NOTE | 2024-06-03 20:53 | DVHPN2 ---
Progress Note Date Seen: Jun 03, 2024 Has the PT tested + for MRSA If YES, has PT been informed?: No Medical Necessity Reason Pt with a Central, PICC or Fol: Yes Subjective Patient reports: Other Review of Systems: Deferred Objective vital signs Vital Sign Date Time Temp Pulse Resp B/P (MAP) Pulse Ox O2 Delivery O2 Flow Rate FiO2 06/03/24 20:05 78 25 96/45 (62) 99 30 06/03/24 20:00 Mechanical Ventilator+ 06/03/24 18:00 99.9 211.8 Total Intake and Output 06/02/24 06/02/24 06/03/24 15:00 23:00 07:00 Intake Total 409.983 ml 182.301 ml 594.928 ml Output Total 550 ml 500 ml Balance 409.983 ml -367.699 ml 94.928 ml medications Current Medications Medications Dose Ordered Sig/Elpidio Route Start Time Stop Time Status Last Admin Dose Admin Atorvastatin Calcium 10 mg HS PO 05/30/24 22:00 06/02/24 21:54 10 MG Albuterol 2.5 mg Q6HPRN PRN NEB 05/29/24 22:30 Ondansetron HCl 4 mg Q4HP PRN IV 05/29/24 22:30 Acetaminophen 650 mg Q6HP PRN PO 05/29/24 22:30 Nitroglycerin 0.4 mg Q5MINP PRN SL 05/29/24 22:30 Morphine Sulfate 2 mg Q30M PRN IV 05/29/24 22:30 Midazolam HCl 50 ml @ 1 mls/hr Q24H IV 05/29/24 22:30 05/30/24 15:27 5 MLS/HR Aspirin 81 mg DAILY PO 05/30/24 10:00 06/03/24 09:53 81 MG Fentanyl Citrate 250 ml @ 2.5 mls/hr Q24H IV 05/30/24 11:30 05/30/24 18:41 2.5 MLS/HR Norepinephrine Bitartrate 32 mg/ Sodium Chloride 250 ml @ 0.469 mls/ hr Q24H IV 05/30/24 19:45 06/02/24 22:05 2.344 MLS/HR Linezolid 300 ml @ 150 mls/hr Q12H IV 06/01/24 01:00 06/03/24 13:18 150 MLS/HR Enteral Nutritional Formula 1,000 ml 30ML/HR GT 05/31/24 17:15 Meropenem 50 ml @ 17 mls/hr Q12HR IV 06/02/24 10:00 06/03/24 09:53 17 MLS/HR Dopamine HCl/ Dextrose 250 ml @ 7.022 mls/ hr Q24H IV 06/02/24 13:00 06/02/24 13:46 7.022 MLS/HR Examination: GENERAL:Abnormal, LUNGS:Abnormal, SKIN:Abnormal, NEURO:Abnormal laboratory and microbiology Laboratory Tests 06/03/24 03:40 Test 06/03/24 03:40 Range/Units Serum Glucose 135 H 74-106 mg/dL Microbiology Date/Time Source Procedure Growth Status 05/30/24 16:37 Stool Clostridium difficile Toxin Assay - Final Complete 05/30/24 03:15 Nose MRSA Screen - Final Complete 05/29/24 22:31 Urine - [place] Urine Culture - Final Complete 05/29/24 21:15 Sputum Gram Stain - Final Complete 05/29/24 21:15 Respiratory Culture - Final Acinetobacter baumannii Complete 05/29/24 19:38 Blood Blood Culture - Final NO GROWTH AFTER 5 DAYS OF INCUBATION. Complete Problem List/Assessment/Plan Problem List/Assessment/Plan Acute kidney injury superimposed Chronic Kidney Disease secondary hemodynamic mediated, creatinine was 1.2 on 05/21/2024 Vancomycin nephrotoxicity Acute on chronic Congestive heart failure exacerbation EF 6 to 7 Acute respiratory failure, intubated on ventilator Hypernatremia due to dehydration Metabolic acidosis, resolved Dilated cardiomyopathy Diabetes mellitus type 2 NSTEMI Dementia Hypoalbuminemia Kidney stones, nonobstructing Recommendations Free water as ordered for sodium correction Severely low ejection fraction mix all drips in d5w iv instead of NS Plan discussed with: Other Dietary Evaluation Review Comments: 1) If GI is preferred route consider Jevity 1.2 @ 70 ml/hr goal rate as tolerated 2) If pt remains NPO >7days consider TPN to meet at least 75% of estimated needs 3) Advance pt diet to a Renal Specific K2,low phos,MILLER,2gmNa,50gPro diet 3) Continue current plan of care Expected Outcomes/Goals: 1) Pt to receive adequate nutrition support with 72 hrs of NPO status 2) Pt diet to advance 3) F/U in 2-3 days CHERYL KNOWLES MD Jun 03, 2024 20:53
--- NOTE | 2024-06-03 23:06 | DVHPN2 ---
Progress Note - Dictate Date Seen: Jun 03, 2024 Has the PT tested + for MRSA If YES, has PT been informed?: No Medical Necessity Reason Pt with a Central, PICC or Fol: Yes The following are medically ne: Mays Catheter Reason for mays catheter: Strict I&O Subjective Patient seen and examined at bedside. On mechanical ventilation Overnight events reviewed vital signs Vital Sign Date Time Temp Pulse Resp B/P (MAP) Pulse Ox O2 Delivery O2 Flow Rate FiO2 06/03/24 22:18 99.5 78 20 107/43 (64) 100 211.1 06/03/24 22:15 30 06/03/24 22:00 Mechanical Ventilator+ Total Intake and Output 06/02/24 06/02/24 06/03/24 15:00 23:00 07:00 Intake Total 409.983 ml 182.301 ml 594.928 ml Output Total 550 ml 500 ml Balance 409.983 ml -367.699 ml 94.928 ml medications Current Medications Medications Dose Ordered Sig/Elpidio Route Start Time Stop Time Status Last Admin Dose Admin Atorvastatin Calcium 10 mg HS PO 05/30/24 22:00 06/03/24 22:04 10 MG Albuterol 2.5 mg Q6HPRN PRN NEB 05/29/24 22:30 Ondansetron HCl 4 mg Q4HP PRN IV 05/29/24 22:30 Acetaminophen 650 mg Q6HP PRN PO 05/29/24 22:30 Nitroglycerin 0.4 mg Q5MINP PRN SL 05/29/24 22:30 Morphine Sulfate 2 mg Q30M PRN IV 05/29/24 22:30 Midazolam HCl 50 ml @ 1 mls/hr Q24H IV 05/29/24 22:30 05/30/24 15:27 5 MLS/HR Aspirin 81 mg DAILY PO 05/30/24 10:00 06/03/24 09:53 81 MG Fentanyl Citrate 250 ml @ 2.5 mls/hr Q24H IV 05/30/24 11:30 05/30/24 18:41 2.5 MLS/HR Norepinephrine Bitartrate 32 mg/ Sodium Chloride 250 ml @ 0.469 mls/ hr Q24H IV 05/30/24 19:45 06/02/24 22:05 2.344 MLS/HR Linezolid 300 ml @ 150 mls/hr Q12H IV 06/01/24 01:00 06/03/24 13:18 150 MLS/HR Enteral Nutritional Formula 1,000 ml 30ML/HR GT 05/31/24 17:15 Meropenem 50 ml @ 17 mls/hr Q12HR IV 06/02/24 10:00 06/03/24 22:04 17 MLS/HR Dopamine HCl/ Dextrose 250 ml @ 7.022 mls/ hr Q24H IV 06/02/24 13:00 06/02/24 13:46 7.022 MLS/HR objective Gen.: Patient lying in bed in medical ICU. Sedated, intubated on mechanical ventilator. Head: Normocephalic, atraumatic. Eyes: PERRLA. Ears: Normal external anatomy. Throat: Endotracheal tube and orogastric tube in place. Neck: Supple, trachea midline. Chest: Transmitted breath sounds bilaterally. Decreased air entry bilaterally. No wheezing. Bibasilar crackles. Cardio vascular: Positive S1, positive S2. Regular rate and rhythm. Abdomen: Positive bowel sounds in all 4 quadrants. Soft, nontender, nondistended. : Mays in place. Normal external genitalia. Rectal: Deferred Skin: Warm, dry. Intact. Extremities: 2+ radial pulses bilaterally. No lower extremity edema. Neuro: Sedated. laboratory and microbiology Laboratory Tests 06/03/24 03:40 Test 06/03/24 03:40 Range/Units Serum Glucose 135 H 74-106 mg/dL Assessment/Plan Impression: Acute hypoxic respiratory failure On mechanical ventilator Pneumonia with Acinetobacter baumannii Acute on chronic systolic heart failure with ejection fraction of 5% UTI with ESBL Acute kidney injury Sepsis Hypernatremia Severe protein malnutrition Events: Remains on vent support On AC mode with respiratory rate of 20, tidal volume 450, PEEP of 5, FiO2 of 30%. Taper FiO2 as tolerated On pressors for hemodynamic support. On Levophed 2.7 mcg/min Titrate to keep MAP above 65 mmHg/SBP above 90 mmHg. On Dopamine drip, renally dosed at 2.5 mcg Tube feeds for nutritional support CPAP trial 3 hours - patient tolerated Continue antibiotics Labs and imaging reviewed. Rest of plan as noted below. Plan: s/p intubation on mechanical ventilator CXR image and report reviewed. Devices in place. Mild pulmonary vascular congestion. ABG reviewed. Compensated On AC mode with respiratory rate of 20, tidal volume 450, PEEP of 5, FiO2 of 30%. Titrate FIO2 to keep O2 saturation above 92%. VAP bundle Daily ABG and CXR while intubated. Sedate for ventilatory synchrony - currently off CPAP trial with pressure support of 8, PEEP of 5 in the a.m. if remains on FiO2 45% or less and PEEP of 8 cm of water or less. Okay to increase pressure support max of 20 cm of water to achieve tidal volumes of 400-450 Currently on CPAP with PS 10, Peep 5 Pulling in volumes of 400-450mL RR [address] back on full support overnight We can reattempt CPAP in AM On pressors for hemodynamic support. Titrate to keep MAP above 65 mmHg/SBP above 90 mmHg. On Dopamine drip, renally dosed at 2.5 mcg Continue antibiotics. F/u cultures. Sputum notable For Acinetobacter baumanii Leukocytosis Monitor WBC count Monitor renal function due to Acute kidney injury. Monitor electrolytes. Supplement as necessary. Nutritional support. Accucheks, ISS. GI/DVT prophylaxis. Condition: Critical Prognosis: Poor given multiple comorbidities. Rest of plan per hospitalist and other consultants. A total of 35 minutes of critical care time was spent reviewing the patient record, examining the patient, making a diagnostic and therapeutic plan, discussing this plan with the medical personnel, following up on diagnostic studies and following the patient for clinical stability excluding any and all procedures. At least 50% of this time was spent in direct, [id number] contact. Thank you AMEENA Murphy for allowing me to participate in this patient's care. Further recommendations will depend on patient's clinical course. Please do not hesitate to contact me if you have any questions or concerns. This medical document was created using an electronic medical record system with [employer] system. Although this document has been carefully reviewed, there may still be some phonetic and typographical errors. These areas are purely typographical due to imperfections of the software programs, and do not reflect any compromise in the patient's medical care. Dietary Evaluation Review Comments: 1) If GI is preferred route consider Jevity 1.2 @ 70 ml/hr goal rate as tolerated 2) If pt remains NPO >7days consider TPN to meet at least 75% of estimated needs 3) Advance pt diet to a Renal Specific K2,low phos,MILLER,2gmNa,50gPro diet 3) Continue current plan of care Expected Outcomes/Goals: 1) Pt to receive adequate nutrition support with 72 hrs of NPO status 2) Pt diet to advance 3) F/U in 2-3 days Plan discussed with: Other (PIERO Hemphill) Critical Care Time(min): 35 MODE MACKEY MD Jun 03, 2024 23:06
[2024-06-04] VITALS (105 sets, daily range): BP systolic 86–185; BP diastolic 27–138; PULSE 65–117; RESP 9–41; TEMP 97.7–99.5; O2SAT 86–100
[2024-06-04] MEDS: MORPHINE SULFATE INJ 2 MG/ml SYRG IV PRN (01:25)
[2024-06-04 05:05] LABS: Chloride 120 mmol/L (98-107); Potassium 3.8 mmol/L (3.5-5.1); Sodium 154 mmol/L (136-145)
[2024-06-04 05:06] LABS: Anion Gap 4 (5-15); Carbon Dioxide 30 mmol/L (20-31)
[2024-06-04 05:11] LABS: Blood Urea Nitrogen 36 mg/dL (9-23); Glucose 107 mg/dL (74-106); Magnesium 2.5 mg/dL (1.6-2.6)
--- NOTE | 2024-06-04 05:45 | DVH ---
CHEST RADIOGRAPH Indication:CHF, PNA Technique: Single frontal view of the chest was obtained COMPARISON: XY CHEST XRAY 1 VIEW on DOS: 06/02/24, XY CHEST XRAY 1 VIEW on DOS: 06/01/24, XY CHEST XR AY 1 VIEW on DOS: 05/31/24, XY CHEST XRAY 1 VIEW on DOS: 06/02/24 FINDINGS: Lines and Tubes: Endotracheal tube, enteric catheter and right central venous catheter in satisfactor y position Lungs: Mild congestion Pleura: No effusion. No pneumothorax. Cardiomediastinal contours: Unremarkable Bones: Unremarkable IMPRESSION: Lines and tubes in satisfactory position. No significant interval change.
[2024-06-04 08:09] LABS: Base Excess 6.1 mmol/L (-2.0-3.0)
--- NOTE | 2024-06-04 08:55 | DVHPN2 ---
Progress Note Date Seen: Jun 04, 2024 Has the PT tested + for MRSA If YES, has PT been informed?: No Medical Necessity Reason Pt with a Central, PICC or Fol: Yes The following are medically ne: Mays Catheter Reason for mays catheter: Strict I&O Objective vital signs Vital Sign Date Time Temp Pulse Resp B/P (MAP) Pulse Ox O2 Delivery O2 Flow Rate FiO2 06/04/24 06:45 78 20 125/57 (79) 100 06/04/24 06:00 Mechanical Ventilator+ 30 30 06/04/24 06:00 98.5 98.5 Total Intake and Output 06/03/24 06/03/24 06/04/24 15:00 23:00 07:00 Intake Total 422.583 ml 226.488 ml 627.188 ml Output Total 350 ml 375 ml Balance 422.583 ml -123.512 ml 252.188 ml medications Current Medications Medications Dose Ordered Sig/Elpidio Route Start Time Stop Time Status Last Admin Dose Admin Atorvastatin Calcium 10 mg HS PO 05/30/24 22:00 06/03/24 22:04 10 MG Albuterol 2.5 mg Q6HPRN PRN NEB 05/29/24 22:30 Ondansetron HCl 4 mg Q4HP PRN IV 05/29/24 22:30 Acetaminophen 650 mg Q6HP PRN PO 05/29/24 22:30 Nitroglycerin 0.4 mg Q5MINP PRN SL 05/29/24 22:30 Morphine Sulfate 2 mg Q30M PRN IV 05/29/24 22:30 06/04/24 01:25 2 MG Midazolam HCl 50 ml @ 1 mls/hr Q24H IV 05/29/24 22:30 05/30/24 15:27 5 MLS/HR Aspirin 81 mg DAILY PO 05/30/24 10:00 06/03/24 09:53 81 MG Fentanyl Citrate 250 ml @ 2.5 mls/hr Q24H IV 05/30/24 11:30 05/30/24 18:41 2.5 MLS/HR Norepinephrine Bitartrate 32 mg/ Sodium Chloride 250 ml @ 0.469 mls/ hr Q24H IV 05/30/24 19:45 06/04/24 04:28 0.938 MLS/HR Linezolid 300 ml @ 150 mls/hr Q12H IV 06/01/24 01:00 06/04/24 01:25 150 MLS/HR Enteral Nutritional Formula 1,000 ml 30ML/HR GT 05/31/24 17:15 Meropenem 50 ml @ 17 mls/hr Q12HR IV 06/02/24 10:00 06/03/24 22:04 17 MLS/HR Dopamine HCl/ Dextrose 250 ml @ 7.022 mls/ hr Q24H IV 06/02/24 13:00 06/04/24 01:37 7.022 MLS/HR laboratory and microbiology Laboratory Tests 06/04/24 04:43 06/03/24 03:40 Test 06/04/24 04:43 Range/Units Serum Glucose 107 H 74-106 mg/dL Microbiology Date/Time Source Procedure Growth Status 05/30/24 16:37 Stool Clostridium difficile Toxin Assay - Final Complete 05/30/24 03:15 Nose MRSA Screen - Final Complete 05/29/24 22:31 Urine - Mays Port Urine Culture - Final Complete 05/29/24 21:15 Sputum Gram Stain - Final Complete 05/29/24 21:15 Respiratory Culture - Final Acinetobacter baumannii Complete 05/29/24 19:38 Blood Blood Culture - Final NO GROWTH AFTER 5 DAYS OF INCUBATION. Complete Problem List/Assessment/Plan Problem List/Assessment/Plan end stage HF ckd HTN bradycardia recent nstemi cont pressors , can wean down as feasible low dose dopamine as needed--started and has helped hemodynamics wean off levophed cont diuretics cpap daily for exercise poor prognosis--consider goals of care if pt gets extubated/ extubated today cont diuretics wean off dopamine Plan discussed with: Patient (rn) Dietary Evaluation Review Comments: 1) If GI is preferred route consider Jevity 1.2 @ 70 ml/hr goal rate as tolerated 2) If pt remains NPO >7days consider TPN to meet at least 75% of estimated needs 3) Advance pt diet to a Renal Specific K2,low phos,MILLER,2gmNa,50gPro diet 3) Continue current plan of care Expected Outcomes/Goals: 1) Pt to receive adequate nutrition support with 72 hrs of NPO status 2) Pt diet to advance 3) F/U in 2-3 days Date of Service: Jun 04, 2024 Billing Provider: ASHLEIGH MANZO MD Common Visit Codes: NOT BILLABLE ASHLEIGH MANZO MD Jun 04, 2024 08:55
--- NOTE | 2024-06-04 11:47 | DVHPN2 ---
Progress Note Date Seen: Jun 04, 2024 Has the PT tested + for MRSA If YES, has PT been informed?: No Medical Necessity Reason Pt with a Central, PICC or Fol: Yes The following are medically ne: Mays Catheter Reason for mays catheter: Strict I&O Subjective Review of Systems: RESPIRATORY:Abnormal Other Systems: Patient seen and examined by myself today in follow-up Patient remained intubated on ventilator Objective vital signs Vital Sign Date Time Temp Pulse Resp B/P (MAP) Pulse Ox O2 Delivery O2 Flow Rate FiO2 06/04/24 07:58 99 8.0 06/04/24 07:55 22 06/04/24 06:45 78 125/57 (79) 06/04/24 06:00 Mechanical Ventilator+ 30 30 06/04/24 06:00 98.5 98.5 Total Intake and Output 06/03/24 06/03/24 06/04/24 14:59 22:59 06:59 Intake Total 423.521 ml 226.488 ml 635.616 ml Output Total 350 ml 375 ml Balance 423.521 ml -123.512 ml 260.616 ml medications Current Medications Medications Dose Ordered Sig/Elpidio Route Start Time Stop Time Status Last Admin Dose Admin Atorvastatin Calcium 10 mg HS PO 05/30/24 22:00 06/03/24 22:04 10 MG Albuterol 2.5 mg Q6HPRN PRN NEB 05/29/24 22:30 Ondansetron HCl 4 mg Q4HP PRN IV 05/29/24 22:30 Acetaminophen 650 mg Q6HP PRN PO 05/29/24 22:30 Nitroglycerin 0.4 mg Q5MINP PRN SL 05/29/24 22:30 Morphine Sulfate 2 mg Q30M PRN IV 05/29/24 22:30 06/04/24 01:25 2 MG Midazolam HCl 50 ml @ 1 mls/hr Q24H IV 05/29/24 22:30 05/30/24 15:27 5 MLS/HR Aspirin 81 mg DAILY PO 05/30/24 10:00 06/03/24 09:53 81 MG Fentanyl Citrate 250 ml @ 2.5 mls/hr Q24H IV 05/30/24 11:30 05/30/24 18:41 2.5 MLS/HR Norepinephrine Bitartrate 32 mg/ Sodium Chloride 250 ml @ 0.469 mls/ hr Q24H IV 05/30/24 19:45 06/04/24 04:28 0.938 MLS/HR Linezolid 300 ml @ 150 mls/hr Q12H IV 06/01/24 01:00 06/04/24 01:25 150 MLS/HR Enteral Nutritional Formula 1,000 ml 30ML/HR GT 05/31/24 17:15 Meropenem 50 ml @ 17 mls/hr Q12HR IV 06/02/24 10:00 06/04/24 09:08 17 MLS/HR Dopamine HCl/ Dextrose 250 ml @ 7.022 mls/ hr Q24H IV 06/02/24 13:00 06/04/24 01:37 7.022 MLS/HR Examination: LUNGS:Normal, CVS:Normal, MSK:Normal laboratory and microbiology Laboratory Tests 06/04/24 04:43 06/03/24 03:40 Test 06/04/24 04:43 Range/Units Serum Glucose 107 H 74-106 mg/dL Microbiology Date/Time Source Procedure Growth Status 05/30/24 16:37 Stool Clostridium difficile Toxin Assay - Final Complete 05/30/24 03:15 Nose MRSA Screen - Final Complete 05/29/24 22:31 Urine - Mays Port Urine Culture - Final Complete 05/29/24 21:15 Sputum Gram Stain - Final Complete 05/29/24 21:15 Respiratory Culture - Final Acinetobacter baumannii Complete 05/29/24 19:38 Blood Blood Culture - Final NO GROWTH AFTER 5 DAYS OF INCUBATION. Complete Problem List/Assessment/Plan Problem List/Assessment/Plan Acute kidney injury superimposed Chronic Kidney Disease secondary hemodynamic mediated, creatinine was 1.2 on 05/21/2024 Vancomycin nephrotoxicity Acute respiratory failure, intubated on ventilator Metabolic acidosis, resolved Dilated cardiomyopathy Diabetes mellitus type 2 NSTEMI Dementia Hypoalbuminemia Kidney stones, nonobstructing Hypernatremia due to insensible water loss Recommendations Kidney function is improving Increased urine output Mays catheter Strict I&Os IVF D5W 120 cc/hour Discontinue vancomycin kidney ultrasound nonobstructing kidney stone IV dobutamine Insulin SS Cardiology consult Urology consult We will continue to follow Plan discussed with: Other (Nurse) My Orders My Orders Orders - INDERJIT WESTBROOK MD Procedure Category Date Status Time D5w 5% PHA 06/04/24 Verified 11:45 Dietary Evaluation Review Comments: 1) If GI is preferred route consider Jevity 1.2 @ 70 ml/hr goal rate as tolerated 2) If pt remains NPO >7days consider TPN to meet at least 75% of estimated needs 3) Advance pt diet to a Renal Specific K2,low phos,MILLER,2gmNa,50gPro diet 3) Continue current plan of care Expected Outcomes/Goals: 1) Pt to receive adequate nutrition support with 72 hrs of NPO status 2) Pt diet to advance 3) F/U in 2-3 days INDERJIT WESTBROOK MD Jun 04, 2024 11:47
[2024-06-04] MEDS: D5W 5% 1,000 ML IV SCH ×2 (12:00→18:34)
--- NOTE | 2024-06-04 13:53 | CONS ---
Pharmacy Clinical Information: From Concurrent Heart Failure Report, Ricardo Ly is a 83 year old male with PMH of dementia, HTN, NM, CVA, CKD, and CHF (LVEF 5%). Recommend to continue holding the initiation of BB, MRA, SGTL2i, or ACEi/ARB/ARNi until patient is hemodynamically stable and renal function stabilizes. AMBER BAKER PHARMACIST Jun 04, 2024 13:53
[2024-06-04] MEDS: PANTOPRAZOLE 40 MG TAB PO ONE (18:00)
--- NOTE | 2024-06-04 18:32 | DVHPNRES ---
Progress Note Date Seen: Jun 04, 2024 Resident Creating Document: MARY ANN PAT RESIDENT Has the PT tested + for MRSA If YES, has PT been informed?: No Medical Necessity Reason Pt with a Central, PICC or Fol: Yes The following are medically ne: Mays Catheter Reason for mays catheter: Strict I&O Subjective Review of Systems HPI: 83/male, past medical history: Heart failure reduced ejection fraction 5%, CKD, cardiogenic shock, UTI, CVA, dementia, hypertension Patient is 83-year-old male who brought to the hospital via EMS for altered level of consciousness from [facility]. Patient was recently hospitalized for cardiogenic shock and sent to long term [facility] for treatment of UTI secondary to E coli ESBL treated with ertapenem IV. During stay at long term [facility], patient was confused, altered that listed patient was brought to the emergency department for evaluation. With further evaluation, patient was intubated by ER provider to protect airway on admission day 05/30/2024. Hospital course: Patient was intubated with mechanical ventilation volume control. Treated with IV antibiotic meropenem, vancomycin, vasopressors including Levophed and dobutamine initially. Respiratory culture was done which came positive for Acinetobacter baumannii sensitive to meropenem. Patient continued on antibiotic. Over the course of hospitalization patient's FiO2 requirement reduce to 45 %. Patient continued to have clear lungs without accessory oxygen requirement. WBC count significantly improved over the course of hospitalization as well with kidney function improvement as well. Extubated today on 06/04/2024. ABG: Metabolic alkalosis: PH 7.45, pCO2 46.5, PO2 74.5, HC03 31.2. Chest x-ray: Bilateral lungs clear lungs clear, no signs of pulmonary vascular congestion. Ventilator setting initially: Respiratory rate 18, tidal volume 450, FiO2 30%, peep 5 cm H2O Patient seen and examined at bedside. Initially patient was intubated, patient underwent CPAP trial, negative inspiratory force -22, RSBI 45. Patient passed CPAP trial and successfully underwent extubation. Currently patient is on 2-3 L oxygen via nasal cannula saturating 97-95%. No complaints from patient. Objective vital signs Vital Sign Date Time Temp Pulse Resp B/P (MAP) Pulse Ox O2 Delivery O2 Flow Rate FiO2 06/04/24 16:00 19 97 Nasal Cannula* 2 35 Oxymizer 35 10/21/24 08:00 101 06/04/24 06:45 125/57 (79) 06/04/24 06:00 98.5 98.5 Total Intake and Output 06/03/24 06/03/24 06/04/24 15:00 23:00 07:00 Intake Total 422.583 ml 226.488 ml 635.126 ml Output Total 350 ml 375 ml Balance 422.583 ml -123.512 ml 260.126 ml medications Current Medications Medications Dose Ordered Sig/Elpidio Route Start Time Stop Time Status Last Admin Dose Admin Atorvastatin Calcium 10 mg HS PO 05/30/24 22:00 06/03/24 22:04 10 MG Albuterol 2.5 mg Q6HPRN PRN NEB 05/29/24 22:30 Ondansetron HCl 4 mg Q4HP PRN IV 05/29/24 22:30 Acetaminophen 650 mg Q6HP PRN PO 05/29/24 22:30 Nitroglycerin 0.4 mg Q5MINP PRN SL 05/29/24 22:30 Morphine Sulfate 2 mg Q30M PRN IV 05/29/24 22:30 06/04/24 01:25 2 MG Aspirin 81 mg DAILY PO 05/30/24 10:00 06/03/24 09:53 81 MG Norepinephrine Bitartrate 32 mg/ Sodium Chloride 250 ml @ 0.469 mls/ hr Q24H IV 05/30/24 19:45 06/04/24 04:28 0.938 MLS/HR Linezolid 300 ml @ 150 mls/hr Q12H IV 06/01/24 01:00 06/04/24 13:40 150 MLS/HR Enteral Nutritional Formula 1,000 ml 30ML/HR GT 05/31/24 17:15 Meropenem 50 ml @ 17 mls/hr Q12HR IV 06/02/24 10:00 06/04/24 09:08 17 MLS/HR Dopamine HCl/ Dextrose 250 ml @ 7.022 mls/ hr Q24H IV 06/02/24 13:00 06/04/24 01:37 7.022 MLS/HR Dextrose 1,000 ml @ 60 mls/hr [id number] IV 06/04/24 13:30 Purified Water 200 ml Q6HR GT 06/04/24 18:00 Examination General Appearance: Cooperative. Well developed. Well nourished. NAD Head Exam: Normal inspection Neck Exam: Normal inspection. Non-tender. Normal alignment Pulmonary/Respiratory: Chest non-tender. Clear bilateral breath sounds Cardiovascular/Chest: Regular rate and rhythm. No murmurs. No JVD. Peripheral Pulses: 2+ Radial (R). 2+ Radial (L). 2+ Pedal (R). 2+ Pedal (L) Abdominal Exam: Normal bowel sounds. Soft. Nontender. No hepatospenomegaly. No masses Ankle Exam: Negative ankle edema Lower extremities: Negative lower extremity edema Neuro/Mental Status: A&O x 2 laboratory and microbiology Laboratory Tests 06/04/24 04:43 06/03/24 03:40 Test 06/04/24 04:43 Range/Units Serum Glucose 107 H 74-106 mg/dL Microbiology Date/Time Source Procedure Growth Status 06/03/24 16:46 Urine - Mays Port Urine Culture - Preliminary Resulted 05/30/24 16:37 Stool Clostridium difficile Toxin Assay - Final Complete 05/30/24 03:15 Nose MRSA Screen - Final Complete 05/29/24 21:15 Sputum Gram Stain - Final Complete 05/29/24 21:15 Respiratory Culture - Final Acinetobacter baumannii Complete 05/29/24 19:38 Blood Blood Culture - Final NO GROWTH AFTER 5 DAYS OF INCUBATION. Complete Problem List/Assessment/Plan Problem List/Assessment/Plan Neurology Acute metabolic encephalopathy likely due to sepsis -initially patient was altered, after extubation patient is alert oriented to time, and place. -continue to monitor Altered mental status likely due to above: Improving -AOA*2 History of dementia History of CVA -resume aspirin, atorvastatin Off sedation Respiratory Acute hypoxic respiratory failure due to ARDS/CHF exacerbation -extubated, currently on 2-3 L via nasal cannula -repeat chest x-ray in a.m. Cardiology/Infectious Septic shock due to pneumonia due to Acinetobacter -continue IV antibiotic meropenem 1 g q.12, linezolid 600 mg q.12. -dopamine : 5 microgram/kg per minute. -D5W 60 mL/hour -urine culture(05/11/2024): E coli ESBL Acute on chronic systolic heart failure(heart failure reduced ejection fraction, ejection fraction 5%) -we will resume home medication: Lasix -ECHO(05/12/24):lvef 5-7% Cardiogenic shock possible: -vasopressor: norepinephrine 2.34 mcg per kg per minute -repeat chest x-ray in a.m. -resume home medication once patient is hemodynamically stable NSTEMI type 2 likely due to above -troponin 135 on 05/29/2024 non trending. -cardiology on board Bradyarrhythmia -dopamine 2.5 microgram/kg per minute. Nephrology AB due to VMN in setting of CKD: Resolved -creatinine 1.20 -GFR 60 -continue to monitor kidney function Hypernatremia -sodium 154, chloride 120 -start D5W 60 mL/hour -free water 200 mL q.6 Metabolic alkalosis possible in setting of volume contraction -likely due to dehydration. Subject Scientific Research Acute transaminitis -non trending liver enzymes -continue to monitor liver function Endocrinology Hyperglycemia , HGB A1c 5.2 -continue to monitor serum glucose Nutrition Evaluate with swallow test Lines Right subclavian triple-lumen: Placed on 05/29/24 Mays catheter PUD prophylaxis: Protonix DVT prophylaxis: Lovenox Critical care time spent including cpap trial was greater than 84 minutes Plan discussed with Dr. Bates Plan discussed with: Patient, Other (RN) My Orders My Orders Orders - MARY ANN PAT Procedure Category Date Status Time Extubate GIRISH 06/04/24 In Process 08:06 Dietary Evaluation Review Comments: 1) If GI is preferred route consider Jevity 1.2 @ 70 ml/hr goal rate as tolerated 2) If pt remains NPO >7days consider TPN to meet at least 75% of estimated needs 3) Advance pt diet to a Renal Specific K2,low phos,MILLER,2gmNa,50gPro diet 3) Continue current plan of care Expected Outcomes/Goals: 1) Pt to receive adequate nutrition support with 72 hrs of NPO status 2) Pt diet to advance 3) F/U in 2-3 days Date of Service: Jun 04, 2024 Billing Provider: SHARMIN PETERS MD Common Visit Codes: [id number]-[id number] CARE 30-74 MIN, [id number] CARE-EACH +30MIN MARY ANN PAT Jun 04, 2024 18:32 SHARMIN PETERS MD Jun 05, 2024 10:52
[2024-06-04] MEDS: ENOXAPARIN SOD 30 MG/0.3 ML SYRINGE SC ONE (20:13)
--- NOTE | 2024-06-04 20:26 | DVH ---
EXAM: XY CHEST XRAY 1 VIEW TECHNIQUE: Single frontal chest radiograph CLINICAL HISTORY: ngt placement COMPARISON: XY CHEST PORTABLE on DOS: 06/04/24, XY CHEST XRAY 1 VIEW on DOS: 06/02/24, XY CHEST XRAY 1 VIEW on DOS: 06/01/24 Findings/Impression: Frontal chest radiograph demonstrates no acute osseous or superficial soft tissue abnormalities. Enteric tube overlying the plane of the stomach. The trachea is midline. The cardiac silhouette and mediastinum are within normal limits. Marked low lung volumes with bronchovascular crowding and bibasilar atelectasis. No pneumothorax, pleural effusions, or consolidations.
[2024-06-04] MEDS: FREE WATER GT SCH (21:53)
[2024-06-04] MEDS: DOPamine 1600MCG/ML D5W 250 ML IV SCH (21:58)
[2024-06-05] VITALS (57 sets, daily range): BP systolic 106–145; BP diastolic 41–86; PULSE 63–98; RESP 12–39; TEMP 97.7–98.6; O2SAT 89–100
[2024-06-05 03:53] LABS: Basophils # (auto) 0 10 ^3/uL (0-0.2); Basophils % (auto) 0.4 % (0.0-2.0); Eosinophils # (auto) 0.3 10 ^3/uL (0-0.8); Eosinophils % (auto) 3.4 % (0.0-7.0); Hematocrit 39.4 % (41.0-53.0); Hemoglobin 13.3 g/dL (13.5-17.5); Lymphocytes # (auto) 0.6 10 ^3/uL (0.4-5.4); Lymphocytes % (auto) 7.4 % (10.0-50.0); Mean Corpuscular Hemoglobin 33.4 pg (28.0-32.0); Mean Corpuscular Hgb Conc. 33.8 g/dL (32.0-36.0); Mean Corpuscular Volume 98.9 fL (80.0-100.0); Monocytes # (auto) 0.5 10 ^3/uL (0-1.3); Monocytes % (auto) 5.6 % (0.0-12.0); Neutrophils # (auto) 7.2 10 ^3/uL (1.6-8.6); Neutrophils % (auto) 83.2 % (37.0-80.0); Platelet Count (auto) 146 10^3/uL (140-450); Red Blood Cells 3.98 10^6/uL (4.5-5.90); Red Cell Distribution Width 15.6 % (11.8-14.3); White Blood Cell 8.6 10^3/uL (4.4-10.8)
[2024-06-05 04:01] LABS: Alanine Aminotransferase 94 U/L (7-40); Alkaline Phosphatase 241 U/L (46-116); Anion Gap 4 (5-15); BUN/Creatinine Ratio 33.7 (10.0-20.0); Blood Urea Nitrogen 34 mg/dL (9-23); Calcium 8.9 mg/dL (8.7-10.4); Carbon Dioxide 34 mmol/L (20-31); Chloride 114 mmol/L (98-107); Glucose 104 mg/dL (74-106); Potassium 3.6 mmol/L (3.5-5.1); Sodium 152 mmol/L (136-145)
[2024-06-05 04:02] LABS: Aspartate Aminotransferase 140 U/L (13-40); Total Protein 5.9 g/dL (5.7-8.2)
--- NOTE | 2024-06-05 04:48 | DVH ---
CHEST RADIOGRAPH Indication:ng tube verification Technique: Single frontal view of the chest was obtained COMPARISON: XY CHEST XRAY 1 VIEW on DOS: 06/04/24, XY CHEST PORTABLE on DOS: 06/04/24, XY CHEST XRAY 1 VIEW on DOS: 06/02/24 FINDINGS: Lines and Tubes: Enteric catheter and right central venous catheter in satisfactory position. Lungs: Congestion and low lung volumes. Pleura: No effusion. No pneumothorax. Cardiomediastinal contours: Unremarkable Bones: Unremarkable IMPRESSION: Enteric catheter in satisfactory position.
[2024-06-05] MEDS: PANTOPRAZOLE 40 MG TAB PO SCH (05:54)
--- NOTE | 2024-06-05 07:39 | DVHPNRES ---
Progress Note Date Seen: Jun 05, 2024 Resident Creating Document: MARY ANN PAT RESIDENT Has the PT tested + for MRSA If YES, has PT been informed?: No Medical Necessity Reason Pt with a Central, PICC or Fol: Yes The following are medically ne: Mays Catheter Reason for mays catheter: Strict I&O Subjective Review of Systems HPI: 83/male, past medical history: Heart failure reduced ejection fraction 5%, CKD, cardiogenic shock, UTI, CVA, dementia, hypertension Patient is 83-year-old male who brought to the hospital via EMS for altered level of consciousness from [facility] [place] [facility]. Patient was recently hospitalized for cardiogenic shock and sent to [facility] for treatment of UTI secondary to E coli ESBL treated with ertapenem IV. During stay at [facility] facility, patient was confused, altered that listed patient was brought to the emergency department for evaluation. With further evaluation, patient was intubated by ER provider to protect airway on admission day 05/30/2024. Hospital course: Patient was intubated with mechanical ventilation volume control. Treated with IV antibiotic meropenem, vancomycin, vasopressors including Levophed and dobutamine initially. Respiratory culture was done which came positive for Acinetobacter baumannii sensitive to meropenem. Patient continued on antibiotic. Over the course of hospitalization patient's FiO2 requirement reduce to 45 %. Patient continued to have clear lungs without accessory oxygen requirement. WBC count significantly improved over the course of hospitalization as well with kidney function improvement as well. Extubated on 06/04/2024. ABG: Metabolic alkalosis: PH 7.45, pCO2 46.5, PO2 74.5, HC03 31.2. Chest x-ray on 06/04/2024 23:00 : Bilateral lungs clear lungs clear, no signs of pulmonary vascular congestion. Off ventilator, Patient seen and examined at bedside. Extubated yesterday. Currently on oxygen cannula saturating 99-100%. Patient is alert and oriented. During shift coordinator, patient pulled off NG tube new NG tube was placed during nighttime. No other night events. Vitals: Pulse 67, respiratory rate 18 to 24, blood pressure 140/63, SpO2 98, on 2 L oxygen via nasal cannula. Medication currently he is getting: IV antibiotic meropenem, linezolid, pressor dopamine at 2.499 mcg/kg/minute, D5W at 60 mL/hour, aspirin, atorvastatin, pantoprazole, Lovenox. Objective vital signs Vital Sign Date Time Temp Pulse Resp B/P (MAP) Pulse Ox O2 Delivery O2 Flow Rate FiO2 06/05/24 07:00 67 29 114/63 (80) 98 06/05/24 06:00 Nasal Cannula* 2 35 Oxymizer 35 06/05/24 04:00 98.0 98.0 Total Intake and Output 06/04/24 06/04/24 06/05/24 15:00 23:00 07:00 Intake Total 608.221 ml 417.700 ml 1039.400 ml Output Total 600 ml 575 ml Balance 608.221 ml -182.300 ml 464.400 ml medications Current Medications Medications Dose Ordered Sig/Elpidio Route Start Time Stop Time Status Last Admin Dose Admin Atorvastatin Calcium 10 mg HS PO 05/30/24 22:00 06/04/24 21:53 10 MG Albuterol 2.5 mg Q6HPRN PRN NEB 05/29/24 22:30 Ondansetron HCl 4 mg Q4HP PRN IV 05/29/24 22:30 Acetaminophen 650 mg Q6HP PRN PO 05/29/24 22:30 Nitroglycerin 0.4 mg Q5MINP PRN SL 05/29/24 22:30 Morphine Sulfate 2 mg Q30M PRN IV 05/29/24 22:30 06/04/24 01:25 2 MG Aspirin 81 mg DAILY PO 05/30/24 10:00 06/03/24 09:53 81 MG Norepinephrine Bitartrate 32 mg/ Sodium Chloride 250 ml @ 0.469 mls/ hr Q24H IV 05/30/24 19:45 06/04/24 04:28 0.938 MLS/HR Linezolid 300 ml @ 150 mls/hr Q12H IV 06/01/24 01:00 06/05/24 00:22 150 MLS/HR Enteral Nutritional Formula 1,000 ml 30ML/HR GT 05/31/24 17:15 Meropenem 50 ml @ 17 mls/hr Q12HR IV 06/02/24 10:00 06/04/24 21:53 17 MLS/HR Dextrose 1,000 ml @ 60 mls/hr [id number] IV 06/04/24 13:30 06/05/24 05:54 60 MLS/HR Purified Water 200 ml Q6HR GT 06/04/24 18:00 06/05/24 05:53 200 ML Pantoprazole Sodium 40 mg DAILY@0600 PO 06/05/24 06:00 Enoxaparin Sodium 30 mg DAILY SC 06/05/24 10:00 Dopamine HCl/ Dextrose 250 ml @ 14.85 mls/ hr [id number] IV 06/04/24 20:15 Examination General Appearance: Cooperative. Well developed. Well nourished. NAD Head Exam: Normal inspection Neck Exam: Normal inspection. Non-tender. Normal alignment Pulmonary/Respiratory: Chest non-tender. Clear bilateral breath sounds Cardiovascular/Chest: Regular rate and rhythm. No murmurs. No JVD. Peripheral Pulses: 2+ Radial (R). 2+ Radial (L). 2+ Pedal (R). 2+ Pedal (L) Abdominal Exam: Normal bowel sounds. Soft. Nontender. No hepatospenomegaly. No masses Ankle Exam: Negative ankle edema Lower extremities: Negative lower extremity edema Neuro/Mental Status: A&O x 2 laboratory and microbiology Laboratory Tests 06/05/24 03:10 Test 06/05/24 03:10 Range/Units Serum Glucose 104 74-106 mg/dL Microbiology Date/Time Source Procedure Growth Status 06/03/24 16:46 Urine - Mays Port Urine Culture - Preliminary Resulted 05/30/24 16:37 Stool Clostridium difficile Toxin Assay - Final Complete 05/30/24 03:15 Nose MRSA Screen - Final Complete 05/29/24 21:15 Sputum Gram Stain - Final Complete 05/29/24 21:15 Respiratory Culture - Final Acinetobacter baumannii Complete 05/29/24 19:38 Blood Blood Culture - Final NO GROWTH AFTER 5 DAYS OF INCUBATION. Complete Problem List/Assessment/Plan Problem List/Assessment/Plan Neurology Acute metabolic encephalopathy likely due to sepsis -initially patient was altered, after extubation patient is alert oriented to time, and place. -continue to monitor Altered mental status likely due to above: Improving -AOA*2 History of dementia History of CVA -resume aspirin, atorvastatin Off sedation Respiratory Acute hypoxic respiratory failure due to ARDS/CHF exacerbation -extubated, currently on 2-3 L via nasal cannula -repeat chest x-ray in a.m. Extubated on 06/04/2024 Cardiology/Infectious Septic shock due to UTI -continue IV antibiotic meropenem 1 g q.12, linezolid 600 mg q.12. -dopamine : 2.499 microgram/kg per minute. -D5W 60 mL/hour -urine culture(05/11/2024): E coli ESBL Acute on chronic systolic heart failure(heart failure reduced ejection fraction, ejection fraction 5%) -we will resume home medication if he has volume overload: Lasix -ECHO(05/12/24):lvef 5-7% Cardiogenic shock: -vasopressor: off levophed, currently on dopamine for bradyarrhythmia only -chest x-ray on 06/04/2024: Bilateral clear lungs, no signs of pulmonary vascular congestion -resume home medication once patient is hemodynamically stable NSTEMI type 2 likely due to above -troponin 135 on 05/29/2024 non trending. -cardiology on board Bradyarrhythmia -dopamine 2.5 microgram/kg per minute. Nephrology AB due to VMN in setting of CKD: Resolved -creatinine 1.20, 1.01 -GFR 60, 74 -continue to monitor kidney function Hypernatremia, improving -sodium 152, chloride 114 -start D5W 60 mL/hour -free water 200 mL q.6 Metabolic alkalosis possible in setting of volume contraction -likely due to dehydration. Gift Manager Acute transaminitis -non trending liver enzymes -continue to monitor liver function Endocrinology Hyperglycemia , HGB A1c 5.2 -continue to monitor serum glucose Nutrition Nepro 30 mL/hour. Feeding via NG tube. Lines Right subclavian triple-lumen: Placed on 05/29/24 Mays catheter PUD prophylaxis: Protonix DVT prophylaxis: Lovenox Critical care time spent greater than 44 minutes Plan discussed with Dr. Bates Plan discussed with: Other (RN) My Orders My Orders Orders - MARY ANN PAT RESIDENT Procedure Category Date Status Time Extubate GIRISH 06/04/24 In Process 08:06 Pantoprazole Tablet PHA 06/05/24 In Process (Protonix Tablet) 06:00 Enoxaparin Sodium PHA 06/05/24 In Process (Lovenox) 10:00 Chest Portable XY 06/04/24 Resulted 23:47 Dietary Evaluation Review Comments: 1) If GI is preferred route consider Jevity 1.2 @ 70 ml/hr goal rate as tolerated 2) If pt remains NPO >7days consider TPN to meet at least 75% of estimated needs 3) Advance pt diet to a Renal Specific K2,low phos,MILLER,2gmNa,50gPro diet 3) Continue current plan of care Expected Outcomes/Goals: 1) Pt to receive adequate nutrition support with 72 hrs of NPO status 2) Pt diet to advance 3) F/U in 2-3 days Date of Service: Jun 05, 2024 Billing Provider: SHARMIN PETERS MD Common Visit Codes: [id number] CARE 30-74 MIN MARY ANN PAT RESIDENT Jun 05, 2024 07:39 SHARMIN PETERS MD Jun 06, 2024 14:19
[2024-06-05] MEDS: PANTOPRAZOLE 40 MG/10 ML VIAL INJ IV SCH (09:48)
[2024-06-05] MEDS: ENOXAPARIN SOD 30 MG/0.3 ML SYRINGE SC SCH (09:49)
[2024-06-05] MEDS: MEROPENEM 1GM IVPB 50 ML IV SCH (09:49)
[2024-06-05] MEDS: ASPirin 81 mg TAB GT SCH (09:50)
--- NOTE | 2024-06-05 11:59 | DVHPN2 ---
Progress Note Date Seen: Jun 05, 2024 Has the PT tested + for MRSA If YES, has PT been informed?: No Medical Necessity Reason Pt with a Central, PICC or Fol: Yes The following are medically ne: Mays Catheter Reason for mays catheter: Strict I&O Subjective Other Systems: extubated on face mask laying Objective vital signs Vital Sign Date Time Temp Pulse Resp B/P (MAP) Pulse Ox O2 Delivery O2 Flow Rate FiO2 06/05/24 10:00 21 95 Nasal Cannula* 2 35 Oxymizer 35 06/05/24 08:00 74 06/05/24 07:00 114/63 (80) 06/05/24 04:00 98.0 98.0 Total Intake and Output 06/04/24 06/04/24 06/05/24 15:00 23:00 07:00 Intake Total 608.221 ml 417.700 ml 1039.400 ml Output Total 600 ml 575 ml Balance 608.221 ml -182.300 ml 464.400 ml medications Current Medications Medications Dose Ordered Sig/Elpidio Route Start Time Stop Time Status Last Admin Dose Admin Albuterol 2.5 mg Q6HPRN PRN NEB 05/29/24 22:30 Ondansetron HCl 4 mg Q4HP PRN IV 05/29/24 22:30 Acetaminophen 650 mg Q6HP PRN PO 05/29/24 22:30 Nitroglycerin 0.4 mg Q5MINP PRN SL 05/29/24 22:30 Morphine Sulfate 2 mg Q30M PRN IV 05/29/24 22:30 06/04/24 01:25 2 MG Enteral Nutritional Formula 1,000 ml 30ML/HR GT 05/31/24 17:15 Dextrose 1,000 ml @ 60 mls/hr [id number] IV 06/04/24 13:30 06/05/24 05:54 60 MLS/HR Purified Water 200 ml Q6HR GT 06/04/24 18:00 06/05/24 05:53 200 ML Enoxaparin Sodium 30 mg DAILY SC 06/05/24 10:00 06/05/24 09:49 30 MG Aspirin 81 mg DAILY GT 06/05/24 10:00 06/05/24 09:50 81 MG Atorvastatin Calcium 10 mg HS GT 06/05/24 22:00 Pantoprazole Sodium 40 mg DAILY IV 06/05/24 10:00 06/05/24 09:48 40 MG Meropenem 50 ml @ 17 mls/hr Q8H IV 06/05/24 10:00 06/05/24 09:49 17 MLS/HR Examination: GENERAL:Abnormal, HEENT:Abnormal, LUNGS:Abnormal, CVS:Abnormal, ABDOMEN:Abnormal laboratory and microbiology Laboratory Tests 06/05/24 03:10 Test 06/05/24 03:10 Range/Units Serum Glucose 104 74-106 mg/dL Microbiology Date/Time Source Procedure Growth Status 06/03/24 16:46 Urine - Mays Port Urine Culture - Preliminary Resulted 05/30/24 16:37 Stool Clostridium difficile Toxin Assay - Final Complete 05/30/24 03:15 Nose MRSA Screen - Final Complete 05/29/24 21:15 Sputum Gram Stain - Final Complete 05/29/24 21:15 Respiratory Culture - Final Acinetobacter baumannii Complete 05/29/24 19:38 Blood Blood Culture - Final NO GROWTH AFTER 5 DAYS OF INCUBATION. Complete Problem List/Assessment/Plan Problem List/Assessment/Plan end stage HF ckd HTN bradycardia recent nstemi cont pressors , can wean down as feasible low dose dopamine as needed--started and has helped hemodynamics wean off levophed cont diuretics cpap daily for exercise poor prognosis--consider goals of care if pt gets extubated/ risk of repeat acute HF is very high recommend hospice eval Plan discussed with: Patient Dietary Evaluation Review Comments: 1) If GI is preferred route consider Jevity 1.2 @ 70 ml/hr goal rate as tolerated 2) If pt remains NPO >7days consider TPN to meet at least 75% of estimated needs 3) Advance pt diet to a Renal Specific K2,low phos,MILLER,2gmNa,50gPro diet 3) Continue current plan of care Expected Outcomes/Goals: 1) Pt to receive adequate nutrition support with 72 hrs of NPO status 2) Pt diet to advance 3) F/U in 2-3 days Date of Service: Jun 05, 2024 Billing Provider: ASHLEIGH MANZO MD Common Visit Codes: NOT BILLABLE ASHLEIGH MANZO MD Jun 05, 2024 11:59
--- NOTE | 2024-06-05 12:22 | DVHPN2 ---
Progress Note Date Seen: Jun 05, 2024 Has the PT tested + for MRSA If YES, has PT been informed?: No Medical Necessity Reason Pt with a Central, PICC or Fol: Yes The following are medically ne: Mays Catheter Reason for mays catheter: Strict I&O Subjective Review of Systems: RESPIRATORY:Abnormal Other Systems: Patient seen and examined by myself today in follow-up Objective vital signs Vital Sign Date Time Temp Pulse Resp B/P (MAP) Pulse Ox O2 Delivery O2 Flow Rate FiO2 06/05/24 12:00 29 100 Nasal Cannula* 2 35 Oxymizer 35 06/05/24 08:00 74 06/05/24 07:00 114/63 (80) 06/05/24 04:00 98.0 98.0 Total Intake and Output 06/04/24 06/04/24 06/05/24 15:00 23:00 07:00 Intake Total 608.221 ml 417.700 ml 1039.400 ml Output Total 600 ml 575 ml Balance 608.221 ml -182.300 ml 464.400 ml medications Current Medications Medications Dose Ordered Sig/Elpidio Route Start Time Stop Time Status Last Admin Dose Admin Albuterol 2.5 mg Q6HPRN PRN NEB 05/29/24 22:30 Ondansetron HCl 4 mg Q4HP PRN IV 05/29/24 22:30 Acetaminophen 650 mg Q6HP PRN PO 05/29/24 22:30 Nitroglycerin 0.4 mg Q5MINP PRN SL 05/29/24 22:30 Morphine Sulfate 2 mg Q30M PRN IV 05/29/24 22:30 06/04/24 01:25 2 MG Enteral Nutritional Formula 1,000 ml 30ML/HR GT 05/31/24 17:15 Dextrose 1,000 ml @ 60 mls/hr [id number] IV 06/04/24 13:30 06/05/24 05:54 60 MLS/HR Purified Water 200 ml Q6HR GT 06/04/24 18:00 06/05/24 05:53 200 ML Enoxaparin Sodium 30 mg DAILY SC 06/05/24 10:00 06/05/24 09:49 30 MG Aspirin 81 mg DAILY GT 06/05/24 10:00 06/05/24 09:50 81 MG Atorvastatin Calcium 10 mg HS GT 06/05/24 22:00 Pantoprazole Sodium 40 mg DAILY IV 06/05/24 10:00 06/05/24 09:48 40 MG Meropenem 50 ml @ 17 mls/hr Q8H IV 06/05/24 10:00 06/05/24 09:49 17 MLS/HR laboratory and microbiology Laboratory Tests 06/05/24 03:10 Test 06/05/24 03:10 Range/Units Serum Glucose 104 74-106 mg/dL Microbiology Date/Time Source Procedure Growth Status 06/03/24 16:46 Urine - Mays Port Urine Culture - Preliminary Resulted 05/30/24 16:37 Stool Clostridium difficile Toxin Assay - Final Complete 05/30/24 03:15 Nose MRSA Screen - Final Complete 05/29/24 21:15 Sputum Gram Stain - Final Complete 05/29/24 21:15 Respiratory Culture - Final Acinetobacter baumannii Complete 05/29/24 19:38 Blood Blood Culture - Final NO GROWTH AFTER 5 DAYS OF INCUBATION. Complete Problem List/Assessment/Plan Problem List/Assessment/Plan Acute kidney injury superimposed Chronic Kidney Disease secondary hemodynamic mediated, creatinine was 1.2 on 05/21/2024 Vancomycin nephrotoxicity Acute respiratory failure, extubated Metabolic acidosis, resolved Dilated cardiomyopathy Diabetes mellitus type 2 NSTEMI Dementia Hypoalbuminemia Kidney stones, nonobstructing Hypernatremia due to dehydration Recommendations Kidney function is improving Increased urine output Mays catheter Strict I&Os Increase free water intake Hold diuresis Discontinue vancomycin kidney ultrasound nonobstructing kidney stone Insulin SS Cardiology consult Urology consult We will continue to follow Plan discussed with: Patient, Other (Nurse) Dietary Evaluation Review Comments: 1) If GI is preferred route consider Jevity 1.2 @ 70 ml/hr goal rate as tolerated 2) If pt remains NPO >7days consider TPN to meet at least 75% of estimated needs 3) Advance pt diet to a Renal Specific K2,low phos,MILLER,2gmNa,50gPro diet 3) Continue current plan of care Expected Outcomes/Goals: 1) Pt to receive adequate nutrition support with 72 hrs of NPO status 2) Pt diet to advance 3) F/U in 2-3 days INDERJIT WESTBROOK MD Jun 05, 2024 12:22
[2024-06-05] MEDS: ACETAMINOPHEN 325 MG TAB PO PRN (22:36)
[2024-06-05] MEDS: ATORVASTATIN 20 MG TAB GT SCH (22:36)
[2024-06-06] VITALS (9 sets, daily range): BP systolic 97–153; BP diastolic 47–60; PULSE 68–84; RESP 17–30; TEMP 97.6–98.4; O2SAT 89–96
--- NOTE | 2024-06-06 04:58 | DVH ---
CHEST RADIOGRAPH Indication:CHF Technique: Single frontal view of the chest was obtained COMPARISON: XY CHEST PORTABLE on DOS: 06/05/24, XY CHEST XRAY 1 VIEW on DOS: 06/04/24, XY CHEST PARMINDER BLE on DOS: 06/04/24 FINDINGS: Lines and Tubes: Enteric catheter in satisfactory position. Lungs: Pulmonary vascular congestion. Pleura: No effusion. No pneumothorax. Cardiomediastinal contours: Unremarkable Bones: Unremarkable IMPRESSION: Enteric catheter in satisfactory position. Pulmonary vascular congestion.
[2024-06-06 06:41] LABS: Chloride 111 mmol/L (98-107); Potassium 3.7 mmol/L (3.5-5.1); Sodium 150 mmol/L (136-145)
[2024-06-06 06:42] LABS: Anion Gap 7 (5-15); Carbon Dioxide 32 mmol/L (20-31)
[2024-06-06 06:47] LABS: Glucose 77 mg/dL (74-106)
[2024-06-06 06:48] LABS: BUN/Creatinine Ratio 26.7 (10.0-20.0); Blood Urea Nitrogen 28 mg/dL (9-23)
[2024-06-06 07:16] LABS: Basophils # (auto) 0 10 ^3/uL (0-0.2); Basophils % (auto) 0.3 % (0.0-2.0); Eosinophils # (auto) 0.3 10 ^3/uL (0-0.8); Eosinophils % (auto) 3.1 % (0.0-7.0); Hematocrit 41.2 % (41.0-53.0); Hemoglobin 13.9 g/dL (13.5-17.5); Lymphocytes # (auto) 0.7 10 ^3/uL (0.4-5.4); Lymphocytes % (auto) 8.1 % (10.0-50.0); Mean Corpuscular Hemoglobin 33.2 pg (28.0-32.0); Mean Corpuscular Hgb Conc. 33.7 g/dL (32.0-36.0); Mean Corpuscular Volume 98.6 fL (80.0-100.0); Monocytes # (auto) 0.5 10 ^3/uL (0-1.3); Monocytes % (auto) 6.2 % (0.0-12.0); Neutrophils # (auto) 6.7 10 ^3/uL (1.6-8.6); Neutrophils % (auto) 82.3 % (37.0-80.0); Nucleated Red Blood Cells % 0.1 %; Platelet Count (auto) 138 10^3/uL (140-450); Red Blood Cells 4.18 10^6/uL (4.5-5.90); Red Cell Distribution Width 15.3 % (11.8-14.3); White Blood Cell 8.1 10^3/uL (4.4-10.8)
[2024-06-06] MEDS: FUROSEMIDE 20 MG TAB PO SCH (10:17)
--- NOTE | 2024-06-06 13:06 | DVHPN2 ---
Progress Note Date Seen: Jun 06, 2024 Has the PT tested + for MRSA If YES, has PT been informed?: No Medical Necessity Reason Pt with a Central, PICC or Fol: Yes The following are medically ne: Mays Catheter Reason for mays catheter: Strict I&O Subjective Review of Systems: RESPIRATORY:Abnormal Other Systems: Patient seen and examined by myself today in follow-up Objective vital signs Vital Sign Date Time Temp Pulse Resp B/P (MAP) Pulse Ox O2 Delivery O2 Flow Rate FiO2 06/06/24 10:17 134/54 06/06/24 08:15 95 Nasal Cannula* 5 40 06/06/24 04:43 97.6 77 18 97.6 Total Intake and Output 06/05/24 06/05/24 06/06/24 15:00 23:00 07:00 Intake Total 20 ml 60 ml 50 ml Output Total 500 ml 850 ml Balance 20 ml -440 ml -800 ml medications Current Medications Medications Dose Ordered Sig/Elpidio Route Start Time Stop Time Status Last Admin Dose Admin Albuterol 2.5 mg Q6HPRN PRN NEB 05/29/24 22:30 Ondansetron HCl 4 mg Q4HP PRN IV 05/29/24 22:30 Acetaminophen 650 mg Q6HP PRN PO 05/29/24 22:30 06/05/24 22:36 650 MG Nitroglycerin 0.4 mg Q5MINP PRN SL 05/29/24 22:30 Morphine Sulfate 2 mg Q30M PRN IV 05/29/24 22:30 06/04/24 01:25 2 MG Enteral Nutritional Formula 1,000 ml 30ML/HR GT 05/31/24 17:15 Purified Water 200 ml Q6HR GT 06/04/24 18:00 06/06/24 06:07 200 ML Enoxaparin Sodium 30 mg DAILY SC 06/05/24 10:00 06/06/24 10:14 30 MG Aspirin 81 mg DAILY GT 06/05/24 10:00 06/06/24 10:13 81 MG Atorvastatin Calcium 10 mg HS GT 06/05/24 22:00 06/05/24 22:36 10 MG Pantoprazole Sodium 40 mg DAILY IV 06/05/24 10:00 06/06/24 10:13 40 MG Meropenem 50 ml @ 17 mls/hr Q8H IV 06/05/24 10:00 06/06/24 11:08 17 MLS/HR Furosemide 20 mg DAILY PO 06/06/24 10:00 06/06/24 10:17 20 MG Examination: LUNGS:Normal, CVS:Normal, MSK:Normal laboratory and microbiology Laboratory Tests 06/06/24 05:53 Test 06/06/24 05:53 Range/Units Serum Glucose 77 74-106 mg/dL Microbiology Date/Time Source Procedure Growth Status 06/03/24 16:46 Urine - Mays Port Urine Culture - Final Complete 05/30/24 16:37 Stool Clostridium difficile Toxin Assay - Final Complete 05/30/24 03:15 Nose MRSA Screen - Final Complete 05/29/24 21:15 Sputum Gram Stain - Final Complete 05/29/24 21:15 Respiratory Culture - Final Acinetobacter baumannii Complete 05/29/24 19:38 Blood Blood Culture - Final NO GROWTH AFTER 5 DAYS OF INCUBATION. Complete Problem List/Assessment/Plan Problem List/Assessment/Plan Acute kidney injury superimposed Chronic Kidney Disease secondary hemodynamic mediated, creatinine was 1.2 on 05/21/2024 Vancomycin nephrotoxicity Acute respiratory failure, extubated flow oxygen Metabolic acidosis, resolved Dilated cardiomyopathy Diabetes mellitus type 2 NSTEMI Dementia Hypoalbuminemia Kidney stones, nonobstructing Hypernatremia due to dehydration Recommendations Kidney function resolved back to normal Increased urine output Mays catheter Strict I&Os Increase free water intake Hold diuresis IV D5 W at 100 cc/hour Discontinue vancomycin kidney ultrasound nonobstructing kidney stone Insulin SS Cardiology consult Urology consult I will sign off this case please reconsult as needed Thank you for the consult Plan discussed with: Patient Dietary Evaluation Review Comments: 1) If GI is preferred route consider Jevity 1.2 @ 70 ml/hr goal rate as tolerated 2) If pt remains NPO >7days consider TPN to meet at least 75% of estimated needs 3) Advance pt diet to a Renal Specific K2,low phos,MILLER,2gmNa,50gPro diet 3) Continue current plan of care Expected Outcomes/Goals: 1) Pt to receive adequate nutrition support with 72 hrs of NPO status 2) Pt diet to advance 3) F/U in 2-3 days INDERJIT WESTBROOK MD Jun 06, 2024 13:06
--- NOTE | 2024-06-06 15:48 | DVH ---
EXAM: XR Chest, 1 View CLINICAL INDICATION: confirm NG tube placement TECHNIQUE: Frontal view of the chest. COMPARISON: XY CHEST XRAY 1 VIEW on DOS: 06/06/24, XY CHEST PORTABLE on DOS: 06/05/24, XY CHEST XRA Y 1 VIEW on DOS: 06/04/24 FINDINGS: LUNGS AND PLEURAL SPACES: Unremarkable. No consolidation. No pneumothorax. HEART: Unremarkable. No cardiomegaly. MEDIASTINUM: Unremarkable. Normal mediastinal contour. BONES/JOINTS: Unremarkable. No acute fracture. TUBES, LINES AND DEVICES: Enteric tube tip in the stomach. 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 OTHER FINDINGS: . . Mild CHF. IMPRESSION: No acute cardiopulmonary process. HS:Y
--- NOTE | 2024-06-06 20:38 | DVHPNRES ---
Progress Note Date Seen: Jun 06, 2024 Resident Creating Document: MARY ANN PAT RESIDENT Has the PT tested + for MRSA If YES, has PT been informed?: No Medical Necessity Reason Pt with a Central, PICC or Fol: Yes The following are medically ne: Mays Catheter Reason for mays catheter: Strict I&O Subjective Review of Systems HPI: 83/male, past medical history: Heart failure reduced ejection fraction 5%, CKD, cardiogenic shock, UTI, CVA, dementia, hypertension Patient is 83-year-old male who brought to the hospital via EMS for altered level of consciousness from [facility]. Patient was recently hospitalized for cardiogenic shock and sent to residential [facility] for treatment of UTI secondary to E coli ESBL treated with ertapenem IV. During stay at residential facility, patient was confused, altered that listed patient was brought to the emergency department for evaluation. With further evaluation, patient was intubated by ER provider to protect airway on admission day 05/30/2024. Hospital course: Patient was intubated with mechanical ventilation volume control. Treated with IV antibiotic meropenem, vancomycin, vasopressors including Levophed and dobutamine initially. Respiratory culture was done which came positive for Acinetobacter baumannii sensitive to meropenem. Patient continued on antibiotic. Over the course of hospitalization patient's FiO2 requirement reduce to 45 %. Patient continued to have clear lungs without accessory oxygen requirement. WBC count significantly improved over the course of hospitalization as well with kidney function improvement as well. Extubated on 06/04/2024. ABG: Metabolic alkalosis: PH 7.45, pCO2 46.5, PO2 74.5, HC03 31.2. Chest x-ray on 06/04/2024 23:00 : Bilateral lungs clear lungs clear, no signs of pulmonary vascular congestion. Patient seen and examined at bedside. No new complaints. Objective vital signs Vital Sign Date Time Temp Pulse Resp B/P (MAP) Pulse Ox O2 Delivery O2 Flow Rate FiO2 06/06/24 17:00 98.3 84 24 97/47 (64) 93 98.3 06/06/24 08:15 Nasal Cannula* 5 40 Total Intake and Output 06/05/24 06/05/24 06/06/24 15:00 23:00 07:00 Intake Total 20 ml 60 ml 50 ml Output Total 500 ml 850 ml Balance 20 ml -440 ml -800 ml medications Current Medications Medications Dose Ordered Sig/Elpidio Route Start Time Stop Time Status Last Admin Dose Admin Albuterol 2.5 mg Q6HPRN PRN NEB 05/29/24 22:30 Ondansetron HCl 4 mg Q4HP PRN IV 05/29/24 22:30 Acetaminophen 650 mg Q6HP PRN PO 05/29/24 22:30 06/05/24 22:36 650 MG Nitroglycerin 0.4 mg Q5MINP PRN SL 05/29/24 22:30 Morphine Sulfate 2 mg Q30M PRN IV 05/29/24 22:30 06/04/24 01:25 2 MG Enteral Nutritional Formula 1,000 ml 30ML/HR GT 05/31/24 17:15 Purified Water 200 ml Q6HR GT 06/04/24 18:00 06/06/24 18:00 200 ML Enoxaparin Sodium 30 mg DAILY SC 06/05/24 10:00 06/06/24 10:14 30 MG Aspirin 81 mg DAILY GT 06/05/24 10:00 06/06/24 10:13 81 MG Atorvastatin Calcium 10 mg HS GT 06/05/24 22:00 06/05/24 22:36 10 MG Pantoprazole Sodium 40 mg DAILY IV 06/05/24 10:00 06/06/24 10:13 40 MG Meropenem 50 ml @ 17 mls/hr Q8H IV 06/05/24 10:00 06/06/24 18:36 17 MLS/HR Furosemide 20 mg DAILY PO 06/06/24 10:00 06/06/24 10:17 20 MG Examination General Appearance: Cooperative. Well developed. Well nourished. NAD Head Exam: Normal inspection Neck Exam: Normal inspection. Non-tender. Normal alignment Pulmonary/Respiratory: Chest non-tender. Clear bilateral breath sounds Cardiovascular/Chest: Regular rate and rhythm. No murmurs. No JVD. Peripheral Pulses: 2+ Radial (R). 2+ Radial (L). 2+ Pedal (R). 2+ Pedal (L) Abdominal Exam: Normal bowel sounds. Soft. Nontender. No hepatospenomegaly. No masses Ankle Exam: Negative ankle edema Lower extremities: Negative lower extremity edema Neuro/Mental Status: A&O x 2 laboratory and microbiology Laboratory Tests 06/06/24 05:53 Test 06/06/24 05:53 Range/Units Serum Glucose 77 74-106 mg/dL Microbiology Date/Time Source Procedure Growth Status 06/03/24 16:46 Urine - Mays Port Urine Culture - Final Complete 05/30/24 16:37 Stool Clostridium difficile Toxin Assay - Final Complete 05/30/24 03:15 Nose MRSA Screen - Final Complete 05/29/24 21:15 Sputum Gram Stain - Final Complete 05/29/24 21:15 Respiratory Culture - Final Acinetobacter baumannii Complete 05/29/24 19:38 Blood Blood Culture - Final NO GROWTH AFTER 5 DAYS OF INCUBATION. Complete Problem List/Assessment/Plan Problem List/Assessment/Plan Neurology Acute metabolic encephalopathy likely due to sepsis: Improved -continue to monitor Altered mental status likely due to above: Improving -AOA*2 History of dementia History of CVA -resume aspirin, atorvastatin Respiratory Acute hypoxic respiratory failure due to ARDS/CHF exacerbation -extubated, currently on 2-3 L via nasal cannula Extubated on 06/04/2024 Cardiology/Infectious Septic shock due to UTI -continue IV antibiotic meropenem 1 g q.12, linezolid 600 mg q.12. -urine culture(05/11/2024): E coli ESBL Acute on chronic systolic heart failure(heart failure reduced ejection fraction, ejection fraction 5%) -we will resume home medication if he has volume overload: Lasix -ECHO(05/12/24):lvef 5-7% Cardiogenic shock: -vasopressor: off levophed, -chest x-ray on 06/04/2024: Bilateral clear lungs, no signs of pulmonary vascular congestion NSTEMI type 2 likely due to above -troponin 135 on 05/29/2024 non trending. -cardiology on board Nephrology AB due to VMN in setting of CKD: Resolved -creatinine 1.20, 1.01 -GFR 60, 74 -continue to monitor kidney function Hypernatremia, improving -sodium 150, -free water 200 mL q.6 Metabolic alkalosis possible in setting of volume contraction -likely due to dehydration. 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 Feeding via NG tube. Lines Right subclavian triple-lumen: Placed on 10/15/24 Mays catheter PUD prophylaxis: Protonix DVT prophylaxis: Lovenox Critical care time spent greater than 36 minutes Plan discussed with Dr. Bates Plan discussed with: Other My Orders My Orders Orders - MARY ANN PAT RESIDENT Procedure Category Date Status Time Furosemide Tablet PHA 06/06/24 In Process (Lasix Tablet) 10:00 * Biodiesel Process Control Technician CONS 06/06/24 Transmitted Consult Dietary Evaluation Review Comments: 1) If GI is preferred route consider Jevity 1.2 @ 70 ml/hr goal rate as tolerated 2) If pt remains NPO >7days consider TPN to meet at least 75% of estimated needs 3) Advance pt diet to a Renal Specific K2,low phos,MILLER,2gmNa,50gPro diet 3) Continue current plan of care Expected Outcomes/Goals: 1) Pt to receive adequate nutrition support with 72 hrs of NPO status 2) Pt diet to advance 3) F/U in 2-3 days Date of Service: Jun 06, 2024 Billing Provider: SHARMIN PETERS MD Common Visit Codes: [id number] CARE 30-74 MIN MARY ANN PAT Jun 06, 2024 20:38 SHARMIN PETERS MD Jun 07, 2024 11:57
[2024-06-07] VITALS (9 sets, daily range): BP systolic 116–135; BP diastolic 47–56; PULSE 68–79; RESP 17–20; TEMP 97.6–98.4; O2SAT 93–100
--- NOTE | 2024-06-07 06:22 | DVH ---
CHEST RADIOGRAPH Indication:CHF Technique: Single frontal view of the chest was obtained COMPARISON: XY CHEST PORTABLE on DOS: 06/06/24, XY CHEST XRAY 1 VIEW on DOS: 06/06/24, XY CHEST PARMINDER BLE on DOS: 06/05/24 FINDINGS: Lines and Tubes: Right PICC and enteric catheter in satisfactory position. Lungs: Multifocal airspace disease. Pleura: No effusion. No pneumothorax. Cardiomediastinal contours: Unremarkable Bones: Unremarkable IMPRESSION: Lines and tubes in satisfactory position. No significant interval change.
[2024-06-07 07:14] LABS: Basophils # (auto) 0.1 10 ^3/uL (0-0.2); Basophils % (auto) 0.8 % (0.0-2.0); Eosinophils # (auto) 0.3 10 ^3/uL (0-0.8); Eosinophils % (auto) 4.1 % (0.0-7.0); Lymphocytes # (auto) 0.8 10 ^3/uL (0.4-5.4); Lymphocytes % (auto) 10.9 % (10.0-50.0); Mean Corpuscular Hemoglobin 32.4 pg (28.0-32.0); Mean Corpuscular Hgb Conc. 32.6 g/dL (32.0-36.0); Mean Corpuscular Volume 99.4 fL (80.0-100.0); Monocytes # (auto) 0.5 10 ^3/uL (0-1.3); Monocytes % (auto) 7.4 % (0.0-12.0); Neutrophils # (auto) 5.6 10 ^3/uL (1.6-8.6); Neutrophils % (auto) 76.8 % (37.0-80.0); Nucleated Red Blood Cells % 0.1 %; Platelet Count (auto) 128 10^3/uL (140-450); Red Blood Cells 4.02 10^6/uL (4.5-5.90); Red Cell Distribution Width 15.6 % (11.8-14.3); White Blood Cell 7.3 10^3/uL (4.4-10.8)
[2024-06-07 07:24] LABS: Chloride 112 mmol/L (98-107); Potassium 3.8 mmol/L (3.5-5.1); Sodium 153 mmol/L (136-145)
[2024-06-07 07:25] LABS: Anion Gap 5 (5-15); Calcium 8.7 mg/dL (8.7-10.4); Carbon Dioxide 36 mmol/L (20-31)
[2024-06-07 07:30] LABS: BUN/Creatinine Ratio 29.5 (10.0-20.0); Blood Urea Nitrogen 31 mg/dL (9-23); Glucose 107 mg/dL (74-106)
--- NOTE | 2024-06-07 13:27 | DVH ---
EXAM: XY CHEST PORTABLE TECHNIQUE: Single frontal chest radiograph CLINICAL HISTORY: VERIFY NGT PLACEMENT COMPARISON: XY CHEST XRAY 1 VIEW on DOS: 06/07/24, XY CHEST PORTABLE on DOS: 06/06/24, XY CHEST XRAY 1 VIEW on DOS: 06/06/24 Findings/Impression: Frontal chest radiograph demonstrates no acute osseous or superficial soft tissue abnormalities. Side port of the enteric tube is above the level of the GE junction. Recommend advancing 5 cm for mor e optimal positioning. Right upper extremity central line terminates in the right atrium. The trachea is midline. The cardiac silhouette and mediastinum are within normal limits. Moderate elevation of the right hemidiaphragm. Bibasilar atelectasis. No pneumothorax, pleural effusions, or consolidations. Critical Result: Malpositioned tube Findings discussed with the patient's attending nurse, at 06/07/2024 01:25 PM, and acknowledged recei pt and understanding of the findings.
--- NOTE | 2024-06-07 14:25 | DVH ---
EXAM: XY KUB ABDOMEN SINGLE VIEW HISTORY: Verify NGT placement (per radiology) COMPARISON: None TECHNIQUE: Single AP of the abdomen and pelvis was obtained. Findings: Frontal view of the abdomen demonstrates a nonobstructive bowel gas pattern. No visualized renal calc molly. There is no evidence of an acute fracture, dislocation, blastic, or lytic lesions. The visualized portions of the lung bases are unremarkable. Enteric tibe overlying the plane of the stomach. No superficial soft tissue abnormalities. Moderate degenerative changes of the lumbar spine. Impression: 1. Nonobstructive bowel gas pattern. 2. Enteric tube overlying the plane of the stomach. 3. No visualized renal calculi.
--- NOTE | 2024-06-07 14:38 | DVHPN2 ---
Progress Note Date Seen: Jun 07, 2024 Has the PT tested + for MRSA If YES, has PT been informed?: No Medical Necessity Reason Pt with a Central, PICC or Fol: Yes The following are medically ne: Mays Catheter Reason for mays catheter: Strict I&O Subjective Patient reports: Feels better Other Systems: pt pulled his NGT seen with RN pt has mittens on Objective vital signs Vital Sign Date Time Temp Pulse Resp B/P (MAP) Pulse Ox O2 Delivery O2 Flow Rate FiO2 06/07/24 12:50 98.3 72 20 116/47 (70) 97 98.3 06/07/24 07:47 Nasal Cannula 5.0 06/07/24 07:47 40 Total Intake and Output 06/06/24 06/06/24 06/07/24 15:00 23:00 07:00 Intake Total 60 ml 10 ml 450 ml Output Total 946 ml Balance 60 ml -936 ml 450 ml medications Current Medications Medications Dose Ordered Sig/Elpidio Route Start Time Stop Time Status Last Admin Dose Admin Ondansetron HCl 4 mg Q4HP PRN IV 05/29/24 22:30 Acetaminophen 650 mg Q6HP PRN PO 05/29/24 22:30 06/05/24 22:36 650 MG Nitroglycerin 0.4 mg Q5MINP PRN SL 05/29/24 22:30 Morphine Sulfate 2 mg Q30M PRN IV 05/29/24 22:30 06/04/24 01:25 2 MG Enteral Nutritional Formula 1,000 ml 30ML/HR GT 05/31/24 17:15 Purified Water 200 ml Q6HR GT 06/04/24 18:00 06/07/24 05:34 200 ML Enoxaparin Sodium 30 mg DAILY SC 06/05/24 10:00 06/07/24 13:12 30 MG Aspirin 81 mg DAILY GT 06/05/24 10:00 06/06/24 10:13 81 MG Atorvastatin Calcium 10 mg HS GT 06/05/24 22:00 06/06/24 22:01 10 MG Pantoprazole Sodium 40 mg DAILY IV 06/05/24 10:00 06/07/24 13:12 40 MG Meropenem 50 ml @ 17 mls/hr Q8H IV 06/05/24 10:00 06/07/24 13:11 17 MLS/HR Examination: GENERAL:Abnormal, HEENT:Abnormal, LUNGS:Abnormal, CVS:Abnormal, ABDOMEN:Abnormal laboratory and microbiology Laboratory Tests 06/07/24 05:48 Test 06/07/24 05:48 Range/Units Serum Glucose 107 H 74-106 mg/dL Microbiology Date/Time Source Procedure Growth Status 06/03/24 16:46 Urine - Mays Port Urine Culture - Final Complete 05/30/24 16:37 Stool Clostridium difficile Toxin Assay - Final Complete 05/30/24 03:15 Nose MRSA Screen - Final Complete 05/29/24 21:15 Sputum Gram Stain - Final Complete 05/29/24 21:15 Respiratory Culture - Final Acinetobacter baumannii Complete 05/29/24 19:38 Blood Blood Culture - Final NO GROWTH AFTER 5 DAYS OF INCUBATION. Complete Problem List/Assessment/Plan Problem List/Assessment/Plan end stage HF ckd HTN bradycardia recent nstemi cont pressors , can wean down as feasible low dose dopamine as needed--started and has helped hemodynamics wean off levophed cont diuretics cpap daily for exercise poor prognosis--consider goals of care if pt gets extubated/ risk of repeat acute HF is very high recommend hospice eval Plan discussed with: Patient Dietary Evaluation Review Comments: 1) If GI is preferred route consider Jevity 1.2 @ 70 ml/hr goal rate as tolerated 2) If pt remains NPO >7days consider TPN to meet at least 75% of estimated needs 3) Advance pt diet to a Renal Specific K2,low phos,MILLER,2gmNa,50gPro diet 3) Continue current plan of care Expected Outcomes/Goals: 1) Pt to receive adequate nutrition support with 72 hrs of NPO status 2) Pt diet to advance 3) F/U in 2-3 days Date of Service: Jun 07, 2024 Billing Provider: ASHLEIGH MANZO MD Common Visit Codes: NOT BILLABLE ASHLEIGH MANZO MD Jun 07, 2024 14:38
--- NOTE | 2024-06-07 19:23 | DVHPNRES ---
Progress Note Date Seen: Jun 07, 2024 Resident Creating Document: MARY ANN PAT RESIDENT Has the PT tested + for MRSA If YES, has PT been informed?: No Medical Necessity Reason Pt with a Central, PICC or Fol: Yes The following are medically ne: Mays Catheter Reason for mays catheter: Strict I&O Subjective Review of Systems HPI: 83/male, past medical history: Heart failure reduced ejection fraction 5%, CKD, cardiogenic shock, UTI, CVA, dementia, hypertension Patient is 83-year-old male who brought to the hospital via EMS for altered level of consciousness from [facility] acute [facility]. Patient was recently hospitalized for cardiogenic shock and sent to [facility] for treatment of UTI secondary to E coli ESBL treated with ertapenem IV. During stay at [facility], patient was confused, altered that listed patient was brought to the emergency department for evaluation. With further evaluation, patient was intubated by ER provider to protect airway on admission day 05/30/2024. Hospital course: Patient was intubated with mechanical ventilation volume control. Treated with IV antibiotic meropenem, vancomycin, vasopressors including Levophed and dobutamine initially. Respiratory culture was done which came positive for Acinetobacter baumannii sensitive to meropenem. Patient continued on antibiotic. Over the course of hospitalization patient's FiO2 requirement reduce to 45 %. Patient continued to have clear lungs without accessory oxygen requirement. WBC count significantly improved over the course of hospitalization as well with kidney function improvement as well. Extubated on 06/04/2024. ABG: Metabolic alkalosis: PH 7.45, pCO2 46.5, PO2 74.5, HC03 31.2. Chest x-ray on 06/04/2024 23:00 : Bilateral lungs clear lungs clear, no signs of pulmonary vascular congestion. Patient seen and examined at bedside. No new complaints. Plan to remove subclavian central line. order for midline. Patient pulled off NG tube tube. Restart of feeding after reinsertion of NG tube. Objective vital signs Vital Sign Date Time Temp Pulse Resp B/P (MAP) Pulse Ox O2 Delivery O2 Flow Rate FiO2 06/07/24 16:44 98.4 79 19 118/53 (74) 98 98.4 06/07/24 08:00 Nasal Cannula* 5 40 Total Intake and Output 06/06/24 06/06/24 06/07/24 14:59 22:59 06:59 Intake Total 60 ml 10 ml 450 ml Output Total 946 ml Balance 60 ml -936 ml 450 ml medications Current Medications Medications Dose Ordered Sig/Elpidio Route Start Time Stop Time Status Last Admin Dose Admin Ondansetron HCl 4 mg Q4HP PRN IV 05/29/24 22:30 Acetaminophen 650 mg Q6HP PRN PO 05/29/24 22:30 06/05/24 22:36 650 MG Nitroglycerin 0.4 mg Q5MINP PRN SL 05/29/24 22:30 Morphine Sulfate 2 mg Q30M PRN IV 05/29/24 22:30 06/04/24 01:25 2 MG Enteral Nutritional Formula 1,000 ml 30ML/HR GT 05/31/24 17:15 Purified Water 200 ml Q6HR GT 06/04/24 18:00 06/07/24 18:06 200 ML Enoxaparin Sodium 30 mg DAILY SC 06/05/24 10:00 06/07/24 13:12 30 MG Aspirin 81 mg DAILY GT 06/05/24 10:00 06/06/24 10:13 81 MG Atorvastatin Calcium 10 mg HS GT 06/05/24 22:00 06/06/24 22:01 10 MG Pantoprazole Sodium 40 mg DAILY IV 06/05/24 10:00 06/07/24 13:12 40 MG Meropenem 50 ml @ 17 mls/hr Q8H IV 06/05/24 10:00 06/07/24 18:05 17 MLS/HR Examination General Appearance: Cooperative. Well developed. Well nourished. NAD Head Exam: Normal inspection Neck Exam: Normal inspection. Non-tender. Normal alignment Pulmonary/Respiratory: Chest non-tender. Clear bilateral breath sounds Cardiovascular/Chest: Regular rate and rhythm. No murmurs. No JVD. Peripheral Pulses: 2+ Radial (R). 2+ Radial (L). 2+ Pedal (R). 2+ Pedal (L) Abdominal Exam: Normal bowel sounds. Soft. Nontender. No hepatospenomegaly. No masses Ankle Exam: Negative ankle edema Lower extremities: Negative lower extremity edema Neuro/Mental Status: A&O x 2 laboratory and microbiology Laboratory Tests 06/07/24 05:48 Test 06/07/24 05:48 Range/Units Serum Glucose 107 H 74-106 mg/dL Microbiology Date/Time Source Procedure Growth Status 06/03/24 16:46 Urine - Mays Port Urine Culture - Final Complete 05/30/24 16:37 Stool Clostridium difficile Toxin Assay - Final Complete 05/30/24 03:15 Nose MRSA Screen - Final Complete 05/29/24 21:15 Sputum Gram Stain - Final Complete 05/29/24 21:15 Respiratory Culture - Final Acinetobacter baumannii Complete 05/29/24 19:38 Blood Blood Culture - Final NO GROWTH AFTER 5 DAYS OF INCUBATION. Complete Problem List/Assessment/Plan Problem List/Assessment/Plan Neurology Acute metabolic encephalopathy likely due to sepsis: Improved -continue to monitor Altered mental status likely due to above: Improving -AOA*2 History of dementia History of CVA -resume aspirin, atorvastatin Respiratory Acute hypoxic respiratory failure due to ARDS/CHF exacerbation -extubated, currently on 2-3 L via nasal cannula Extubated on 06/04/2024 Cardiology/Infectious Septic shock due to UTI -continue IV antibiotic meropenem 1 g q.12, linezolid 600 mg q.12. -urine culture(05/11/2024): E coli ESBL Acute on chronic systolic heart failure(heart failure reduced ejection fraction, ejection fraction 5%) -we will resume home medication if he has volume overload: Lasix -ECHO(05/12/24):lvef 5-7% Cardiogenic shock: -vasopressor: off levophed, -chest x-ray on 06/04/2024: Bilateral clear lungs, no signs of pulmonary vascular congestion NSTEMI type 2 likely due to above -troponin 135 on 05/29/2024 non trending. -cardiology on board Nephrology AB due to VMN in setting of CKD: Resolved -creatinine 1.20, 1.01 -GFR 60, 74 -continue to monitor kidney function Hypernatremia, improving -sodium 150, -free water 200 mL q.6 Metabolic alkalosis possible in setting of volume contraction -likely due to dehydration. 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 Feeding via NG tube. Lines Right subclavian triple-lumen: Placed on 05/29/24 Mays catheter PUD prophylaxis: Protonix DVT prophylaxis: Lovenox Had a long discussion with daughter via phone for sniff placement near [place]. Social service has been consulted for sniff placement. Plan for removal of subclinical catheter, insertion of midline for IV antibiotic, reinsertion of NG tube, restart feeding via NG tube. Critical care time spent greater than 35 minutes Plan discussed with Dr. Bates Plan discussed with: Daughter, Other (RN) My Orders My Orders Orders - MARY ANN PAT RESIDENT Procedure Category Date Status Time Chest Xray 1 View XY 06/07/24 Resulted 04:00 Dietary Evaluation Review Comments: 1) If GI is preferred route consider Jevity 1.2 @ 70 ml/hr goal rate as tolerated 2) If pt remains NPO >7days consider TPN to meet at least 75% of estimated needs 3) Advance pt diet to a Renal Specific K2,low phos,MILLER,2gmNa,50gPro diet 3) Continue current plan of care Expected Outcomes/Goals: 1) Pt to receive adequate nutrition support with 72 hrs of NPO status 2) Pt diet to advance 3) F/U in 2-3 days Date of Service: Jun 07, 2024 Billing Provider: SHARMIN PETERS MD Common Visit Codes: [id number] CARE 30-74 MIN MARY ANN PAT Jun 07, 2024 19:23 SHARMIN PETERS MD Jun 09, 2024 21:21
[2024-06-08] VITALS (8 sets, daily range): BP systolic 108–127; BP diastolic 45–63; PULSE 57–71; RESP 17–19; TEMP 97–98.7; O2SAT 93–99
[2024-06-08 10:12] LABS: Basophils # (auto) 0 10 ^3/uL (0-0.2); Basophils % (auto) 0.4 % (0.0-2.0); Eosinophils # (auto) 0.2 10 ^3/uL (0-0.8); Eosinophils % (auto) 2.8 % (0.0-7.0); Hemoglobin 13.9 g/dL (13.5-17.5); Lymphocytes # (auto) 0.8 10 ^3/uL (0.4-5.4); Lymphocytes % (auto) 9.9 % (10.0-50.0); Mean Corpuscular Hemoglobin 32.8 pg (28.0-32.0); Mean Corpuscular Hgb Conc. 32.2 g/dL (32.0-36.0); Mean Corpuscular Volume 101.9 fL (80.0-100.0); Monocytes # (auto) 0.5 10 ^3/uL (0-1.3); Monocytes % (auto) 6.9 % (0.0-12.0); Neutrophils # (auto) 6.2 10 ^3/uL (1.6-8.6); Platelet Count (auto) 115 10^3/uL (140-450); Red Blood Cells 4.22 10^6/uL (4.5-5.90); Red Cell Distribution Width 15.8 % (11.8-14.3); White Blood Cell 7.7 10^3/uL (4.4-10.8)
[2024-06-08 10:23] LABS: Chloride 114 mmol/L (98-107); Potassium 4.6 mmol/L (3.5-5.1); Sodium 156 mmol/L (136-145)
[2024-06-08 10:24] LABS: Anion Gap 2 (5-15); Calcium 9.2 mg/dL (8.7-10.4); Carbon Dioxide 40 mmol/L (20-31)
[2024-06-08 10:29] LABS: BUN/Creatinine Ratio 28.3 (10.0-20.0); Blood Urea Nitrogen 30 mg/dL (9-23); Glucose 100 mg/dL (74-106)
--- NOTE | 2024-06-08 11:00 | DVHPN2 ---
Progress Note Date Seen: Jun 08, 2024 Has the PT tested + for MRSA If YES, has PT been informed?: No Medical Necessity Reason Pt with a Central, PICC or Fol: Yes The following are medically ne: Mays Catheter Reason for mays catheter: Strict I&O Subjective Other Systems: on 4-5L Objective vital signs Vital Sign Date Time Temp Pulse Resp B/P (MAP) Pulse Ox O2 Delivery O2 Flow Rate FiO2 06/08/24 08:00 57 18 93 Nasal Cannula* 5 40 06/08/24 05:06 98.7 119/50 (73) 98.7 Total Intake and Output 06/07/24 06/07/24 06/08/24 15:00 23:00 07:00 Intake Total 100 ml 50 ml Output Total 250 ml 450 ml Balance -150 ml -400 ml medications Current Medications Medications Dose Ordered Sig/Elpidio Route Start Time Stop Time Status Last Admin Dose Admin Ondansetron HCl 4 mg Q4HP PRN IV 05/29/24 22:30 Acetaminophen 650 mg Q6HP PRN PO 05/29/24 22:30 06/05/24 22:36 650 MG Nitroglycerin 0.4 mg Q5MINP PRN SL 05/29/24 22:30 Enteral Nutritional Formula 1,000 ml 30ML/HR GT 05/31/24 17:15 Purified Water 200 ml Q6HR GT 06/04/24 18:00 06/08/24 05:51 200 ML Enoxaparin Sodium 30 mg DAILY SC 06/05/24 10:00 06/07/24 13:12 30 MG Aspirin 81 mg DAILY GT 06/05/24 10:00 06/08/24 10:12 81 MG Atorvastatin Calcium 10 mg HS GT 06/05/24 22:00 06/07/24 21:36 10 MG Pantoprazole Sodium 40 mg DAILY IV 06/05/24 10:00 06/08/24 10:12 40 MG Meropenem 50 ml @ 17 mls/hr Q8H IV 06/05/24 10:00 06/08/24 10:12 17 MLS/HR Examination: GENERAL:Abnormal, HEENT:Abnormal, LUNGS:Abnormal, CVS:Abnormal, ABDOMEN:Abnormal laboratory and microbiology Laboratory Tests 06/08/24 09:41 Test 06/08/24 09:41 Range/Units Serum Glucose 100 74-106 mg/dL Microbiology Date/Time Source Procedure Growth Status 06/03/24 16:46 Urine - Mays Port Urine Culture - Final Complete 05/30/24 16:37 Stool Clostridium difficile Toxin Assay - Final Complete 05/30/24 03:15 Nose MRSA Screen - Final Complete 05/29/24 21:15 Sputum Gram Stain - Final Complete 05/29/24 21:15 Respiratory Culture - Final Acinetobacter baumannii Complete 05/29/24 19:38 Blood Blood Culture - Final NO GROWTH AFTER 5 DAYS OF INCUBATION. Complete Problem List/Assessment/Plan Problem List/Assessment/Plan end stage HF ckd HTN bradycardia recent nstemi cont pressors , can wean down as feasible low dose dopamine as needed--started and has helped hemodynamics wean off levophed cont diuretics cpap daily for exercise poor prognosis--consider goals of care if pt gets extubated/ risk of repeat acute HF is very high recommend hospice eval give 20 mg iv lasix daily as pt is NPO Plan discussed with: Patient, Other (rn) Dietary Evaluation Review Comments: 1) If GI is preferred route consider Jevity 1.2 @ 70 ml/hr goal rate as tolerated 2) If pt remains NPO >7days consider TPN to meet at least 75% of estimated needs 3) Advance pt diet to a Renal Specific K2,low phos,MILLER,2gmNa,50gPro diet 3) Continue current plan of care Expected Outcomes/Goals: 1) Pt to receive adequate nutrition support with 72 hrs of NPO status 2) Pt diet to advance 3) F/U in 2-3 days Date of Service: Jun 08, 2024 Billing Provider: ASHLEIGH MANZO MD Common Visit Codes: NOT BILLABLE ASHLEIGH MAZNO MD Jun 08, 2024 11:00
[2024-06-08] MEDS: FUROSEMIDE 20 MG/2 ML VIAL IV SCH (11:35)
--- NOTE | 2024-06-08 13:06 | DVH ---
EXAM: XY CHEST PORTABLE Indication:NG tube placement Technique: Single frontal view of the chest was obtained Comparison: XY CHEST PORTABLE on DOS: 06/07/24, XY CHEST XRAY 1 VIEW on DOS: 06/07/24, XY CHEST PARMINDER BLE on DOS: 06/06/24, XY CHEST XRAY 1 VIEW on DOS: 06/06/24, XY CHEST PORTABLE on DOS: 06/05/24 FINDINGS: Lines and Tubes: Malpositioned enteric tube with tip coiled in the esophagus. Lungs: Low lung volumes with bibasilar atelectasis. Pleura: No effusion. No pneumothorax. Cardiomediastinal contours: Unremarkable Bones: No acute osseous abnormality. IMPRESSION: Malpositioned enteric tube with tip coiled in the esophagus.
--- NOTE | 2024-06-08 14:39 | DVH ---
CHEST RADIOGRAPH Indication:NG tube placement, S/P repositioning Technique: Single frontal view of the chest was obtained Comparison: XY CHEST PORTABLE on DOS: 06/08/24, XY CHEST PORTABLE on DOS: 06/07/24, XY CHEST XRAY 1 V IEW on DOS: 06/07/24 FINDINGS: Lines and Tubes: Enteric tube is in satisfactory position. Lungs: Bronchovascular crowding due to low lung volume with bilateral mid and lower lung zones opacit ies. Indistinctness of the left hemidiaphragm. No pneumothorax. Cardiomediastinal contours: Unremarkable Bones: No acute osseous abnormality. Lucency over the upper chest wall soft tissues which may be from overlying structures . IMPRESSION: Interval repositioning of the enteric tube with the enteric tube now in satisfactory position. Unchanged bilateral mid and lower lung zone atelectasis. Possible trace left-sided pleural effusion.
--- NOTE | 2024-06-08 18:56 | DVHPN2 ---
Subjective HPI: 83/male, past medical history: Heart failure reduced ejection fraction 5%, CKD, cardiogenic shock, UTI, CVA, dementia, hypertension Patient is 83-year-old male who brought to the hospital via EMS for altered level of consciousness from [facility]. Patient was recently hospitalized for cardiogenic shock [facility]TI secondary to E coli ESBL treated with ertapenem IV. During stay at jail facility, patient was confused, altered that listed patient was brought to the emergency department for evaluation. With further evaluation, patient was intubated by ER provider to protect airway on admission day 05/30/2024. Hospital course: Patient was intubated with mechanical ventilation volume control. Treated with IV antibiotic meropenem, vancomycin, vasopressors including Levophed and dobutamine initially. Respiratory culture was done which came positive for Acinetobacter baumannii sensitive to meropenem. Patient continued on antibiotic. Over the course of hospitalization patient's FiO2 requirement reduce to 45 %. Patient continued to have clear lungs without accessory oxygen requirement. WBC count significantly improved over the course of hospitalization as well with kidney function improvement as well. Extubated on 06/04/2024. remove subclavian central line. order for midline. Patient pulled off NG tube tube but new ng tube inserted to continue nutrition/fluid. patient downgrade to hospital medicine on 06/08 update -06/08 - patient altered which may be his baseline or new baseline. will set baseline with family. he is confused wanting to climb out of bed while also being unsteady in gait/posture and is fall risk. sitter will be needed. he appears to be hungry and wants to eat ice chips, which we kel monitor and allow. Reviewed: Care Plan, H&P, Labs, Medications, Previous Orders Changes from previous H/P or p: No Changes General: Per HPI Objective Vitals Vital Signs Date Time Temp Pulse Resp B/P (MAP) Pulse Ox O2 Delivery O2 Flow Rate FiO2 06/08/24 17:00 98.4 62 18 112/56 (74) 93 98.4 06/08/24 08:00 Nasal Cannula* 5 40 Intake/Output Intake and Output 06/08/24 07:00 Intake Total 150 ml Output Total 700 ml Balance -550 ml Intake Oral 0 ml IV Total 150 ml Output Urine Total 700 ml # Bowel Movements 2 Exam General Appearance: AOx1-2. poor nourished. NAD Pulmonary/Respiratory: Chest non-tender. Clear bilateral breath sounds Cardiovascular/Chest: Regular rate and rhythm. No murmurs. No JVD. Peripheral Pulses: 2+ Radial (R). 2+ Radial (L). 2+ Pedal (R). 2+ Pedal (L) Abdominal Exam: Normal bowel sounds. Soft. Nontender. No hepatospenomegaly. No masses. NG tube present - urine mays present extremities: Negative LE edema. senile purpura present Neuro/Mental Status: A&O x 2 Musculoskeletal: Weak motor strength RUE, Weak motor strength LUE, Weak motor strength RLE, Weak motor strength LLE Psych/Mental Status: Mental status NL, Mood NL Medications Current Medications Medications Dose Ordered Sig/Elpidio Route Start Time Stop Time Status Last Admin Dose Admin Ondansetron HCl 4 mg Q4HP PRN IV 05/29/24 22:30 Acetaminophen 650 mg Q6HP PRN PO 05/29/24 22:30 06/05/24 22:36 650 MG Nitroglycerin 0.4 mg Q5MINP PRN SL 05/29/24 22:30 Enteral Nutritional Formula 1,000 ml 30ML/HR GT 05/31/24 17:15 Purified Water 200 ml Q6HR GT 06/04/24 18:00 06/08/24 18:15 200 ML Enoxaparin Sodium 30 mg DAILY SC 06/05/24 10:00 06/08/24 11:35 30 MG Aspirin 81 mg DAILY GT 06/05/24 10:00 06/08/24 10:12 81 MG Atorvastatin Calcium 10 mg HS GT 06/05/24 22:00 06/07/24 21:36 10 MG Pantoprazole Sodium 40 mg DAILY IV 06/05/24 10:00 06/08/24 10:12 40 MG Meropenem 50 ml @ 17 mls/hr Q8H IV 06/05/24 10:00 06/08/24 18:15 17 MLS/HR Furosemide 20 mg DAILY IV 06/08/24 11:00 06/08/24 11:35 20 MG Laboratory Results Laboratory Tests 06/08/24 09:41 Chemistry Test 06/08/24 09:41 Calcium Level 9.2 mg/dL (8.7-10.4) Urinalysis Test 05/30/24 11:14 Urine Color Yellow (Yellow) Urine Clarity Turbid (Clear) H Urine pH 5.0 (5.0-9.0) Urine Specific [place] 1.012 (1.001-1.035) Urine Protein 1+ (Negative) H Urine Ketones Negative (Negative) Urine Blood 2+ /uL (Negative) H Urine Nitrite Negative (Negative) Urine Bilirubin Negative (Negative) Urine Urobilinogen Normal mg/dL (Negative) Urine Leukocyte Esterase 1+ /uL (Negative) Urine RBC 5 /hpf (0 - 3) Urine WBC 17 /hpf (0 - 3) Urine Squamous Epithelial Cells None seen /hpf (<5) Urine Bacteria Few /hpf (None Seen) H Urine Hyaline Casts Few /lpf (0 - 2) Urine Mucus Few (None Seen) Urine Creatinine 77.37 mg/dL (30.0-125.0) Urine Protein/Creatinine Ratio 1.05 Urine Sodium 64 mmol/L (40-220) Urine Glucose Normal mg/dL (Normal) Urine Total Protein 80.9 mg/dL (1-14) H Microbiology Microbiology Date/Time Source Procedure Growth Status 06/03/24 16:46 Urine - [place] Urine Culture - Final Complete 05/30/24 16:37 Stool Clostridium difficile Toxin Assay - Final Complete 05/30/24 03:15 Nose MRSA Screen - Final Complete 05/29/24 21:15 Sputum Gram Stain - Final Complete 05/29/24 21:15 Respiratory Culture - Final Acinetobacter baumannii Complete 05/29/24 19:38 Blood Blood Culture - Final NO GROWTH AFTER 5 DAYS OF INCUBATION. Complete Labs and/or images reviewed: Labs reviewed by me, Image(s) reviewed by me Assessment/Plan Assessment/Plan update-06/08 - patient altered which may be his baseline or new baseline. will set baseline with family. he is confused wanting to climb out of bed while also being unsteady in gait/posture and is fall risk. sitter will be needed. he appears to be hungry and wants to eat ice chips, which we kel monitor and allow. #Septic shock 2/2 urosepsis - ucx w Ecoli ESBL - on meropenem (prior on linezolid > vanc; s/p levophed) #Hypernatremia (improving) - giving NGT free water 200mL q6h #physical deconditioning - PT to follow #acute transaminitis #Acute hypoxic resp fail due to ARDS/CHF - extubated 06/04/24 #AB on CKD from [facility] (setting of sepsis, cardiogenic shock) #ADHF (hx HFrEF 5%) - euvolemic now - cont home lasix po. #cardiogenic shock - off levophed #acute encaphalopathy - improving to baseline. #type2 NSTEMI continue sitter as patient is fall risk and confused. GI ppx dvt ppx lovenox cont med/surg admission Plan discussed with: Other Date of Service: Jun 08, 2024 Billing Provider: ZULMA GALVAN MD Common Visit Codes: [id number] INP/OBS CARE(HIGH) ZULMA GALVAN MD Jun 08, 2024 18:56
[2024-06-09] VITALS (8 sets, daily range): BP systolic 107–141; BP diastolic 46–69; PULSE 60–90; RESP 18–19; TEMP 97.5–98.2; O2SAT 92–99
--- NOTE | 2024-06-09 05:48 | DVH ---
CHEST RADIOGRAPH Indication:NG TUBE PLACEMENT Technique: Single frontal view of the chest was obtained COMPARISON: XY CHEST PORTABLE on DOS: 06/08/24, XY CHEST PORTABLE on DOS: 06/08/24, XY CHEST PORTABLE on DOS: 06/07/24 FINDINGS: Lines and Tubes: Nasogastric tube in satisfactory position. Lungs: Mild diffuse increased interstitial prominence. Pleura: No effusion. No pneumothorax. Cardiomediastinal contours: Unremarkable Bones: Unremarkable IMPRESSION: Unchanged pulmonary vascular congestion.
[2024-06-09 05:54] LABS: Basophils # (auto) 0.1 10 ^3/uL (0-0.2); Eosinophils # (auto) 0.3 10 ^3/uL (0-0.8); Hematocrit 41.7 % (41.0-53.0); Lymphocytes % (auto) 8.2 % (10.0-50.0); Red Cell Distribution Width 15.8 % (11.8-14.3)
[2024-06-09 05:56] LABS: Basophils % (auto) 0.6 % (0.0-2.0); Hemoglobin 13.2 g/dL (13.5-17.5); Mean Corpuscular Hemoglobin 32.7 pg (28.0-32.0); Mean Corpuscular Hgb Conc. 31.7 g/dL (32.0-36.0); Monocytes # (auto) 0.8 10 ^3/uL (0-1.3); Monocytes % (auto) 6.6 % (0.0-12.0); Neutrophils # (auto) 10.4 10 ^3/uL (1.6-8.6); Neutrophils % (auto) 82.6 % (37.0-80.0); Nucleated Red Blood Cells % 0.2 %; Platelet Count (auto) 108 10^3/uL (140-450); Red Blood Cells 4.05 10^6/uL (4.5-5.90); White Blood Cell 12.6 10^3/uL (4.4-10.8)
[2024-06-09 06:10] LABS: Alanine Aminotransferase 150 U/L (7-40); Albumin 2.8 g/dL (3.2-4.8); Alkaline Phosphatase 295 U/L (46-116); Anion Gap 4 (5-15); Aspartate Aminotransferase 178 U/L (13-40); BUN/Creatinine Ratio 26.1 (10.0-20.0); Bilirubin, Total 0.5 mg/dL (0.2-1.0); Blood Urea Nitrogen 24 mg/dL (9-23); Calcium 8.8 mg/dL (8.7-10.4); Carbon Dioxide 33 mmol/L (20-31); Chloride 117 mmol/L (98-107); Glucose 88 mg/dL (74-106); Potassium 4.4 mmol/L (3.5-5.1); Sodium 154 mmol/L (136-145); Total Protein 5.9 g/dL (5.7-8.2)
[2024-06-09] MEDS: FREE WATER GT SCH (09:45)
--- NOTE | 2024-06-09 15:22 | DVHPN2 ---
Subjective HPI: 83/male, past medical history: Heart failure reduced ejection fraction 5%, CKD, cardiogenic shock, UTI, CVA, dementia, hypertension Patient is 83-year-old male who brought to the hospital via EMS for altered level of consciousness from [facility]. Patient was recently hospitalized for cardiogenic shock and sent to group home facility for treatment of UTI secondary to E coli ESBL treated with ertapenem IV. During stay at group home facility, patient was confused, altered that listed patient was brought to the emergency department for evaluation. With further evaluation, patient was intubated by ER provider to protect airway on admission day 05/30/2024. Hospital course: Patient was intubated with mechanical ventilation volume control. Treated with IV antibiotic meropenem, vancomycin, vasopressors including Levophed and dobutamine initially. Respiratory culture was done which came positive for Acinetobacter baumannii sensitive to meropenem. Patient continued on antibiotic. Over the course of hospitalization patient's FiO2 requirement reduce to 45 %. Patient continued to have clear lungs without accessory oxygen requirement. WBC count significantly improved over the course of hospitalization as well with kidney function improvement as well. Extubated on 06/04/2024. remove subclavian central line. order for midline. Patient pulled off NG tube tube but new ng tube inserted to continue nutrition/fluid. patient downgrade to hospital medicine on 06/08 update -06/08 - patient altered which may be his baseline or new baseline. will set baseline with family. he is confused wanting to climb out of bed while also being unsteady in gait/posture and is fall risk. sitter will be needed. he appears to be hungry and wants to eat ice chips, which we kel monitor and allow. Patient is seen by me during rounds today. Baseline mental status, asking for methods to be removed, pulled out NG tube overnight. NG to pre placed and confirmed in place. Hypernatremia persists, increase free water. Delirium Reviewed: Care Plan, H&P, Labs, Medications, Previous Orders Changes from previous H/P or p: No Changes General: Per HPI Objective Vitals Vital Signs Date Time Temp Pulse Resp B/P (MAP) Pulse Ox O2 Delivery O2 Flow Rate FiO2 06/09/24 09:17 113/51 06/09/24 09:00 97.5 65 19 93 97.5 06/09/24 08:05 Nasal Cannula* 5 40 Intake/Output Intake and Output 06/09/24 07:00 Intake Total 850 ml Output Total 900 ml Balance -50 ml Intake Oral 0 ml IV Total 150 ml Tube Feeding 300 ml Other 400 ml Output Urine Total 900 ml Exam Alert Cachectic PERRLA Clear breath sounds bilaterally S1-S2 regular rate and rhythm no murmur Abdomen soft nontender, no hepatomegaly Larson in place No lower extremity edema Musculoskeletal: Weak motor strength RUE, Weak motor strength LUE, Weak motor strength RLE, Weak motor strength LLE Psych/Mental Status: Mental status NL, Mood NL Medications Current Medications Medications Dose Ordered Sig/Elpidio Route Start Time Stop Time Status Last Admin Dose Admin Ondansetron HCl 4 mg Q4HP PRN IV 05/29/24 22:30 Acetaminophen 650 mg Q6HP PRN PO 05/29/24 22:30 06/05/24 22:36 650 MG Nitroglycerin 0.4 mg Q5MINP PRN SL 05/29/24 22:30 Enteral Nutritional Formula 1,000 ml 30ML/HR GT 05/31/24 17:15 Enoxaparin Sodium 30 mg DAILY SC 06/05/24 10:00 06/09/24 09:17 30 MG Aspirin 81 mg DAILY GT 06/05/24 10:00 06/09/24 09:17 81 MG Atorvastatin Calcium 10 mg HS GT 06/05/24 22:00 06/08/24 22:12 10 MG Pantoprazole Sodium 40 mg DAILY IV 06/05/24 10:00 06/09/24 09:17 40 MG Meropenem 50 ml @ 17 mls/hr Q8H IV 06/05/24 10:00 06/09/24 09:16 17 MLS/HR Furosemide 20 mg DAILY IV 06/08/24 11:00 06/09/24 09:17 20 MG Purified Water 200 ml Q4HR GT 06/09/24 09:45 06/09/24 13:32 200 ML Laboratory Results Laboratory Tests 06/09/24 05:06 Chemistry Test 06/09/24 05:06 Albumin 2.8 g/dL (3.2-4.8) L Calcium Level 8.8 mg/dL (8.7-10.4) Total Protein 5.9 g/dL (5.7-8.2) LFT Test 06/09/24 05:06 Alanine Aminotransferase (ALT) 150 U/L (7-40) H Alkaline Phosphatase 295 U/L (46-116) H Aspartate Amino Transferase (AST) 178 U/L (13-40) H Total Bilirubin 0.5 mg/dL (0.2-1.0) Urinalysis Test 05/30/24 11:14 Urine Color Yellow (Yellow) Urine Clarity Turbid (Clear) H Urine pH 5.0 (5.0-9.0) Urine Specific [place] 1.012 (1.001-1.035) Urine Protein 1+ (Negative) H Urine Ketones Negative (Negative) Urine Blood 2+ /uL (Negative) H Urine Nitrite Negative (Negative) Urine Bilirubin Negative (Negative) Urine Urobilinogen Normal mg/dL (Negative) Urine Leukocyte Esterase 1+ /uL (Negative) Urine RBC 5 /hpf (0 - 3) Urine WBC 17 /hpf (0 - 3) Urine Squamous Epithelial Cells None seen /hpf (<5) Urine Bacteria Few /hpf (None Seen) H Urine Hyaline Casts Few /lpf (0 - 2) Urine Mucus Few (None Seen) Urine Creatinine 77.37 mg/dL (30.0-125.0) Urine Protein/Creatinine Ratio 1.05 Urine Sodium 64 mmol/L (40-220) Urine Glucose Normal mg/dL (Normal) Urine Total Protein 80.9 mg/dL (1-14) H Microbiology Microbiology Date/Time Source Procedure Growth Status 06/03/24 16:46 Urine - [place] Urine Culture - Final Complete 05/30/24 16:37 Stool Clostridium difficile Toxin Assay - Final Complete 05/30/24 03:15 Nose MRSA Screen - Final Complete 05/29/24 21:15 Sputum Gram Stain - Final Complete 05/29/24 21:15 Respiratory Culture - Final Acinetobacter baumannii Complete 05/29/24 19:38 Blood Blood Culture - Final NO GROWTH AFTER 5 DAYS OF INCUBATION. Complete Labs and/or images reviewed: Labs reviewed by me, Image(s) reviewed by me Assessment/Plan Assessment/Plan #Septic shock 2/2 urosepsis - ucx w Ecoli ESBL - on meropenem (prior on linezolid > vanc; s/p levophed) #Hypernatremia (improving) - giving NGT free water 200mL q6h #physical deconditioning - PT to follow #acute transaminitis #Acute hypoxic resp fail due to ARDS/CHF - extubated 06/04/24 #AB on CKD from [facility] (setting of sepsis, cardiogenic shock) #ADHF (hx HFrEF 5%) - euvolemic now - cont home lasix po. #cardiogenic shock - off levophed #acute encaphalopathy - improving to baseline. #type2 NSTEMI continue sitter as patient is fall risk and confused. GI ppx dvt ppx lovenox Increase free water, 200 Q 4 Delirium precaution, open Blinds, encouraged family at bedside Avoid insomnia, avoid vital signs at night Plan discussed with: Patient My Orders Orders - SALO RICE MD Procedure Category Date Status Time Free Water PHA 06/09/24 In Process 09:45 Code Status CODE 06/09/24 Transmitted 12:31 Date of Service: Jun 09, 2024 Billing Provider: SALO RICE MD Common Visit Codes: [id number] INP/OBS CARE(HIGH) SALO RICE MD Jun 09, 2024 15:22
[2024-06-10] VITALS (7 sets, daily range): BP systolic 126–139; BP diastolic 48–66; PULSE 54–77; RESP 18–22; TEMP 97.6–98; O2SAT 92–95
[2024-06-10 06:30] LABS: Basophils # (auto) 0.1 10 ^3/uL (0-0.2); Basophils % (auto) 0.8 % (0.0-2.0); Eosinophils # (auto) 0.3 10 ^3/uL (0-0.8); Eosinophils % (auto) 4.2 % (0.0-7.0); Hematocrit 40.6 % (41.0-53.0); Hemoglobin 13.3 g/dL (13.5-17.5); Lymphocytes # (auto) 0.9 10 ^3/uL (0.4-5.4); Lymphocytes % (auto) 13.5 % (10.0-50.0); Mean Corpuscular Hemoglobin 32.9 pg (28.0-32.0); Mean Corpuscular Hgb Conc. 32.7 g/dL (32.0-36.0); Mean Corpuscular Volume 100.6 fL (80.0-100.0); Monocytes # (auto) 0.5 10 ^3/uL (0-1.3); Monocytes % (auto) 6.8 % (0.0-12.0); Neutrophils # (auto) 5.2 10 ^3/uL (1.6-8.6); Neutrophils % (auto) 74.7 % (37.0-80.0); Nucleated Red Blood Cells % 0.2 %; Platelet Count (auto) 111 10^3/uL (140-450); Red Blood Cells 4.03 10^6/uL (4.5-5.90); Red Cell Distribution Width 14.9 % (11.8-14.3)
[2024-06-10 06:42] LABS: Alanine Aminotransferase 181 U/L (7-40); Alkaline Phosphatase 306 U/L (46-116); Aspartate Aminotransferase 197 U/L (13-40); BUN/Creatinine Ratio 30.3 (10.0-20.0); Bilirubin, Total 0.7 mg/dL (0.2-1.0); Blood Urea Nitrogen 27 mg/dL (9-23); Calcium 9.1 mg/dL (8.7-10.4); Chloride 116 mmol/L (98-107); Glucose 98 mg/dL (74-106); Potassium 4.1 mmol/L (3.5-5.1); Sodium 158 mmol/L (136-145); Total Protein 5.9 g/dL (5.7-8.2)
[2024-06-10 06:54] LABS: Anion Gap 1.99999 (5-15)
[2024-06-10 06:56] LABS: Carbon Dioxide > 40 mmol/L (20-31)
--- NOTE | 2024-06-10 11:03 | DVHPN2 ---
Progress Note Date Seen: Jun 10, 2024 Has the PT tested + for MRSA If YES, has PT been informed?: No Medical Necessity Reason Pt with a Central, PICC or Fol: Yes The following are medically ne: Mays Catheter Reason for mays catheter: Strict I&O Objective vital signs Vital Sign Date Time Temp Pulse Resp B/P (MAP) Pulse Ox O2 Delivery O2 Flow Rate FiO2 06/10/24 09:16 136/62 06/10/24 09:00 97.6 77 18 95 97.6 06/10/24 07:33 Nasal Cannula* 5 40 Total Intake and Output 06/09/24 06/09/24 06/10/24 15:00 23:00 07:00 Intake Total 50 ml 0 ml 0 ml Output Total 950 ml 300 ml Balance 50 ml -950 ml -300 ml medications Current Medications Medications Dose Ordered Sig/Elpidio Route Start Time Stop Time Status Last Admin Dose Admin Ondansetron HCl 4 mg Q4HP PRN IV 05/29/24 22:30 Acetaminophen 650 mg Q6HP PRN PO 05/29/24 22:30 06/09/24 21:44 650 MG Nitroglycerin 0.4 mg Q5MINP PRN SL 05/29/24 22:30 Enteral Nutritional Formula 1,000 ml 30ML/HR GT 05/31/24 17:15 Enoxaparin Sodium 30 mg DAILY SC 06/05/24 10:00 06/10/24 09:16 30 MG Aspirin 81 mg DAILY GT 06/05/24 10:00 06/10/24 09:17 81 MG Atorvastatin Calcium 10 mg HS GT 06/05/24 22:00 06/09/24 21:45 10 MG Pantoprazole Sodium 40 mg DAILY IV 06/05/24 10:00 06/10/24 09:16 40 MG Meropenem 50 ml @ 17 mls/hr Q8H IV 06/05/24 10:00 06/10/24 09:17 17 MLS/HR Furosemide 20 mg DAILY IV 06/08/24 11:00 06/10/24 09:16 20 MG Purified Water 200 ml Q4HR GT 06/09/24 09:45 06/10/24 09:16 200 ML Examination: GENERAL:Abnormal, HEENT:Abnormal, LUNGS:Abnormal, CVS:Abnormal, ABDOMEN:Abnormal laboratory and microbiology Laboratory Tests 06/10/24 05:43 Test 06/10/24 05:43 Range/Units Serum Glucose 98 74-106 mg/dL Microbiology Date/Time Source Procedure Growth Status 06/03/24 16:46 Urine - [place] Urine Culture - Final Complete 05/30/24 16:37 Stool Clostridium difficile Toxin Assay - Final Complete 05/30/24 03:15 Nose MRSA Screen - Final Complete 05/29/24 21:15 Sputum Gram Stain - Final Complete 05/29/24 21:15 Respiratory Culture - Final Acinetobacter baumannii Complete 05/29/24 19:38 Blood Blood Culture - Final NO GROWTH AFTER 5 DAYS OF INCUBATION. Complete Problem List/Assessment/Plan Problem List/Assessment/Plan end stage HF ckd HTN bradycardia recent nstemi cont pressors , can wean down as feasible low dose dopamine as needed--started and has helped hemodynamics wean off levophed cont diuretics cpap daily for exercise poor prognosis--consider goals of care if pt gets extubated/ risk of repeat acute HF is very high recommend hospice eval give 20 mg iv lasix daily as pt is NPO severe hypernatremia and elevated bicarb, ---please correct as per hospitalist on free water flushes Plan discussed with: Other (rn) Dietary Evaluation Review Comments: 1) If GI is preferred route consider Jevity 1.2 @ 70 ml/hr goal rate as tolerated 2) If pt remains NPO >7days consider TPN to meet at least 75% of estimated needs 3) Advance pt diet to a Renal Specific K2,low phos,MILLER,2gmNa,50gPro diet 3) Continue current plan of care Expected Outcomes/Goals: 1) Pt to receive adequate nutrition support with 72 hrs of NPO status 2) Pt diet to advance 3) F/U in 2-3 days Date of Service: Jun 10, 2024 Billing Provider: ASHLEIGH MANZO MD Common Visit Codes: NOT BILLABLE ASHLEIGH MANZO MD Jun 10, 2024 11:03
[2024-06-10] MEDS ORDERED: FAMOTIDINE (10MG/ML) 2ML VL IV ONE (13:45)
--- NOTE | 2024-06-10 18:44 | DVHPN2 ---
Subjective HPI: 83/male, past medical history: Heart failure reduced ejection fraction 5%, CKD, cardiogenic shock, UTI, CVA, dementia, hypertension Patient is 83-year-old male who brought to the hospital via EMS for altered level of consciousness from [facility] ([place], [place]) acute [facility]. Patient was recently hospitalized for cardiogenic shock and sent to custodial facility for treatment of UTI secondary to E coli ESBL treated with ertapenem IV. During stay at custodial facility, patient was confused, altered that listed patient was brought to the emergency department for evaluation. With further evaluation, patient was intubated by ER provider to protect airway on admission day 05/30/2024. Hospital course: Patient was intubated with mechanical ventilation volume control. Treated with IV antibiotic meropenem, vancomycin, vasopressors including Levophed and dobutamine initially. Respiratory culture was done which came positive for Acinetobacter baumannii sensitive to meropenem. Patient continued on antibiotic. Over the course of hospitalization patient's FiO2 requirement reduce to 45 %. Patient continued to have clear lungs without accessory oxygen requirement. WBC count significantly improved over the course of hospitalization as well with kidney function improvement as well. Extubated on 06/04/2024. remove subclavian central line. order for midline. Patient pulled off NG tube tube but new ng tube inserted to continue nutrition/fluid. patient downgrade to hospital medicine on 06/08 update -06/08 - patient altered which may be his baseline or new baseline. will set baseline with family. he is confused wanting to climb out of bed while also being unsteady in gait/posture and is fall risk. sitter will be needed. he appears to be hungry and wants to eat ice chips, which we kel monitor and allow. Patient is seen by me during rounds today. Mental status unchanged, hyponatremia worsened even after increasing free water, along with metabolic alkalosis. Fluid status seems euvolemic. We will hold Lasix dose see Reviewed: Care Plan, H&P, Labs, Medications, Previous Orders Changes from previous H/P or p: No Changes General: Per HPI Objective Vitals Vital Signs Date Time Temp Pulse Resp B/P (MAP) Pulse Ox O2 Delivery O2 Flow Rate FiO2 06/10/24 17:00 98.0 57 20 139/56 (83) 95 98.0 06/10/24 07:33 Nasal Cannula* 5 40 Intake/Output Intake and Output 06/10/24 04:00 Intake Total 100 ml Output Total 950 ml Balance -850 ml Intake Oral 0 ml IV Total 100 ml Output Urine Total 950 ml Exam Alert Cachectic PERRLA Clear breath sounds bilaterally S1-S2 regular rate and rhythm no murmur Abdomen soft nontender, no hepatomegaly Larson in place No lower extremity edema Musculoskeletal: Weak motor strength RUE, Weak motor strength LUE, Weak motor strength RLE, Weak motor strength LLE Psych/Mental Status: Mental status NL, Mood NL Medications Current Medications Medications Dose Ordered Sig/Elpidio Route Start Time Stop Time Status Last Admin Dose Admin Ondansetron HCl 4 mg Q4HP PRN IV 05/29/24 22:30 Acetaminophen 650 mg Q6HP PRN PO 05/29/24 22:30 06/09/24 21:44 650 MG Nitroglycerin 0.4 mg Q5MINP PRN SL 05/29/24 22:30 Enteral Nutritional Formula 1,000 ml 30ML/HR GT 05/31/24 17:15 Enoxaparin Sodium 30 mg DAILY SC 06/05/24 10:00 06/10/24 09:16 30 MG Aspirin 81 mg DAILY GT 06/05/24 10:00 06/10/24 09:17 81 MG Atorvastatin Calcium 10 mg HS GT 06/05/24 22:00 06/09/24 21:45 10 MG Pantoprazole Sodium 40 mg DAILY IV 06/05/24 10:00 06/10/24 09:16 40 MG Meropenem 50 ml @ 17 mls/hr Q8H IV 06/05/24 10:00 06/10/24 17:27 17 MLS/HR Furosemide 20 mg DAILY IV 06/08/24 11:00 06/10/24 09:16 20 MG Purified Water 200 ml Q4HR GT 06/09/24 09:45 06/10/24 17:27 200 ML Laboratory Results Laboratory Tests 06/10/24 05:43 Chemistry Test 06/10/24 05:43 Albumin 3.0 g/dL (3.2-4.8) L Calcium Level 9.1 mg/dL (8.7-10.4) Total Protein 5.9 g/dL (5.7-8.2) LFT Test 06/10/24 05:43 Alanine Aminotransferase (ALT) 181 U/L (7-40) H Alkaline Phosphatase 306 U/L (46-116) H Aspartate Amino Transferase (AST) 197 U/L (13-40) H Total Bilirubin 0.7 mg/dL (0.2-1.0) Urinalysis Test 05/30/24 11:14 Urine Color Yellow (Yellow) Urine Clarity Turbid (Clear) H Urine pH 5.0 (5.0-9.0) Urine Specific [place] 1.012 (1.001-1.035) Urine Protein 1+ (Negative) H Urine Ketones Negative (Negative) Urine Blood 2+ /uL (Negative) H Urine Nitrite Negative (Negative) Urine Bilirubin Negative (Negative) Urine Urobilinogen Normal mg/dL (Negative) Urine Leukocyte Esterase 1+ /uL (Negative) Urine RBC 5 /hpf (0 - 3) Urine WBC 17 /hpf (0 - 3) Urine Squamous Epithelial Cells None seen /hpf (<5) Urine Bacteria Few /hpf (None Seen) H Urine Hyaline Casts Few /lpf (0 - 2) Urine Mucus Few (None Seen) Urine Creatinine 77.37 mg/dL (30.0-125.0) Urine Protein/Creatinine Ratio 1.05 Urine Sodium 64 mmol/L (40-220) Urine Glucose Normal mg/dL (Normal) Urine Total Protein 80.9 mg/dL (1-14) H Microbiology Microbiology Date/Time Source Procedure Growth Status 06/03/24 16:46 Urine - [place] Urine Culture - Final Complete 05/30/24 16:37 Stool Clostridium difficile Toxin Assay - Final Complete 05/30/24 03:15 Nose MRSA Screen - Final Complete 05/29/24 21:15 Sputum Gram Stain - Final Complete 05/29/24 21:15 Respiratory Culture - Final Acinetobacter baumannii Complete 05/29/24 19:38 Blood Blood Culture - Final NO GROWTH AFTER 5 DAYS OF INCUBATION. Complete Labs and/or images reviewed: Labs reviewed by me, Image(s) reviewed by me Assessment/Plan Assessment/Plan #Septic shock 2/2 urosepsis - ucx w Ecoli ESBL - on meropenem (prior on linezolid > vanc; s/p levophed) #Hypernatremia (improving) - giving NGT free water 200mL q6h #physical deconditioning - PT to follow #acute transaminitis #Acute hypoxic resp fail due to ARDS/CHF - extubated 06/04/24 #AB on CKD from [facility] (setting of sepsis, cardiogenic shock) #ADHF (hx HFrEF 5%) - euvolemic now - cont home lasix po. #cardiogenic shock - off levophed #acute encaphalopathy - improving to baseline. #type2 NSTEMI Metabolic alkalosis, possible contraction continue sitter as patient is fall risk and confused. GI ppx dvt ppx lovenox Increase free water, 200 Q 4 Delirium precaution, open Blinds, encouraged family at bedside Avoid insomnia, avoid vital signs at night Plan discussed with: Patient Date of Service: Jun 10, 2024 Billing Provider: SALO RICE MD Common Visit Codes: [id number] INP/OBS CARE(HIGH) SALO RICE MD Jun 10, 2024 18:44
--- NOTE | 2024-06-10 22:26 | DVHPN2 ---
Progress Note - Dictate Date Seen: Jun 09, 2024 Has the PT tested + for MRSA If YES, has PT been informed?: No Medical Necessity Reason Pt with a Central, PICC or Fol: Yes The following are medically ne: Mays Catheter Reason for mays catheter: Strict I&O Subjective Patient seen and examined at bedside. On supplemental oxygen Overnight events reviewed vital signs Vital Sign Date Time Temp Pulse Resp B/P (MAP) Pulse Ox O2 Delivery O2 Flow Rate FiO2 06/10/24 20:07 Nasal Cannula* 5 40 06/10/24 17:00 98.0 57 20 139/56 (83) 95 98.0 Total Intake and Output 06/09/24 06/09/24 06/10/24 15:00 23:00 07:00 Intake Total 50 ml 0 ml 0 ml Output Total 950 ml 300 ml Balance 50 ml -950 ml -300 ml medications Current Medications Medications Dose Ordered Sig/Elpidio Route Start Time Stop Time Status Last Admin Dose Admin Ondansetron HCl 4 mg Q4HP PRN IV 05/29/24 22:30 Acetaminophen 650 mg Q6HP PRN PO 05/29/24 22:30 06/09/24 21:44 650 MG Nitroglycerin 0.4 mg Q5MINP PRN SL 05/29/24 22:30 Enteral Nutritional Formula 1,000 ml 30ML/HR GT 05/31/24 17:15 Enoxaparin Sodium 30 mg DAILY SC 06/05/24 10:00 06/10/24 09:16 30 MG Aspirin 81 mg DAILY GT 06/05/24 10:00 06/10/24 09:17 81 MG Atorvastatin Calcium 10 mg HS GT 06/05/24 22:00 06/09/24 21:45 10 MG Pantoprazole Sodium 40 mg DAILY IV 06/05/24 10:00 06/10/24 09:16 40 MG Meropenem 50 ml @ 17 mls/hr Q8H IV 06/05/24 10:00 06/10/24 17:27 17 MLS/HR Purified Water 200 ml Q4HR GT 06/09/24 09:45 06/10/24 17:27 200 ML Furosemide 20 mg DAILY IV 06/11/24 10:00 objective Gen.: Patient lying in bed in no apparent distress. On supplemental oxygen Head: Normocephalic, atraumatic Eyes: EOMI/PERRLA. Ears: Normal hearing. Normal anatomy. Neck/trachea: Trachea midline, supple. Nose: Normal external anatomy. Mouth: Moist mucous membranes. Chest: Fair air entry bilaterally. No wheezing or rhonchi. Cardio vascular: Positive S1, positive S2. Regular rate and rhythm. Abdomen: Positive bowel sounds in all 4 quadrants. Soft, non-tender, non- distended. : Deferred. Rectal: Deferred Skin: Warm, dry. Extremities: 2+ radial pulses bilaterally. No lower extremity edema. Neuro: Awake, alert, oriented x3. No gross motor or sensory deficits. Cranial nerves II through XII intact. Gait not assessed. laboratory and microbiology Laboratory Tests 06/10/24 05:43 Test 06/10/24 05:43 Range/Units Serum Glucose 98 74-106 mg/dL Assessment/Plan Impression: Acute hypoxic respiratory failure Pneumonia with Acinetobacter baumannii Acute on chronic systolic heart failure with ejection fraction of 5% UTI with ESBL Acute kidney injury Sepsis Hypernatremia Severe protein malnutrition Events: Supplemental o2 5 LPM via NC HOB elevation Aspiration pre-cautions Pt removed NGT CXR reviewed. Pulmonary vascular congestion. Continue antibiotics Leucocytosis Receiving Free water. Diurese with Lasix. Labs and imaging reviewed. Rest of plan as noted below. Plan: Supplemental o2 Continue antibiotics. F/u cultures. Sputum notable For Acinetobacter baumanii Monitor renal function Monitor electrolytes. Supplement as necessary. GI/DVT prophylaxis. Prognosis: Poor given multiple comorbidities. Rest of plan per hospitalist and other consultants. Thank you for allowing me to participate in this patient's care. Further recommendations will depend on patient's clinical course. Please do not hesitate to contact me if you have any questions or concerns. This medical document was created using an electronic medical record system with [employer] dictation system. Although this document has been carefully reviewed, there may still be some phonetic and typographical errors. These areas are purely typographical due to imperfections of the software programs, and do not reflect any compromise in the patient's medical care. Dietary Evaluation Review Comments: 1) If GI is preferred route consider Jevity 1.2 @ 70 ml/hr goal rate as tolerated 2) If pt remains NPO >7days consider TPN to meet at least 75% of estimated needs 3) Advance pt diet to a Renal Specific K2,low phos,MILLER,2gmNa,50gPro diet 3) Continue current plan of care Expected Outcomes/Goals: 1) Pt to receive adequate nutrition support with 72 hrs of NPO status 2) Pt diet to advance 3) F/U in 2-3 days Plan discussed with: Other (RN, MD) MODE MACKEY MD Jun 10, 2024 22:26
--- NOTE | 2024-06-10 22:28 | DVHPN2 ---
Progress Note - Dictate Date Seen: Jun 10, 2024 Has the PT tested + for MRSA If YES, has PT been informed?: No Medical Necessity Reason Pt with a Central, PICC or Fol: Yes The following are medically ne: Mays Catheter Reason for mays catheter: Strict I&O Subjective Patient seen and examined at bedside. On supplemental oxygen Overnight events reviewed vital signs Vital Sign Date Time Temp Pulse Resp B/P (MAP) Pulse Ox O2 Delivery O2 Flow Rate FiO2 06/10/24 20:07 Nasal Cannula* 5 40 06/10/24 17:00 98.0 57 20 139/56 (83) 95 98.0 Total Intake and Output 06/09/24 06/09/24 06/10/24 15:00 23:00 07:00 Intake Total 50 ml 0 ml 0 ml Output Total 950 ml 300 ml Balance 50 ml -950 ml -300 ml medications Current Medications Medications Dose Ordered Sig/Elpidio Route Start Time Stop Time Status Last Admin Dose Admin Ondansetron HCl 4 mg Q4HP PRN IV 05/29/24 22:30 Acetaminophen 650 mg Q6HP PRN PO 05/29/24 22:30 06/09/24 21:44 650 MG Nitroglycerin 0.4 mg Q5MINP PRN SL 05/29/24 22:30 Enteral Nutritional Formula 1,000 ml 30ML/HR GT 05/31/24 17:15 Enoxaparin Sodium 30 mg DAILY SC 06/05/24 10:00 06/10/24 09:16 30 MG Aspirin 81 mg DAILY GT 06/05/24 10:00 06/10/24 09:17 81 MG Atorvastatin Calcium 10 mg HS GT 06/05/24 22:00 06/09/24 21:45 10 MG Pantoprazole Sodium 40 mg DAILY IV 06/05/24 10:00 06/10/24 09:16 40 MG Meropenem 50 ml @ 17 mls/hr Q8H IV 06/05/24 10:00 06/10/24 17:27 17 MLS/HR Purified Water 200 ml Q4HR GT 06/09/24 09:45 06/10/24 17:27 200 ML Furosemide 20 mg DAILY IV 06/11/24 10:00 objective Gen.: Patient lying in bed in no apparent distress. On supplemental oxygen Head: Normocephalic, atraumatic Eyes: EOMI/PERRLA. Ears: Normal hearing. Normal anatomy. Neck/trachea: Trachea midline, supple. Nose: Normal external anatomy. Mouth: Moist mucous membranes. Chest: Fair air entry bilaterally. No wheezing or rhonchi. Cardio vascular: Positive S1, positive S2. Regular rate and rhythm. Abdomen: Positive bowel sounds in all 4 quadrants. Soft, non-tender, non- distended. : Deferred. Rectal: Deferred Skin: Warm, dry. Extremities: 2+ radial pulses bilaterally. No lower extremity edema. Neuro: Awake, alert, oriented x3. No gross motor or sensory deficits. Cranial nerves II through XII intact. Gait not assessed. laboratory and microbiology Laboratory Tests 06/10/24 05:43 Test 06/10/24 05:43 Range/Units Serum Glucose 98 74-106 mg/dL Assessment/Plan Impression: Acute hypoxic respiratory failure Pneumonia with Acinetobacter baumannii Acute on chronic systolic heart failure with ejection fraction of 5% UTI with ESBL Acute kidney injury Sepsis Hypernatremia Severe protein malnutrition Events: Supplemental o2 5 LPM via NC HOB elevation Aspiration pre-cautions Pt removed NGT CXR reviewed. Pulmonary vascular congestion. Continue antibiotics Leucocytosis, resolved Receiving Free water. Diurese with Lasix. Supportive care. Cardio recs appreciated. Labs and imaging reviewed. Rest of plan as noted below. Plan: Supplemental o2 Continue antibiotics. F/u cultures. Sputum notable For Acinetobacter baumanii Monitor renal function Monitor electrolytes. Supplement as necessary. GI/DVT prophylaxis. Prognosis: Poor given multiple comorbidities. Rest of plan per hospitalist and other consultants. Thank you for allowing me to participate in this patient's care. Further recommendations will depend on patient's clinical course. Please do not hesitate to contact me if you have any questions or concerns. This medical document was created using an electronic medical record system with [employer] dictation system. Although this document has been carefully reviewed, there may still be some phonetic and typographical errors. These areas are purely typographical due to imperfections of the software programs, and do not reflect any compromise in the patient's medical care. Dietary Evaluation Review Comments: 1) If GI is preferred route consider Jevity 1.2 @ 70 ml/hr goal rate as tolerated 2) If pt remains NPO >7days consider TPN to meet at least 75% of estimated needs 3) Advance pt diet to a Renal Specific K2,low phos,MILLER,2gmNa,50gPro diet 3) Continue current plan of care Expected Outcomes/Goals: 1) Pt to receive adequate nutrition support with 72 hrs of NPO status 2) Pt diet to advance 3) F/U in 2-3 days Plan discussed with: Other (PIERO Graff MD) MODE MACKEY MD Jun 10, 2024 22:28
[2024-06-11] VITALS (8 sets, daily range): BP systolic 110–146; BP diastolic 52–76; PULSE 52–82; RESP 14–22; TEMP 98–98.6; O2SAT 90–94
--- NOTE | 2024-06-11 03:44 | DVH ---
Examination: CXRP Clinical Indication: NGT PLACEMENT VERIFICATION Comparison: None. Technique: Frontal radiograph of the chest was obtained. Findings: Patient is in rotation. Inhomogeneous radiopacities in the right mid and lower lung, suggestive of patchy consolidation. Elevated right hemidiaphragm. No pleural effusion on either side in current study. There is no pneumothorax. Mild cardiomegaly. Nasogastric tube noted with its distal end in the stomach in appropriate position. No acute osseous abnormality is seen. Impression: 1. Patchy consolidations in right mid and lower lung with elevated right hemidiaphragm. 2. Mild cardiomegaly. 3. Nasogastric tube noted with its distal end in the stomach in appropriate position. 4. Advised further evaluation with CT chest with contrast if clinically indicated. Electronically Signed 06/11/2024 03:36 Richard Walden
[2024-06-11 06:17] LABS: Basophils # (auto) 0.1 10 ^3/uL (0-0.2); Basophils % (auto) 0.6 % (0.0-2.0); Eosinophils # (auto) 0.3 10 ^3/uL (0-0.8); Eosinophils % (auto) 2.8 % (0.0-7.0); Hematocrit 46.3 % (41.0-53.0); Hemoglobin 14.4 g/dL (13.5-17.5); Lymphocytes % (auto) 10.1 % (10.0-50.0); Mean Corpuscular Hemoglobin 32.6 pg (28.0-32.0); Mean Corpuscular Hgb Conc. 31.1 g/dL (32.0-36.0); Mean Corpuscular Volume 104.6 fL (80.0-100.0); Monocytes # (auto) 0.5 10 ^3/uL (0-1.3); Monocytes % (auto) 5.2 % (0.0-12.0); Neutrophils # (auto) 7.8 10 ^3/uL (1.6-8.6); Neutrophils % (auto) 81.3 % (37.0-80.0); Nucleated Red Blood Cells % 0.3 %; Platelet Count (auto) 95 10^3/uL (140-450); Red Blood Cells 4.43 10^6/uL (4.5-5.90); Red Cell Distribution Width 16.3 % (11.8-14.3); White Blood Cell 9.6 10^3/uL (4.4-10.8)
[2024-06-11 08:34] LABS: Chloride 112 mmol/L (98-107); Potassium 3.7 mmol/L (3.5-5.1); Sodium 157 mmol/L (136-145)
[2024-06-11 08:36] LABS: Calcium 9.1 mg/dL (8.7-10.4)
[2024-06-11 08:40] LABS: BUN/Creatinine Ratio 35.9 (10.0-20.0); Blood Urea Nitrogen 28 mg/dL (9-23); Glucose 104 mg/dL (74-106)
[2024-06-11 08:48] LABS: Anion Gap 4.99999 (5-15)
[2024-06-11 08:49] LABS: Carbon Dioxide > 40 mmol/L (20-31)
--- NOTE | 2024-06-11 09:42 | DVHPN2 ---
Subjective HPI: 83/male, past medical history: Heart failure reduced ejection fraction 5%, CKD, cardiogenic shock, UTI, CVA, dementia, hypertension Patient is 83-year-old male who brought to the hospital via EMS for altered level of consciousness from [facility] acute [facility]. Patient was recently hospitalized for cardiogenic shock and sent to alf facility for treatment of UTI secondary to E coli ESBL treated with ertapenem IV. During stay at alf facility, patient was confused, altered that listed patient was brought to the emergency department for evaluation. With further evaluation, patient was intubated by ER provider to protect airway on admission day 05/30/2024. Hospital course: Patient was intubated with mechanical ventilation volume control. Treated with IV antibiotic meropenem, vancomycin, vasopressors including Levophed and dobutamine initially. Respiratory culture was done which came positive for Acinetobacter baumannii sensitive to meropenem. Patient continued on antibiotic. Over the course of hospitalization patient's FiO2 requirement reduce to 45 %. Patient continued to have clear lungs without accessory oxygen requirement. WBC count significantly improved over the course of hospitalization as well with kidney function improvement as well. Extubated on 06/04/2024. remove subclavian central line. order for midline. Patient pulled off NG tube tube but new ng tube inserted to continue nutrition/fluid. patient downgrade to hospital medicine on 06/08 update -06/08 - patient altered which may be his baseline or new baseline. will set baseline with family. he is confused wanting to climb out of bed while also being unsteady in gait/posture and is fall risk. sitter will be needed. he appears to be hungry and wants to eat ice chips, which we kel monitor and allow. - 06/11 remains at baseline. pulled NG tube again o/n. was reinserted. Reviewed: Care Plan, H&P, Labs, Medications, Previous Orders Changes from previous H/P or p: No Changes General: Per HPI Objective Vitals Vital Signs Date Time Temp Pulse Resp B/P (MAP) Pulse Ox O2 Delivery O2 Flow Rate FiO2 06/11/24 05:00 76 22 128/76 (93) 93 06/11/24 01:00 98.0 98.0 06/10/24 20:07 Nasal Cannula* 5 40 Intake/Output Intake and Output 06/11/24 07:00 Intake Total 150 ml Output Total 1425 ml Balance -1275 ml Intake Oral 0 ml IV Total 150 ml Output Urine Total 1425 ml # Bowel Movements 1 Exam General Appearance: AOx1-2. poor nourished. NAD Pulmonary/Respiratory: Chest non-tender. Clear bilateral breath sounds Cardiovascular/Chest: Regular rate and rhythm. No murmurs. No JVD. Peripheral Pulses: 2+ Radial (R). 2+ Radial (L). 2+ Pedal (R). 2+ Pedal (L) Abdominal Exam: Normal bowel sounds. Soft. Nontender. No hepatospenomegaly. No masses. NG tube present - urine mays present extremities: Negative LE edema. senile purpura present Neuro/Mental Status: A&O x 2 Musculoskeletal: Weak motor strength RUE, Weak motor strength LUE, Weak motor strength RLE, Weak motor strength LLE Psych/Mental Status: Mental status NL, Mood NL Medications Current Medications Medications Dose Ordered Sig/Elpidio Route Start Time Stop Time Status Last Admin Dose Admin Ondansetron HCl 4 mg Q4HP PRN IV 05/29/24 22:30 Acetaminophen 650 mg Q6HP PRN PO 05/29/24 22:30 06/09/24 21:44 650 MG Nitroglycerin 0.4 mg Q5MINP PRN SL 05/29/24 22:30 Enteral Nutritional Formula 1,000 ml 30ML/HR GT 05/31/24 17:15 Enoxaparin Sodium 30 mg DAILY SC 06/05/24 10:00 06/10/24 09:16 30 MG Aspirin 81 mg DAILY GT 06/05/24 10:00 06/10/24 09:17 81 MG Atorvastatin Calcium 10 mg HS GT 06/05/24 22:00 06/10/24 22:27 10 MG Pantoprazole Sodium 40 mg DAILY IV 06/05/24 10:00 06/10/24 09:16 40 MG Meropenem 50 ml @ 17 mls/hr Q8H IV 06/05/24 10:00 06/11/24 02:06 17 MLS/HR Purified Water 200 ml Q4HR GT 06/09/24 09:45 06/11/24 06:23 200 ML Furosemide 20 mg DAILY IV 06/11/24 10:00 Laboratory Results Laboratory Tests 06/11/24 04:53 06/11/24 08:07 Chemistry Test 06/11/24 08:07 Calcium Level 9.1 mg/dL (8.7-10.4) Urinalysis Test 05/30/24 11:14 Urine Color Yellow (Yellow) Urine Clarity Turbid (Clear) H Urine pH 5.0 (5.0-9.0) Urine Specific [place] 1.012 (1.001-1.035) Urine Protein 1+ (Negative) H Urine Ketones Negative (Negative) Urine Blood 2+ /uL (Negative) H Urine Nitrite Negative (Negative) Urine Bilirubin Negative (Negative) Urine Urobilinogen Normal mg/dL (Negative) Urine Leukocyte Esterase 1+ /uL (Negative) Urine RBC 5 /hpf (0 - 3) Urine WBC 17 /hpf (0 - 3) Urine Squamous Epithelial Cells None seen /hpf (<5) Urine Bacteria Few /hpf (None Seen) H Urine Hyaline Casts Few /lpf (0 - 2) Urine Mucus Few (None Seen) Urine Creatinine 77.37 mg/dL (30.0-125.0) Urine Protein/Creatinine Ratio 1.05 Urine Sodium 64 mmol/L (40-220) Urine Glucose Normal mg/dL (Normal) Urine Total Protein 80.9 mg/dL (1-14) H Microbiology Microbiology Date/Time Source Procedure Growth Status 06/03/24 16:46 Urine - [place] Urine Culture - Final Complete 05/30/24 16:37 Stool Clostridium difficile Toxin Assay - Final Complete 05/30/24 03:15 Nose MRSA Screen - Final Complete 05/29/24 21:15 Sputum Gram Stain - Final Complete 05/29/24 21:15 Respiratory Culture - Final Acinetobacter baumannii Complete 05/29/24 19:38 Blood Blood Culture - Final NO GROWTH AFTER 5 DAYS OF INCUBATION. Complete Labs and/or images reviewed: Labs reviewed by me, Image(s) reviewed by me Assessment/Plan Assessment/Plan update-06/11 - patient altered which may be his baseline or new baseline. will set baseline with family. he is confused wanting to climb out of bed while also being unsteady in gait/posture and is fall risk. sitter will be needed. he appears to be hungry and wants to eat ice chips, which we kel monitor and allow. #Septic shock 2/2 urosepsis - ucx w Ecoli ESBL - on meropenem (prior on linezolid > vanc; s/p levophed) #alkalosis bicarb high - will get ABG. dry on exam, hold iv lasix for today #Hypernatremia (improving) - giving NGT free water 200mL q4h #aspiration risk- [employer] today #physical deconditioning - PT to follow. still with mays will assess ability to sit beside for chance of mays removal. #acute transaminitis #Acute hypoxic resp fail due to ARDS/CHF - extubated 06/04/24 #AB on CKD from [facility] (setting of sepsis, cardiogenic shock) #ADHF (hx HFrEF 5%) - euvolemic now - cont home lasix po. #cardiogenic shock - off levophed #acute encaphalopathy - improving to baseline. #type2 NSTEMI continue sitter as patient is fall risk and confused. GI ppx dvt ppx lovenox cont med/surg admission Plan discussed with: Patient My Orders Orders - ZULMA GALVAN MD Procedure Category Date Status Time Chest Portable XY 06/11/24 Resulted 00:49 * Swallow Request ST 06/11/24 Transmitted 08:01 Pt Request For Service PT 06/11/24 Logged 09:35 Date of Service: Jun 11, 2024 Billing Provider: ZULMA GALVAN MD Common Visit Codes: [id number] INP/OBS CARE(HIGH) ZULMA GALVAN MD Jun 11, 2024 09:42
[2024-06-11] MEDS ORDERED: FUROSEMIDE 20 MG/2 ML VIAL IV SCH (10:00)
[2024-06-11 10:56] LABS: Base Excess 12.4 mmol/L (-2.0-3.0)
--- NOTE | 2024-06-11 10:58 | DVHPN2 ---
Progress Note Date Seen: Jun 11, 2024 Has the PT tested + for MRSA If YES, has PT been informed?: No Medical Necessity Reason Pt with a Central, PICC or Fol: Yes The following are medically ne: Mays Catheter Reason for mays catheter: Strict I&O Subjective Patient reports: No new complaints Objective vital signs Vital Sign Date Time Temp Pulse Resp B/P (MAP) Pulse Ox O2 Delivery O2 Flow Rate FiO2 06/11/24 08:00 Nasal Cannula* 5 40 06/11/24 05:00 76 22 128/76 (93) 93 06/11/24 01:00 98.0 98.0 Total Intake and Output 06/10/24 06/10/24 06/11/24 14:59 22:59 06:59 Intake Total 50 ml 50 ml 50 ml Output Total 1050 ml 375 ml Balance 50 ml -1000 ml -325 ml medications Current Medications Medications Dose Ordered Sig/Elpidio Route Start Time Stop Time Status Last Admin Dose Admin Ondansetron HCl 4 mg Q4HP PRN IV 05/29/24 22:30 Acetaminophen 650 mg Q6HP PRN PO 05/29/24 22:30 06/09/24 21:44 650 MG Nitroglycerin 0.4 mg Q5MINP PRN SL 05/29/24 22:30 Enteral Nutritional Formula 1,000 ml 30ML/HR GT 05/31/24 17:15 Enoxaparin Sodium 30 mg DAILY SC 06/05/24 10:00 06/10/24 09:16 30 MG Aspirin 81 mg DAILY GT 06/05/24 10:00 06/11/24 09:19 81 MG Atorvastatin Calcium 10 mg HS GT 06/05/24 22:00 06/10/24 22:27 10 MG Pantoprazole Sodium 40 mg DAILY IV 06/05/24 10:00 06/11/24 09:21 40 MG Meropenem 50 ml @ 17 mls/hr Q8H IV 06/05/24 10:00 06/11/24 09:20 17 MLS/HR Purified Water 200 ml Q4HR GT 06/09/24 09:45 06/11/24 09:26 200 ML Examination: GENERAL:Abnormal, HEENT:Abnormal, LUNGS:Abnormal, CVS:Abnormal, ABDOMEN:Abnormal laboratory and microbiology Laboratory Tests 06/11/24 08:07 06/11/24 04:53 Test 06/11/24 08:07 Range/Units Serum Glucose 104 74-106 mg/dL Microbiology Date/Time Source Procedure Growth Status 06/03/24 16:46 Urine - Mays Port Urine Culture - Final Complete 05/30/24 16:37 Stool Clostridium difficile Toxin Assay - Final Complete 05/30/24 03:15 Nose MRSA Screen - Final Complete 05/29/24 21:15 Sputum Gram Stain - Final Complete 05/29/24 21:15 Respiratory Culture - Final Acinetobacter baumannii Complete 05/29/24 19:38 Blood Blood Culture - Final NO GROWTH AFTER 5 DAYS OF INCUBATION. Complete Problem List/Assessment/Plan Problem List/Assessment/Plan end stage HF ckd HTN bradycardia recent nstemi cont pressors , can wean down as feasible low dose dopamine as needed--started and has helped hemodynamics wean off levophed cont diuretics cpap daily for exercise poor prognosis--consider goals of care if pt gets extubated/ risk of repeat acute HF is very high recommend hospice eval give 20 mg iv lasix daily as pt is NPO severe hypernatremia and elevated bicarb, ---please correct as per hospitalist on free water flushes Plan discussed with: Patient Dietary Evaluation Review Comments: 1) If GI is preferred route consider Jevity 1.2 @ 70 ml/hr goal rate as tolerated 2) If pt remains NPO >7days consider TPN to meet at least 75% of estimated needs 3) Advance pt diet to a Renal Specific K2,low phos,MILLER,2gmNa,50gPro diet 3) Continue current plan of care Expected Outcomes/Goals: 1) Pt to receive adequate nutrition support with 72 hrs of NPO status 2) Pt diet to advance 3) F/U in 2-3 days Date of Service: Jun 11, 2024 Billing Provider: ASHLEIGH MANZO MD Common Visit Codes: NOT BILLABLE ASHLEIGH MANZO MD Jun 11, 2024 10:58
[2024-06-11] MEDS: FREE WATER GT SCH ×2 (15:26→17:25)
[2024-06-11] MEDS: D5W 5% 1,000 ML IV SCH (17:24)
--- NOTE | 2024-06-11 21:59 | DVHPNRES ---
Progress Note Date Seen: Jun 12, 2024 Resident Creating Document: MARY ANN PAT RESIDENT Has the PT tested + for MRSA If YES, has PT been informed?: No Medical Necessity Reason Pt with a Central, PICC or Fol: Yes The following are medically ne: Mays Catheter Reason for mays catheter: Strict I&O Subjective Review of Systems HPI: 83/male, past medical history: Heart failure reduced ejection fraction 5%, CKD, cardiogenic shock, UTI, CVA, dementia, hypertension Patient is 83-year-old male who brought to the hospital via EMS for altered level of consciousness from [facility]. Patient was recently hospitalized for cardiogenic shock and sent to [facility] for treatment of UTI secondary to E coli ESBL treated with ertapenem IV. During stay at [facility], patient was confused, altered that listed patient was brought to the emergency department for evaluation. With further evaluation, patient was intubated by ER provider to protect airway on admission day 05/30/2024. Hospital course: Patient was intubated with mechanical ventilation volume control. Treated with IV antibiotic meropenem, vancomycin, vasopressors including Levophed and dobutamine initially. Respiratory culture was done which came positive for Acinetobacter baumannii sensitive to meropenem. Patient continued on antibiotic. Over the course of hospitalization patient's FiO2 requirement reduce to 45 %. Patient continued to have clear lungs without accessory oxygen requirement. WBC count significantly improved over the course of hospitalization as well with kidney function improvement as well. Extubated on 06/04/2024. Patient seen and examined at bedside. No new complaints. Patient's mental status much better compared to previously. Able to answer questions. Patient will receive free water and IV fluids for hypernatremia. No clinical signs of severe hypernatremia. Objective vital signs Vital Sign Date Time Temp Pulse Resp B/P (MAP) Pulse Ox O2 Delivery O2 Flow Rate FiO2 06/11/24 21:00 98.0 52 19 123/52 (75) 90 98.0 06/11/24 08:00 Nasal Cannula* 5 40 Total Intake and Output 06/10/24 06/10/24 06/11/24 15:00 23:00 07:00 Intake Total 50 ml 50 ml 50 ml Output Total 1050 ml 375 ml Balance 50 ml -1000 ml -325 ml medications Current Medications Medications Dose Ordered Sig/Elpidio Route Start Time Stop Time Status Last Admin Dose Admin Ondansetron HCl 4 mg Q4HP PRN IV 05/29/24 22:30 Acetaminophen 650 mg Q6HP PRN PO 05/29/24 22:30 06/09/24 21:44 650 MG Nitroglycerin 0.4 mg Q5MINP PRN SL 05/29/24 22:30 Enteral Nutritional Formula 1,000 ml 30ML/HR GT 05/31/24 17:15 Enoxaparin Sodium 30 mg DAILY SC 06/05/24 10:00 06/10/24 09:16 30 MG Aspirin 81 mg DAILY GT 06/05/24 10:00 06/11/24 09:19 81 MG Atorvastatin Calcium 10 mg HS GT 06/05/24 22:00 06/11/24 20:19 10 MG Pantoprazole Sodium 40 mg DAILY IV 06/05/24 10:00 06/11/24 09:21 40 MG Meropenem 50 ml @ 17 mls/hr Q8H IV 06/05/24 10:00 06/11/24 20:16 17 MLS/HR Purified Water 200 ml Q4HR GT 06/11/24 18:00 06/11/24 20:25 200 ML Dextrose 1,000 ml @ 60 mls/hr [id number] IV 06/11/24 16:45 06/11/24 17:24 60 MLS/HR Examination General Appearance: Cooperative. Well developed. Well nourished. NAD Head Exam: Normal inspection Neck Exam: Normal inspection. Non-tender. Normal alignment Pulmonary/Respiratory: Chest non-tender. Clear bilateral breath sounds Cardiovascular/Chest: Regular rate and rhythm. No murmurs. No JVD. Peripheral Pulses: 2+ Radial (R). 2+ Radial (L). 2+ Pedal (R). 2+ Pedal (L) Abdominal Exam: Normal bowel sounds. Soft. Nontender. No hepatospenomegaly. No masses Ankle Exam: Negative ankle edema Lower extremities: Negative lower extremity edema Neuro/Mental Status: A&O x 2 laboratory and microbiology Laboratory Tests 06/11/24 08:07 06/11/24 04:53 Test 06/11/24 08:07 Range/Units Serum Glucose 104 74-106 mg/dL Microbiology Date/Time Source Procedure Growth Status 06/03/24 16:46 Urine - Mays Port Urine Culture - Final Complete 05/30/24 16:37 Stool Clostridium difficile Toxin Assay - Final Complete 05/30/24 03:15 Nose MRSA Screen - Final Complete 05/29/24 21:15 Sputum Gram Stain - Final Complete 05/29/24 21:15 Respiratory Culture - Final Acinetobacter baumannii Complete 05/29/24 19:38 Blood Blood Culture - Final NO GROWTH AFTER 5 DAYS OF INCUBATION. Complete Problem List/Assessment/Plan Problem List/Assessment/Plan Neurology Acute metabolic encephalopathy likely due to sepsis: Improved -continue to monitor Altered mental status likely due to above: Improving -AOA*2 History of dementia History of CVA -resume aspirin, atorvastatin Respiratory Acute hypoxic respiratory failure due to ARDS/CHF exacerbation -extubated, currently on 4 L via nasal cannula Pneumonia due to A baumanii: iv meropenem Extubated on 06/04/2024 Cardiology/Infectious Septic shock due to UTI -continue IV antibiotic meropenem 1 g q.12, linezolid 600 mg q.12. -urine culture(05/11/2024): E coli ESBL Acute on chronic systolic heart failure(heart failure reduced ejection fraction, ejection fraction 5%) -we will resume home medication if he has volume overload: Lasix -ECHO(05/12/24):lvef 5-7% Cardiogenic shock: -vasopressor: off levophed, NSTEMI type 2 likely due to above -troponin 135 on 05/29/2024 non trending. 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 Feeding via NG tube. Lines Right subclavian triple-lumen: removed Place midline. Mays catheter PUD prophylaxis: Protonix DVT prophylaxis: Lovenox Critical care time spent greater than 30 minute Plan discussed with Dr Bates Plan discussed with: Patient, Other My Orders My Orders Orders - MARY ANN PAT RESIDENT Procedure Category Date Status Time Free Water PHA 06/11/24 In Process 18:00 D5w 5% (Dextrose 5%) PHA 06/11/24 In Process 16:45 Dietary Evaluation Review Comments: 1) If GI is preferred route consider Jevity 1.2 @ 70 ml/hr goal rate as tolerated 2) If pt remains NPO >7days consider TPN to meet at least 75% of estimated needs 3) Advance pt diet to a Renal Specific K2,low phos,MILLER,2gmNa,50gPro diet 3) Continue current plan of care Expected Outcomes/Goals: 1) Pt to receive adequate nutrition support with 72 hrs of NPO status 2) Pt diet to advance 3) F/U in 2-3 days Date of Service: Jun 11, 2024 Billing Provider: SHARMIN PETERS MD Common Visit Codes: [id number] CARE 30-74 MIN MARY ANN PAT RESIDENT Jun 11, 2024 21:59 SHARMIN PETERS MD Jun 12, 2024 14:48
[2024-06-12] VITALS (7 sets, daily range): BP systolic 110–136; BP diastolic 52–67; PULSE 55–63; RESP 16–18; TEMP 98–98.4; O2SAT 92–98
[2024-06-12 05:30] LABS: Basophils # (auto) 0.1 10 ^3/uL (0-0.2); Eosinophils # (auto) 0.4 10 ^3/uL (0-0.8); Eosinophils % (auto) 6.6 % (0.0-7.0); Hematocrit 41.4 % (41.0-53.0); Hemoglobin 13.5 g/dL (13.5-17.5); Lymphocytes # (auto) 0.8 10 ^3/uL (0.4-5.4); Lymphocytes % (auto) 11.8 % (10.0-50.0); Mean Corpuscular Hemoglobin 32.6 pg (28.0-32.0); Mean Corpuscular Hgb Conc. 32.6 g/dL (32.0-36.0); Monocytes # (auto) 0.3 10 ^3/uL (0-1.3); Monocytes % (auto) 4.9 % (0.0-12.0); Neutrophils # (auto) 5.1 10 ^3/uL (1.6-8.6); Neutrophils % (auto) 75.7 % (37.0-80.0); Nucleated Red Blood Cells % 0.1 %; Platelet Count (auto) 136 10^3/uL (140-450); Red Blood Cells 4.15 10^6/uL (4.5-5.90); Red Cell Distribution Width 15.4 % (11.8-14.3); White Blood Cell 6.8 10^3/uL (4.4-10.8)
[2024-06-12 05:51] LABS: Chloride 105 mmol/L (98-107); Potassium 3.5 mmol/L (3.5-5.1)
[2024-06-12 05:57] LABS: BUN/Creatinine Ratio 28.9 (10.0-20.0); Blood Urea Nitrogen 26 mg/dL (9-23); Glucose 105 mg/dL (74-106)
[2024-06-12 06:17] LABS: Sodium 150 mmol/L (136-145)
[2024-06-12 06:18] LABS: Anion Gap 4.99999 (5-15)
[2024-06-12 06:26] LABS: Carbon Dioxide > 40 mmol/L (20-31)
--- NOTE | 2024-06-12 17:10 | MEDREC ---
[facility] Intervention Section I [facility] Intervention: Review courses of therapy (14 DAYS ON MEROPENEM LEUKOCYTOSIS RESOLVED PATIENT AFEBILE - RECOMMENDED DURATION OF THERAPY 5 TO 7 DAYS - PLEASE CONSIDER D/C MEROPENEM IF PATIENT CLINICALLY STABLE ) JESSICA CLARK PHARMACIST Jun 12, 2024 17:10
--- NOTE | 2024-06-12 18:24 | DVHPNRES ---
Progress Note Date Seen: Jun 12, 2024 Resident Creating Document: MARY ANN PAT RESIDENT Has the PT tested + for MRSA If YES, has PT been informed?: No Medical Necessity Reason Pt with a Central, PICC or Fol: Yes The following are medically ne: Mays Catheter Reason for mays catheter: Strict I&O Subjective Review of Systems HPI: 83/male, past medical history: Heart failure reduced ejection fraction 5%, CKD, cardiogenic shock, UTI, CVA, dementia, hypertension Patient is 83-year-old male who brought to the hospital via EMS for altered level of consciousness from [facility]. Patient was recently hospitalized for cardiogenic shock and [facility] for treatment of UTI secondary to E coli ESBL treated with ertapenem IV. During stay at [facility], patient was confused, altered that listed patient was brought to the emergency department for evaluation. With further evaluation, patient was intubated by ER provider to protect airway on admission day 05/30/2024. Hospital course: Patient was intubated with mechanical ventilation volume control. Treated with IV antibiotic meropenem, vancomycin, vasopressors including Levophed and dobutamine initially. Respiratory culture was done which came positive for Acinetobacter baumannii sensitive to meropenem. Patient continued on antibiotic. Over the course of hospitalization patient's FiO2 requirement reduce to 45 %. Patient continued to have clear lungs without accessory oxygen requirement. WBC count significantly improved over the course of hospitalization as well with kidney function improvement as well. Extubated on 06/04/2024. Patient seen and examined at bedside. No new complaints. Continue to be alert. No night events. Objective vital signs Vital Sign Date Time Temp Pulse Resp B/P (MAP) Pulse Ox O2 Delivery O2 Flow Rate FiO2 06/12/24 17:56 98.4 58 18 129/58 (81) 95 98.4 06/12/24 08:00 Nasal Cannula* 5 40 Total Intake and Output 06/11/24 06/11/24 06/12/24 15:00 23:00 07:00 Intake Total 50 ml 134 ml 1010 ml Output Total 1000 ml 350 ml Balance 50 ml -866 ml 660 ml medications Current Medications Medications Dose Ordered Sig/Elpidio Route Start Time Stop Time Status Last Admin Dose Admin Ondansetron HCl 4 mg Q4HP PRN IV 05/29/24 22:30 Acetaminophen 650 mg Q6HP PRN PO 05/29/24 22:30 06/09/24 21:44 650 MG Nitroglycerin 0.4 mg Q5MINP PRN SL 05/29/24 22:30 Enteral Nutritional Formula 1,000 ml 30ML/HR GT 05/31/24 17:15 Enoxaparin Sodium 30 mg DAILY SC 06/05/24 10:00 06/12/24 10:06 30 MG Aspirin 81 mg DAILY GT 06/05/24 10:00 06/12/24 10:06 81 MG Atorvastatin Calcium 10 mg HS GT 06/05/24 22:00 06/11/24 20:19 10 MG Pantoprazole Sodium 40 mg DAILY IV 06/05/24 10:00 06/12/24 10:06 40 MG Meropenem 50 ml @ 17 mls/hr Q8H IV 06/05/24 10:00 06/12/24 17:17 17 MLS/HR Purified Water 200 ml Q4HR GT 06/11/24 18:00 06/12/24 17:19 200 ML Dextrose 1,000 ml @ 60 mls/hr [id number] IV 06/11/24 16:45 06/12/24 11:41 60 MLS/HR Examination General Appearance: Cooperative. Well developed. Well nourished. NAD Head Exam: Normal inspection Neck Exam: Normal inspection. Non-tender. Normal alignment Pulmonary/Respiratory: Chest non-tender. Clear bilateral breath sounds Cardiovascular/Chest: Regular rate and rhythm. No murmurs. No JVD. Peripheral Pulses: 2+ Radial (R). 2+ Radial (L). 2+ Pedal (R). 2+ Pedal (L) Abdominal Exam: Normal bowel sounds. Soft. Nontender. No hepatospenomegaly. No masses Ankle Exam: Negative ankle edema Lower extremities: Negative lower extremity edema Neuro/Mental Status: A&O x 2 laboratory and microbiology Laboratory Tests 06/12/24 05:00 Test 06/12/24 05:00 Range/Units Serum Glucose 105 74-106 mg/dL Microbiology Date/Time Source Procedure Growth Status 06/03/24 16:46 Urine - Mays Port Urine Culture - Final Complete 05/30/24 16:37 Stool Clostridium difficile Toxin Assay - Final Complete 05/30/24 03:15 Nose MRSA Screen - Final Complete 05/29/24 21:15 Sputum Gram Stain - Final Complete 05/29/24 21:15 Respiratory Culture - Final Acinetobacter baumannii Complete 05/29/24 19:38 Blood Blood Culture - Final NO GROWTH AFTER 5 DAYS OF INCUBATION. Complete Problem List/Assessment/Plan Problem List/Assessment/Plan Neurology Acute metabolic encephalopathy likely due to sepsis: Improved -continue to monitor Altered mental status likely due to above: Improving -AOA*2 History of dementia History of CVA -resume aspirin, atorvastatin Respiratory Acute hypoxic respiratory failure due to ARDS/CHF exacerbation -extubated, currently on 4 L via nasal cannula Extubated on 06/04/2024 Cardiology/Infectious Septic shock due to UTI -continue IV antibiotic meropenem 1 g q.12, linezolid 600 mg q.12. -urine culture(05/11/2024): E coli ESBL Acute on chronic systolic heart failure(heart failure reduced ejection fraction, ejection fraction 5%) -we will resume home medication if he has volume overload: Lasix -ECHO(05/12/24):lvef 5-7% Cardiogenic shock: -vasopressor: off levophed, NSTEMI type 2 likely due to above -troponin 135 on 05/29/2024 non trending. 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 Feeding via NG tube. Lines Right subclavian triple-lumen: removed Place midline. Mays catheter PUD prophylaxis: Protonix DVT prophylaxis: Lovenox Plan discussed with Dr Bates Plan discussed with: Other (RN) Dietary Evaluation Review Comments: 1) If GI is preferred route consider Jevity 1.2 @ 70 ml/hr goal rate as tolerated 2) If pt remains NPO >7days consider TPN to meet at least 75% of estimated needs 3) Advance pt diet to a Renal Specific K2,low phos,MILLER,2gmNa,50gPro diet 3) Continue current plan of care Expected Outcomes/Goals: 1) Pt to receive adequate nutrition support with 72 hrs of NPO status 2) Pt diet to advance 3) F/U in 2-3 days Date of Service: Jun 12, 2024 Billing Provider: SHARMIN PETERS MD Common Visit Codes: [id number] INP/OBS CARE(HIGH) MARY ANN PAT RESIDENT Jun 12, 2024 18:24 SHARMIN PETERS MD Jun 13, 2024 12:41
[2024-06-13] VITALS (8 sets, daily range): BP systolic 113–128; BP diastolic 52–69; PULSE 56–74; RESP 17–18; TEMP 96.7–98.1; O2SAT 92–95
[2024-06-13 07:12] LABS: Basophils # (auto) 0 10 ^3/uL (0-0.2); Basophils % (auto) 0.6 % (0.0-2.0); Eosinophils # (auto) 0.3 10 ^3/uL (0-0.8); Eosinophils % (auto) 4.7 % (0.0-7.0); Hemoglobin 12.4 g/dL (13.5-17.5); Lymphocytes # (auto) 0.9 10 ^3/uL (0.4-5.4); Lymphocytes % (auto) 11.9 % (10.0-50.0); Mean Corpuscular Hemoglobin 32.6 pg (28.0-32.0); Mean Corpuscular Hgb Conc. 32.7 g/dL (32.0-36.0); Mean Corpuscular Volume 99.6 fL (80.0-100.0); Monocytes # (auto) 0.4 10 ^3/uL (0-1.3); Monocytes % (auto) 5.1 % (0.0-12.0); Neutrophils # (auto) 5.8 10 ^3/uL (1.6-8.6); Neutrophils % (auto) 77.7 % (37.0-80.0); Platelet Count (auto) 138 10^3/uL (140-450); Red Blood Cells 3.81 10^6/uL (4.5-5.90); Red Cell Distribution Width 15.4 % (11.8-14.3); White Blood Cell 7.5 10^3/uL (4.4-10.8)
[2024-06-13 07:14] LABS: Chloride 105 mmol/L (98-107); Potassium 3.5 mmol/L (3.5-5.1); Sodium 149 mmol/L (136-145)
[2024-06-13 07:15] LABS: Calcium 8.6 mg/dL (8.7-10.4)
[2024-06-13 07:20] LABS: BUN/Creatinine Ratio 29.7 (10.0-20.0); Blood Urea Nitrogen 22 mg/dL (9-23); Glucose 101 mg/dL (74-106)
[2024-06-13 07:35] LABS: Anion Gap 3.99999 (5-15)
[2024-06-13 07:37] LABS: Carbon Dioxide > 40 mmol/L (20-31)
--- NOTE | 2024-06-13 15:28 | DVH ---
EXAM: CT HEAD WITHOUT CONTRAST HISTORY: TRAUMA COMPARISON: CT HEAD WITHOUT CONTRAST on DOS: 05/29/24, CT HEAD WITHOUT CONTRAST on DOS: 05/11/24 TECHNIQUE: Axial images were obtained and reformatted in coronal and sagittal planes. All CT scans at this medical facility are performed using dose modulation techniques as appropriate t o a performed exam including the following: Automated exposure control was utilized; adjustment of th e MA and/or KV according to patient size; and use of iterative reconstruction technique. CT Dose: CTDI volume is 67.28 mGy. Dose-length product is 1325.6 mGy*cm FINDINGS: there is age concordant generalized parenchymal volume loss . There is stable chronic infarct in the left frontal lobe with associated encephalomalacia. There is no evidence of acute intracranial hemorr jillian, mass, mass effect midline shift. There is no hydrocephalus or extra-axial fluid collection. The visualized paranasal sinuses and mastoid air cells are clear. The calvarium is intact. IMPRESSION: 1. No acute intracranial process. 2. Redemonstrated is a chronic left frontal lobe infarct. HS:Y
--- NOTE | 2024-06-13 17:26 | DVHPNRES ---
Progress Note Date Seen: Jun 13, 2024 Resident Creating Document: MARY ANN PAT RESIDENT Has the PT tested + for MRSA If YES, has PT been informed?: No Medical Necessity Reason Pt with a Central, PICC or Fol: Yes The following are medically ne: Mays Catheter Reason for mays catheter: Strict I&O Subjective Review of Systems HPI: 83/male, past medical history: Heart failure reduced ejection fraction 5%, CKD, cardiogenic shock, UTI, CVA, dementia, hypertension Patient is 83-year-old male who brought to the hospital via EMS for altered level of consciousness from [facility]. Patient was recently hospitalized for cardiogenic shock and sent to [facility] [place] for treatment of UTI secondary to E coli ESBL treated with ertapenem IV. During stay at [facility] facility, patient was confused, altered that listed patient was brought to the emergency department for evaluation. With further evaluation, patient was intubated by ER provider to protect airway on admission day 05/30/2024. Hospital course: Patient was intubated with mechanical ventilation volume control. Treated with IV antibiotic meropenem, vancomycin, vasopressors including Levophed and dobutamine initially. Respiratory culture was done which came positive for Acinetobacter baumannii sensitive to meropenem. Patient continued on antibiotic. Over the course of hospitalization patient's FiO2 requirement reduce to 45 %. Patient continued to have clear lungs without accessory oxygen requirement. WBC count significantly improved over the course of hospitalization as well with kidney function improvement as well. Extubated on 06/04/2024. Patient seen and examined at bedside. No new complaints. Continue to be alert. No night events. PT evaluation done, Diet started. Objective vital signs Vital Sign Date Time Temp Pulse Resp B/P (MAP) Pulse Ox O2 Delivery O2 Flow Rate FiO2 06/13/24 16:52 98.0 74 17 115/69 (84) 95 98.0 06/13/24 08:00 Nasal Cannula* 5 40 Total Intake and Output 06/12/24 06/12/24 06/13/24 15:00 23:00 07:00 Intake Total 820 ml 960 ml Output Total 250 ml 1200 ml Balance 570 ml -240 ml medications Current Medications Medications Dose Ordered Sig/Elpidio Route Start Time Stop Time Status Last Admin Dose Admin Ondansetron HCl 4 mg Q4HP PRN IV 05/29/24 22:30 Acetaminophen 650 mg Q6HP PRN PO 05/29/24 22:30 06/13/24 05:15 650 MG Nitroglycerin 0.4 mg Q5MINP PRN SL 05/29/24 22:30 Enteral Nutritional Formula 1,000 ml 30ML/HR GT 05/31/24 17:15 Enoxaparin Sodium 30 mg DAILY SC 06/05/24 10:00 06/12/24 10:06 30 MG Aspirin 81 mg DAILY GT 06/05/24 10:00 06/12/24 10:06 81 MG Atorvastatin Calcium 10 mg HS GT 06/05/24 22:00 06/12/24 21:04 10 MG Pantoprazole Sodium 40 mg DAILY IV 06/05/24 10:00 06/13/24 09:30 40 MG Meropenem 50 ml @ 17 mls/hr Q8H IV 06/05/24 10:00 06/13/24 16:58 17 MLS/HR Dextrose 1,000 ml @ 60 mls/hr [id number] IV 06/11/24 16:45 06/13/24 05:10 60 MLS/HR Examination General Appearance: Cooperative. Well developed. Well nourished. NAD Head Exam: Normal inspection Neck Exam: Normal inspection. Non-tender. Normal alignment Pulmonary/Respiratory: Chest non-tender. Clear bilateral breath sounds Cardiovascular/Chest: Regular rate and rhythm. No murmurs. No JVD. Peripheral Pulses: 2+ Radial (R). 2+ Radial (L). 2+ Pedal (R). 2+ Pedal (L) Abdominal Exam: Normal bowel sounds. Soft. Nontender. No hepatospenomegaly. No masses Ankle Exam: Negative ankle edema Lower extremities: Negative lower extremity edema Neuro/Mental Status: A&O x 2 laboratory and microbiology Laboratory Tests 06/13/24 05:20 Test 06/13/24 05:20 Range/Units Serum Glucose 101 74-106 mg/dL Microbiology Date/Time Source Procedure Growth Status 06/03/24 16:46 Urine - Mays Port Urine Culture - Final Complete 05/30/24 16:37 Stool Clostridium difficile Toxin Assay - Final Complete 05/30/24 03:15 Nose MRSA Screen - Final Complete 05/29/24 21:15 Sputum Gram Stain - Final Complete 05/29/24 21:15 Respiratory Culture - Final Acinetobacter baumannii Complete 05/29/24 19:38 Blood Blood Culture - Final NO GROWTH AFTER 5 DAYS OF INCUBATION. Complete Problem List/Assessment/Plan Problem List/Assessment/Plan Neurology Acute metabolic encephalopathy likely due to sepsis: Improved -continue to monitor Altered mental status likely due to above: Improving -AOA*2 History of dementia History of CVA -resume aspirin, atorvastatin Respiratory Acute hypoxic respiratory failure due to ARDS/CHF exacerbation -extubated, currently on 4 L via nasal cannula Extubated on 06/04/2024 Cardiology/Infectious Septic shock due to UTI -continue IV antibiotic meropenem 1 g q.12, linezolid 600 mg q.12. -urine culture(05/11/2024): E coli ESBL Acute on chronic systolic heart failure(heart failure reduced ejection fraction, ejection fraction 5%) -we will resume home medication if he has volume overload: Lasix -ECHO(05/12/24):lvef 5-7% Cardiogenic shock: -vasopressor: off levophed, NSTEMI type 2 likely due to above -troponin 135 on 05/29/2024 non trending. -cardiology on board Nephrology AB due to VMN in setting of CKD: Resolved -creatinine 1.20, 1.01 -GFR 60, 74 -continue to monitor kidney function Hypernatremia, improving -D5W 60 ml /hr continue Metabolic alkalosis possible in setting of volume contraction -likely due to dehydration. 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 Feeding via NG tube. Lines Right subclavian triple-lumen: removed Place midline. Mays catheter PUD prophylaxis: Protonix DVT prophylaxis: Lovenox Plan discussed with Dr Bates Plan discussed with: Other My Orders My Orders Orders - MARY ANN PAT RESIDENT Procedure Category Date Status Time Head Without Contrast CT 06/13/24 Resulted 14:48 Dietary Evaluation Review Comments: 1) If GI is preferred route consider Jevity 1.2 @ 70 ml/hr goal rate as tolerated 2) If pt remains NPO >7days consider TPN to meet at least 75% of estimated needs 3) Advance pt diet to a Renal Specific K2,low phos,MILLER,2gmNa,50gPro diet 3) Continue current plan of care Expected Outcomes/Goals: 1) Pt to receive adequate nutrition support with 72 hrs of NPO status 2) Pt diet to advance 3) F/U in 2-3 days Date of Service: Jun 13, 2024 Billing Provider: SHARMIN PETERS MD Common Visit Codes: [id number] INP/OBS CARE(HIGH) Secondary Visit Codes: [id number] CARE PLAN 30 MINUTES MARY ANN PAT RESIDENT Jun 13, 2024 17:26 SHARMIN PETERS MD Jun 14, 2024 12:48
[2024-06-14] VITALS (7 sets, daily range): BP systolic 116–131; BP diastolic 47–59; PULSE 55–70; RESP 16–18; TEMP 97.6–98.2; O2SAT 94–96
[2024-06-14 07:14] LABS: Basophils # (auto) 0.1 10 ^3/uL (0-0.2); Eosinophils # (auto) 0.3 10 ^3/uL (0-0.8); Eosinophils % (auto) 6.2 % (0.0-7.0); Hematocrit 34.1 % (41.0-53.0); Hemoglobin 11.4 g/dL (13.5-17.5); Lymphocytes # (auto) 0.9 10 ^3/uL (0.4-5.4); Lymphocytes % (auto) 17.7 % (10.0-50.0); Mean Corpuscular Hemoglobin 32.9 pg (28.0-32.0); Mean Corpuscular Hgb Conc. 33.4 g/dL (32.0-36.0); Mean Corpuscular Volume 98.4 fL (80.0-100.0); Monocytes # (auto) 0.4 10 ^3/uL (0-1.3); Monocytes % (auto) 7.1 % (0.0-12.0); Neutrophils # (auto) 3.6 10 ^3/uL (1.6-8.6); Nucleated Red Blood Cells % 0.1 %; Platelet Count (auto) 129 10^3/uL (140-450); Red Blood Cells 3.47 10^6/uL (4.5-5.90); Red Cell Distribution Width 15.1 % (11.8-14.3); White Blood Cell 5.2 10^3/uL (4.4-10.8)
[2024-06-14 07:24] LABS: Chloride 105 mmol/L (98-107); Potassium 3.9 mmol/L (3.5-5.1); Sodium 147 mmol/L (136-145)
[2024-06-14 07:26] LABS: Calcium 8.5 mg/dL (8.7-10.4)
[2024-06-14 07:30] LABS: BUN/Creatinine Ratio 28.8 (10.0-20.0); Blood Urea Nitrogen 19 mg/dL (9-23); Glucose 105 mg/dL (74-106)
[2024-06-14 07:45] LABS: Anion Gap 1.99999 (5-15); Carbon Dioxide > 40 mmol/L (20-31)
[2024-06-14] MEDS: FLUCONAZOLE 200MG/100ML 100 ML IV SCH (09:27)
--- NOTE | 2024-06-14 18:19 | DVHDSRES ---
Discharge Summary Date of Admission Resident Creating Document: MARY ANN PAT RESIDENT May 29, 2024 at 22:16 Date of Discharge: Jun 14, 2024 Labs/Diagnostic Data: Laboratory Results Test 06/14/24 04:49 06/11/24 10:48 06/10/24 05:43 06/04/24 07:40 White Blood Count 5.2 10^3/uL (4.4-10.8) Red Blood Count 3.47 10^6/uL (4.5-5.90) Hemoglobin 11.4 g/dL (13.5-17.5) Hematocrit 34.1 % (41.0-53.0) Mean Corpuscular Volume 98.4 fL (80.0-100.0) Mean Corpuscular Hemoglobin 32.9 pg (28.0-32.0) Mean Corpuscular Hemoglobin Concent 33.4 g/dL (32.0-36.0) Red Cell Distribution Width 15.1 % (11.8-14.3) Platelet Count 129 10^3/uL (140-450) Mean Platelet Volume 9.1 fL (6.9-10.8) Neutrophils (%) (Auto) 68.0 % (37.0-80.0) Lymphocytes (%) (Auto) 17.7 % (10.0-50.0) Monocytes (%) (Auto) 7.1 % (0.0-12.0) Eosinophils (%) (Auto) 6.2 % (0.0-7.0) Basophils (%) (Auto) 1.0 % (0.0-2.0) Neutrophils # (Auto) 3.6 10 ^3/uL (1.6-8.6) Lymphocytes # (Auto) 0.9 10 ^3/uL (0.4-5.4) Monocytes # (Auto) 0.4 10 ^3/uL (0-1.3) Eosinophils # (Auto) 0.3 10 ^3/uL (0-0.8) Basophils # (Auto) 0.1 10 ^3/uL (0-0.2) Nucleated Red Blood Cells 0.1 % Sodium Level 147 mmol/L (136-145) Potassium Level 3.9 mmol/L (3.5-5.1) Chloride Level 105 mmol/L (98-107) Carbon Dioxide Level > 40 mmol/L (20-31) Anion Gap 1.19228 (5-15) Blood Urea Nitrogen 19 mg/dL (9-23) Creatinine 0.66 mg/dL (0.700-1.30) Glomerular Filtration Rate Calc 93 mL/min (>90) BUN/Creatinine Ratio 28.8 (10.0-20.0) Serum Glucose 105 mg/dL (74-106) Calcium Level 8.5 mg/dL (8.7-10.4) Blood Gas Specimen Type Arterial Blood Gas Sample Site Right radial Blood Gas Patient Temperature 37.0 Arterial Blood Date Drawn [id number] Arterial Blood pH 7.457 (7.350-7.450) Arterial Blood Partial Pressure CO2 55.7 mmHg (35.0-48.0) Arterial Blood Partial Pressure O2 78.0 mmHg (83.0-108.0) Arterial Blood HCO3 38.5 mmol/L (21.0-28.0) Arterial Blood Oxygen Saturation 95.6 % (94.0-98.0) Arterial Blood Base Excess 12.4 mmol/L (-2.0-3.0) Arterial Blood Oxyhemoglobin 94.8 % (94.0-98.0) Arterial Blood Carboxyhemoglobin 0.7 % (0.5-1.5) Arterial Blood Methemoglobin 0.1 % (0.0-1.5) Bacilio Test Yes Blood Gas Total Hemoglobin 13.20 g/dL (13.5-17.5) Blood Gas Liter Flow 5.00 Blood Gas Modality Nasal cannula FiO2 % 40.0 Total Bilirubin 0.7 mg/dL (0.2-1.0) Aspartate Amino Transferase (AST) 197 U/L (13-40) Alanine Aminotransferase (ALT) 181 U/L (7-40) Alkaline Phosphatase 306 U/L (46-116) Total Protein 5.9 g/dL (5.7-8.2) Albumin 3.0 g/dL (3.2-4.8) Blood Gas Spontaneous Rate 22 Blood Gas Pressure Support 8 Blood Gas PEEP or CPAP 5.0 Test 06/04/24 04:43 06/03/24 11:15 06/02/24 07:35 06/02/24 03:40 Magnesium Level 2.5 mg/dL (1.6-2.6) Blood Gas Spontaneous Tidal Volume 500 Blood Gas Set Respiration Rate 20.0 Blood Gas Tidal Volume 450.0 Phosphorus Level 3.4 mg/dL (2.4-5.1) Test 06/01/24 03:26 05/31/24 08:05 05/30/24 11:14 05/30/24 11:10 Estimated GFR () 45 mL/min Estimated GFR (Non- 37 mL/min Ammonia 24 umol/L (11-32) Random Vancomycin Level 21.1 ug/mL (5-10) Urine Color Yellow (Yellow) Urine Clarity Turbid (Clear) Urine pH 5.0 (5.0-9.0) Urine Specific Otis 1.012 (1.001-1.035) Urine Protein 1+ (Negative) Urine Ketones Negative (Negative) Urine Blood 2+ /uL (Negative) Urine Nitrite Negative (Negative) Urine Bilirubin Negative (Negative) Urine Urobilinogen Normal mg/dL (Negative) Urine Leukocyte Esterase 1+ /uL (Negative) Urine RBC 5 /hpf (0 - 3) Urine WBC 17 /hpf (0 - 3) Urine Squamous Epithelial Cells None seen /hpf (<5) Urine Bacteria Few /hpf (None Seen) Urine Hyaline Casts Few /lpf (0 - 2) Urine Mucus Few (None Seen) Urine Creatinine 77.37 mg/dL (30.0-125.0) Urine Protein/Creatinine Ratio 1.05 Urine Sodium 64 mmol/L (40-220) Urine Glucose Normal mg/dL (Normal) Urine Total Protein 80.9 mg/dL (1-14) Vitamin D 25-Hydroxy 30.1 ng/mL (30.0-100) Parathyroid Hormone (Intact) 403.8 pg/mL (18.4-80.1) Hepatitis B Surface Antigen Negative (Negative) Hepatitis C Antibody Negative (Negative) Test 05/30/24 05:00 05/29/24 22:40 05/29/24 22:30 05/29/24 22:07 B-Type Natriuretic Peptide 42.87 pg/mL (0-100) Prothrombin Time 11.4 sec (9.3-11.8) Prothrombin Time INR 1.08 (0.9-1.15) Activated Partial Thromboplast Time 35.7 SEC (24.5-34.5) Creatine Kinase 118 U/L (46-171) Troponin I High Sensitivity 134 ng/L (</=54) Blood Gas Critical Value Read Back Yes Blood Gas Notified Whom Patricio kinsey md Blood Gas Notified Time [id number] Blood Gas Notified By Nanda gregorio chapter relations administrator Test 05/29/24 20:03 05/29/24 20:01 05/29/24 19:38 SARS-CoV-2 Antigen (Rapid) Negative (NEGATIVE) POC Glucose 96 mg/dl (70-106) Lactic Acid Level 0.9 mmol/L (0.4-2.0) Other Laboratory Tests 06/14/24 04:49 Brief Hx & Hospital Course: Patient is 83-year-old male with Heart failure reduced ejection fraction 5%, CKD, cardiogenic shock, UTI, CVA, dementia, hypertension.Patient was recently hospitalized for cardiogenic shock and [facility] to [facility] for treatment of UTI secondary to E coli ESBL treated with ertapenem IV. During stay at senior living facility, patient was confused, altered that listed patient was brought to the emergency department for evaluation. With further evaluation, patient was intubated by ER provider to protect airway on admission day 05/30/2024. Patient was intubated mechanical ventilation with volume control and started treatment with IV meropenem, vancomycin and initially requiring vasopressors including Levophed and dobutamine. Patient was diagnosed with septic shock due to pneumonia, respiratory culture came positive for Acinetobacter baumannii sensitive to meropenem. Patient continued on same antibiotic. Over the course of hospitalization patient's oxygen requirement reduce to 45%, not requiring any vasopressors and patient was extubated on 06/04/2024. Patient was downgraded to telemetry. Patient continued on antibiotic however patient become hypernatremic, patient was given IV fluid D5W, free water. Over the course of hospitalization patient's mental status also improved continued to be monitored with sitter. Patient also worked with physical therapy during hospitalization. Given patient was hemodynamically stable, able to tolerate diet, not in acute distress, prolonged discussion about plan of care done with daughter and decided to patient will go to [facility]. All discharge planning discussed with daughter over telephone and they agreed verbally. time spent in discharge planning was 41 mins Consults/Reason for consult Condition at Discharge: Stable Final Diagnosis/Problems List Acute metabolic encephalopathy likely due to septic shock Altered mental status likely due to above History of dementia History of CVA Acute hypoxic respiratory failure due to ARDS/CHF exacerbation Septic shock due to UTI Acute on chronic systolic heart failure(heart failure reduced ejection fraction, ejection fraction 5%) Cardiogenic shock: NSTEMI type 2 likely due to cardiogenic shock AB due to VMN in setting of CKD: Resolved Hypernatremia, improving Metabolic alkalosis possible in setting of volume contraction Acute transaminitis Hyperglycemia , HGB A1c 5.2 Discharge Disposition: Long Term Facility Discharge Instruct/Medications Diet: Cardiac 2g Na,low cholest Activity: Light activity Follow Up/Referral: -transfer to [facility] Medications: -See snif paper Discharge Statement: "Patient was advised to return to the ER or call 911 if any headaches, dizziness, shortness of breath, chest pain, abdominal pain, bleeding, fevers, or worsening of medical condition. Patient was counseled about treatment plan, medications, possible side effects, patientverbalized understanding. All questions were answered to the best of my ability. This discharge took greater then 30 minutes in planning, reviewing documentation, counseling the patient, and discussing with other team members." ASSESSMENT ASSESSMENT Assessment hfref sepsis Date of Service: Jun 14, 2024 Billing Provider: SHARMIN PETERS MD Common Visit Codes: 38760-FRH/OBS DISCH DAY >30min MARY ANN PAT Jun 14, 2024 18:19 SHARMIN PETERS MD Jun 16, 2024 11:47
== END 2024-06-14 19:41 | DRG 870 ==
LOC: EDUNIT# 18:50 → EDBD 18:50 → ER 18:54 → OVERFLOW 22:16 → ICU WEST 05-30 03:10 → TELE-WESTW 06-05 17:38
PROVIDERS: ADMIT Internal Medicine; ATTEND Internal Medicine
PROC: 02HV33Z Insertion of Infusion Device into Superior Vena Cava, Percutaneous Approach (ICD-10-PCS; principal; 2024-05-29)
PROC: 0BH18EZ Insertion of Endotracheal Airway into Trachea, Via Natural or Artificial Opening Endoscopic (ICD-10-PCS; 2024-05-29)
PROC: 5A1955Z Respiratory Ventilation, Greater than 96 Consecutive Hours (ICD-10-PCS; 2024-05-29)
PROC: 05HF33Z Insertion of Infusion Device into Left Cephalic Vein, Percutaneous Approach (ICD-10-PCS; 2024-06-08)
PROC: B54NZZA Ultrasonography of Left Upper Extremity Veins, Guidance (ICD-10-PCS; 2024-06-08)
DX: A41.51 Sepsis due to Escherichia coli [E. coli] (principal); N17.0 Acute kidney failure with tubular necrosis; E11.10 Type 2 diabetes mellitus with ketoacidosis without coma; R57.0 Cardiogenic shock; R65.21 Severe sepsis with septic shock; J15.61 Pneumonia due to Acinetobacter baumannii; I21.A1 Myocardial infarction type 2; E43 Unspecified severe protein-calorie malnutrition; G92.8 Other toxic encephalopathy; J80 Acute respiratory distress syndrome; I50.43 Acute on chronic combined systolic (congestive) and diastolic (congestive) heart failure; E87.0 Hyperosmolality and hypernatremia; I42.0 Dilated cardiomyopathy; I13.0 Hypertensive heart and chronic kidney disease with heart failure and stage 1 through stage 4 chronic kidney disease, or unspecified chronic kidney disease; E87.1 Hypo-osmolality and hyponatremia; N39.0 Urinary tract infection, site not specified; E87.3 Alkalosis; Z16.12 Extended spectrum beta lactamase (ESBL) resistance; Z20.822 Contact with and (suspected) exposure to COVID-19; E86.0 Dehydration; E87.5 Hyperkalemia; N14.19 Nephropathy induced by other drugs, medicaments and biological substances; E11.22 Type 2 diabetes mellitus with diabetic chronic kidney disease; E88.09 Other disorders of plasma-protein metabolism, not elsewhere classified; T36.8X5A Adverse effect of other systemic antibiotics, initial encounter; F17.200 Nicotine dependence, unspecified, uncomplicated; F03.90 Unspecified dementia, unspecified severity, without behavioral disturbance, psychotic disturbance, mood disturbance, and anxiety; N18.9 Chronic kidney disease, unspecified; E78.5 Hyperlipidemia, unspecified; N20.0 Calculus of kidney; Z86.73 Personal history of transient ischemic attack (TIA), and cerebral infarction without residual deficits; I25.2 Old myocardial infarction; Z68.24 Body mass index [BMI] 24.0-24.9, adult; Z91.81 History of falling
CPT/HCPCS: 31500; 36415; 36556; 36600; 70450; 71045; 74018; 76775; 80048; 80053; 80069; 80202; 81001; 82140; 82306; 82550; 82570; 82805; 82962; 83605; 83735; 83880; 83970; 84100; 84156; 84300; 84484; 85025; 85610; 85730; 86803; 87040; 87070; 87077; 87081; 87086; 87186; 87205; 87340; 87426; 87493; 92507; 92610; 93005; 94002; 94003; 94640; 97110; 97116; 97163; 97530; 99291; G0378; J0330; J1335; J1450; J2185; J2470; J2543